=== PATIENT | male | born 1970 | race Hispanic/Latino ===

== ENCOUNTER 2019-11-02 14:05 | Emergency (ER) | payer BC ==
[~2019-11-02] VITALS: Ht 180.3 cm; Wt 100.2 kg
--- OUTSIDE RECORDS SUMMARY | ~2019-11-02 | XMS | Clinical Summary ---
Demographics + + + | Address | [address] | | | [place] [address] | + + + | Home Phone | | + + + | Preferred Language | Unknown | + + + | Marital Status | | + + + | Islam Affiliation | Unknown | + + + | Race | Unknown | + + + | Ethnic Group | or | + + + Author + + + | Author | [facility] | | | and [place] | + + + | Organization | [facility] | | | and [place] | + + + | Address | Unknown | + + + | Phone | Unavailable | + + + Support + + +---------+ + | Name | Relationship | Address | Phone | + + +---------+ + | Bernadette Duffy | ECON | Unknown | | + + +---------+ + Care Team Providers + +------+ + | Care Embedded Firmware Developer Name | Role | Phone | + +------+ + | Unknown, Doctor | PCP | | + +------+ + Allergies No Known Allergies Medications + + + +---------+------+------+-------+ | Medication | Sig | Dispensed | Refills | Star | End | Statu | | | | | | t | Date | s | | | | | | Date | | | + + + +---------+------+------+-------+ | fish oil 1,000 mg | Take by mouth. | | 0 | | | Activ | | capsule | | | | | | e | + + + +---------+------+------+-------+ | gemfibrozil | Take 600 mg by mouth | | 0 | | | Activ | | (LOPID) 600 mg | 2 times daily | | | | | e | | tablet | (before meals). | | | | | | + + + +---------+------+------+-------+ | tiZANidine | Take 4 mg by mouth | | 0 | | | Activ | | (ZANAFLEX) 4 mg | nightly. | | | | | e | | tablet | | | | | | | + + + +---------+------+------+-------+ | ondansetron | Take 1 tablet by | 20 | 0 | 12/0 | | Activ | | (ZOFRAN ODT) 4 mg | mouth 3 (three) | tablet | | 9/20 | | e | | disintegrating | times daily as | | | 19 | | | | tablet | needed for Nausea | | | | | | | | for up to 7 days. | | | | | | + + + +---------+------+------+-------+ | Nerve Stimulator | Left shoulder | 1 | 0 | 02/1 | | Activ | | (TENS THERAPY PAIN | therapy | Device | | 1/20 | | e | | RELIEF) RODGER | | | | 20 | | | + + + +---------+------+------+-------+ | ONE TOUCH ULTRA | | | 0 | 02/0 | | Activ | | TEST strip | | | | 6/20 | | e | | | | | | 20 | | | + + + +---------+------+------+-------+ | Lancets (ONETOUCH | | | 0 | 02/0 | | Activ | | DELICA PLUS | | | | 6/20 | | e | | [id number]) MISC | | | | 20 | | | + + + +---------+------+------+-------+ | meloxicam (MOBIC) | Take 1 tablet by | 90 | 0 | 03/3 | | Activ | | 15 mg tablet | mouth Daily. | tablet | | 03/30 | | e | | | | | | 20 | | | + + + +---------+------+------+-------+ | metFORMIN | Take 500 mg by mouth | | 0 | | | Activ | | (GLUCOPHAGE) 500 mg | 2 times daily (with | | | | | e | | tablet | breakfast & | | | | | | | | dinner). | | | | | | + + + +---------+------+------+-------+ Active Problems + + + | Problem | Noted Date | + + + | Tear of rotator cuff, unspecified laterality, unspecified tear | 01/27/2019 | | extent, unspecified whether traumatic | | + + + + + | Overview: Added automatically from request for surgery | | [id number] | + + + + + | Impingement syndrome of left shoulder region | 01/27/2019 | + + + + + | Overview: Added automatically from request for surgery | | [id number] | + + + + + | Degenerative tear of glenoid labrum, unspecified laterality | 01/27/2019 | + + + + + | Overview: Added automatically from request for surgery | | [id number] | + + Encounters +--------+ + + + + | Date | Type | Specialty | Care Team | Description | +--------+ + + + + | 10/28/ | Telephone | Orthopedic Surgery | Pradip Servin, | Other | | 2020 | | | MD | | +--------+ + + + + | 10/05/ | Office | Orthopedic Surgery | Pradip Servin, | S/P shoulder surgery | | 2019 | Visit | | MD | (Primary Dx) | +--------+ + + + + | 10/04/ | Telephone | Orthopedic Surgery | Pradip Servin, | Screening For | | 2019 | | | MD | Communicable Disease | +--------+ + + + + | 08/24/ | Office | Orthopedic Surgery | Pradip Servin, | S/P shoulder surgery | | 2019 | Visit | | MD | (Primary Dx) | +--------+ + + + + | 08/23/ | Telephone | Orthopedic Surgery | Pradip Servin, | Screening For | | 2019 | | | MD | Communicable Disease | +--------+ + + + + from Last 3 Months Social History + +-------+ +--------+------+ | Tobacco Use | Types | Packs/Day | Years | Date | | | | | Used | | + +-------+ +--------+------+ | Never Smoker | | | | | + +-------+ +--------+------+ + +---+---+---+ | Smokeless Tobacco: | | | | | Never Used | | | | + +---+---+---+ + + +---------+ + | Alcohol Use | Drinks/Week | oz/Week | Comments | + + +---------+ + | Yes | | | RARE / OFTEN ZERO | | | | | PER YEAR | + + +---------+ + + + + | Sex Assigned at | Date Recorded | | | | + + + | Not on file | | + + + Last Filed Vital Signs + + + + + | Vital Sign | Reading | Time Taken | Comments | + + + + + | Blood Pressure | 140/60 | 08/25/2019 11:44 AM | | | | | PDT | | + + + + + | Pulse | 70 | 10/06/2019 11:41 AM | | | | | PDT | | + + + + + | Temperature | 36.9 C (98.5 F) | 10/06/2019 11:41 AM | | | | | PDT | | + + + + + | Respiratory Rate | 18 | 02/16/2019 1:10 PM | | | | | PST | | + + + + + | Oxygen Saturation | 97% | 10/06/2019 11:41 AM | | | | | PDT | | + + + + + | Inhaled Oxygen | - | - | | | Concentration | | | | + + + + + | Weight | 97.2 kg (214 lb 3.2 | 10/06/2019 11:41 AM | | | | oz) | PDT | | + + + + + | Height | 180.3 cm (5' 11") | 10/06/2019 11:41 AM | | | | | PDT | | + + + + + | Body Mass Index | 29.87 | 10/06/2019 11:41 AM | | | | | PDT | | + + + + + Plan of Treatment +--------+---------+ + + + | Date | Type | Specialty | Care Team | Description | +--------+---------+ + + + | 11/30/ | Office | Orthopedic Surgery | Pradip Servin, | | | 2019 | Visit | | [address] | | | | | | [place] [address] | | | | | | [phone] | | | | | | | | +--------+---------+ + + + + + + + + | Health Maintenance | Due Date | Last | Comments | | | | Done | | + + + + + | Hepatitis C | | | | | Screening | 1 | | | + + + + + | Med Mgmt: BUN | | | | | | 1 | | | + + + + + | Med Mgmt: Cr | | | | | | 1 | | | + + + + + | Med Mgmt: HBA1C | | | | | | 1 | | | + + + + + | Med Mgmt: eGFR | | | | | | 1 | | | + + + + + | Medication | | | | | Management | 1 | | | + + + + + | Vaccine: Influenza | | 12/08/19 | | | (#1) | 0 | 15, | | | | | 03/31/19 | | | | | 14, | | | | | 01/10/20 | | | | | 12, | | | | | Addition | | | | | al | | | | | history | | | | | exists | | + + + + + | Vaccine: | | 10/05/19 | | | Dtap/Tdap/Td (7 - | 7 | 17, | | | Td) | | 01/10/20 | | | | | 12, | | | | | 11/08/18 | | | | | 96, | | | | | Addition | | | | | al | | | | | history | | | | | exists | | + + + + + Implants + +--------+--------+ +--------+--------+--------+ | Implanted | Type | Area | Manufacture | Device | Shelf | Model | | | | | r | | Expira | / | | | | | | Identi | tion | Serial | | | | | | fier | Date | / Lot | + +--------+--------+ +--------+--------+--------+ | Button Pec Repair 2.6x10.9 - | Generi | Left: | [employer] | | 11/08/ | AR-226 | | SnaImplanted: Qty: 1 on | c | Should | - ARTX | | 2023 | 6 /NA | | 02/16/2019 by Pradip Serivn | | er | | | | /[id number] | | MD Radha at [facility] | | | | | | 837 | + +--------+--------+ +--------+--------+--------+ Results Not on filefrom Last 3 Months Insurance + +--------+ +--------+-------+---------+--------+ | Payer | Benefi | Subscriber | Effect | Phone | Address | Type | | | t Plan | ID | [place] | | | | | | / | | Dates | | | | | | Group | | | | | | + +--------+ +--------+-------+---------+--------+ | WORKERS COMPENSATION | WORKME | [id number] | | | | Indemn | | | NS | [id number] | 019-Pr | | | ity | | | COMP | | esent | | | | | | OTHER | | | | | | | | WC | | | | | | + +--------+ +--------+-------+---------+--------+ | BCBS | BCBS | [id number] | 03/11/19 | | | PPO | | | OOS | 5 | 19-Pre | | | | | | PPO | | sent | | | | + +--------+ +--------+-------+---------+--------+ + +--------+ +--------+ + + | Guarantor Name | Accoun | Relation to | Date | Phone | Billing Address | | | t Type | Patient | of | | | | | | | | | | + +--------+ +--------+ + + | TatiShankar Abdi | Person | Self | [birth year] | [address] | | | al/Fam | | 1971 | [phone] | [place] | | | shaggy | | | 2 (Home) | [address] | + +--------+ +--------+ + + | DuffyShankargenaro Abdi | Worker | Self | [birth year] | [address] | | | s Comp | | 1970 | [phone] | [place] | | | | | | 2 (Home) | [address] | + +--------+ +--------+ + + Advance Directives + + + + + | Type | Date Recorded | Patient | Explanation | | | | Software Configuration Specialist | | + + + + + | Power of | | | | | Industrial Psychology Professor | | | | + + + + + | Advance | | | | | Directive | | | | + + + + +
--- OUTSIDE RECORDS SUMMARY | ~2019-11-02 | XMS | Encounter Summary ---
Demographics + + + | Address | [address] | | | [place] [address] | + + + | Home Phone | | + + + | Preferred Language | Unknown | + + + | Marital Status | | + + + | Jew Affiliation | CAT | + + + | Race | Unknown | + + + | Ethnic Group | or | + + + Author + + + | Author | [facility] | + + + | Organization | [facility] | + + + | Address | Unknown | + + + | Phone | Unavailable | + + + Support + + + + + | Name | Relationship | Address | Phone | + + + + + | Bernadette Chino | ECON | [address] | | | [place] | | [place] [address] | | + + + + + Care Team Providers + +------+ + | Care Swatch Cutter Name | Role | Phone | + +------+ + | Sherley Mora AUTOMATIC DRILLER AND [employer]AMER | PCP | | + +------+ + Reason for Referral Physical Therapy (Routine) +--------+--------+ + + + + | Status | Reason | Specialty | Diagnoses / | Referred By | Referred To | | | | | Procedures | Contact | Contact | +--------+--------+ + + + + | Closed | | Physical | Diagnoses | [place], | | | | | Therapy / Non | Tear of | Aakash Collazo MD | | | | | [facility] | left rotator | [address] | | | | | Department | cuff, | [address] | | | | | | unspecified | | | | | | | tear extent | [place], | | | | | | Procedures | [place] [address] | | | | | | PHYSICAL | Phone: | | | | | | THERAPY | [phone] | | | | | | REFERRAL | Fax: | | | | | | | [phone] | | +--------+--------+ + + + + Reason for Visit + + + | Reason | Comments | + + + | Follow-up visit | left shoulder pain | + + + Encounter Details +--------+---------+ + + + | Date | Type | Department | Care Team | Description | +--------+---------+ + + + | 07/01/ | Office | [facility] | Aakash Faith MD | Tear of left rotator | | 2019 | Visit | Sports Medicine & | [address] | cuff, unspecified | | | | Orthopaedic Surgery | Iilr OLIVAREZ, | tear extent (Primary | | | | [address] | [place] [address] | Dx) | | | | [place], [place] | [phone] | | | | | [address] | | | | | | [phone] | | | +--------+---------+ + + + Social History + +-------+ +--------+------+ | Tobacco [...] Comments | + + +---------+ + | No | | | | + + +---------+ + + + + | Sex Assigned at | Date Recorded | | | | + + + | Not on file | | + + + documented as of this encounter Patient Instructions Patient Instructions Erick Jose MA - 07/01/2018 3:00 PM PDTYou were given a cortisone injection for your left shoulder pain. Ice tonight and tomorrow if sore. We have put in a referral for PT. The will be calling you to schedule. Take anti-inflammatories (diclofenac) on schedule. We will see you back in 6-8 weeks to check your progress. documented in this encounter Progress Notes Aakash Faith MD - 07/01/2018 3:00 PM PDTChief Complaint: Left shoulder pain. HPI: Shankar Abdi is a 48 y.o. 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 He reports to a dagoberto radual onset of shoulder pain back in December. He reports no mechanism to his shoulder pain. He does a lot a lifting and repetitive activities at work. His pain is located primarily a t the anterior aspect of his shoulder. He does have some posterior shoulder pain at times. H e reports that his shoulder pain is worsened with increased activities. He has increased alden n at night. He reports limited shoulder abduction. Overall, his strength is good. He has so me difficulties lifting while he's at work. He was seen by his PCP where x-rays were unremar kable. He was last seen in the office on 05/20/18. His clinical history and physical exam are consi stent with left shoulder rotator cuff tendinitis and AC joint arthritis. He was referred for an MRI to evaluate this further. He was also started on volatren. He reports compliance wit h this. His MRI demonstrates left shoulder rotator cuff tendonitis. His pain in mainly with lifting. He returns to the office today in routine follow up. He works for [employer]. He denies significant previous shoulder problems. Overall, the patient feels unchanged. Current pain is 4/10 and is characterized as sharp a nd intermittent. Symptoms are unchanged. The pain does wake the patient at night. It is associated with weakness. Symptoms are aggravated by twisting, bending, lifting and overhea d activities, and improve with rest. He is using no medications for the pain. Review of Systems: Completed and reviewed with patient per patient intake form. Pertinent positives noted in HPI. See scanned document in media section for reference. No general, systemic or constitu tional issues. Denies chest pain or shortness of breath. Denies fever or chills. No skin a brasions / lesions except as noted. Physical Exam: There were no vitals taken for this visit. General/Constitutional: Well developed, well nourished male, alert and oriented, and in no acute distress. Left shoulder: Inspection: No swelling or obvious deformities. Palpation: mild AC joint tenderness. Mild anterior cuff tenderness. No subacromial crepi tus. Range of motion: FF 145. ER 90 Strength: FF 5-/5 seated and 5/5 supine. ER 5-/5 seated and supine Stability: Good stability Special Tests: Mild pain on secondary impingement test. Mild pain on primary impingement test. No pain on cross-arm testing. Negative bear huggers test Diagnostic Imaging: MRI demonstrates tendonitis with a bursal sided tear. Injection Left Shoulder: Subacromial Risks and complications were discussed with the patient today. All questions were answered . Correct patient, site, and side were confirmed. After informed consent, a sterile prep w as performed on the left shoulder. A solution of 1 cc of Dexamethasone 4 mg/mL and 1 cc of Depo-Medrol 80mg/mL with 4 cc 0.25% Marcaine was injected into subacromial space. A sterile dressing was applied. The patient tolerated the procedure well and there were no complicati ons. Assessment: Left shoulder rotator cuff tendinitis with a bursal sided tear Shoulder AC joint arthritis Plan: His MRI demonstrates a bursal sided intra substance tear and tendonitis. We will continue with non operative treatment. In an effort to decrease his pain, I have injected his should er with cortisone. He will start therapy. I will see him back in the office in 8 weeks. If he fails to improve we will need to consider surgical intervention. Follow up: Aakash Faith MD [facility] Rehabilitation Clinical Air Director Board Certified Orthopaedic Surgeon Fellowship Trained in Sports Medicine and Arthroscopic Surgery Specializing in Knee and Shoulder Surgery [facility] [address] [place] [address] Office: [phone] [email or web address] documented in this enc ounter Plan of Treatment Not on filedocumented as of this encounter Procedures + +--------+ + + + | Procedure Name | Priori | Date/Time | Associated Diagnosis | Comments | | | ty | | | | + +--------+ + + + | MN DRAIN/INJECT | Routin | 07/01/2018 | Tear of left | | | LARGE JOINT/BURSA | e | 5:24 PM | rotator cuff, | | | W/O US GUIDE | | PDT | unspecified tear | | | | | | extent | | + +--------+ + + + documented in this encounter Visit Diagnoses + + | Diagnosis | + + | Tear of left rotator cuff, unspecified tear extent - Primary | + + documented in this encounter Administered Medications + +--------+ +------+------+ + | Medication Order | MAR | Action | Dose | Rate | Site | | | Action | Date | | | | + +--------+ +------+------+ + | Dexamethasone Intraarticular | Given | | 4 mg | | Left | | | | 9 16:14 | | | Shoulder | | | | PDT | | | | + +--------+ +------+------+ + +---+---+ | | | +---+---+ + +-------+ +-------+---+ + | Methylprednisolone Acetate 80 | Given | | 80 mg | | Left | | Mg Intraarticular | | 9 16:14 | | | Shoulder | | | | PDT | | | | + +-------+ +-------+---+ + +---+---+ | | | +---+---+ documented in this encounter"
--- OUTSIDE RECORDS SUMMARY | ~2019-11-02 | XMS | Encounter Summary ---
Demographics + + + | Address | [address] | | | [place] [address] | + + + | Home Phone | | + + + | Preferred Language | Unknown | + + + | Marital Status | | + + + | Orthodoxy Affiliation | CAT | + + + | Race | Unknown | + + + | Ethnic Group | or | + + + Author + + + | Author | [facility] | + + + | Organization | [facility] | + + + | Address | Unknown | + + + | Phone | Unavailable | + + + Support + + + + + | Name | Relationship | Address | Phone | + + + + + | Bernadette Chino | ECON | [address] | | | [place] | | [place] [address] | | + + + + + Care Team Providers + +------+ + | Care Prototype Engineer Name | Role | Phone | + +------+ + | Mayda Flores INSTRUCTOR OF NURSING | PCP | | + +------+ + Reason for Referral PROC - Outpatient Surgery (Routine) +--------+--------+ + + + + | Status | Reason | Specialty | Diagnoses / | Referred By | Referred To | | | | | Procedures | Contact | Contact | +--------+--------+ + + + + | Closed | | Surgery | Diagnoses | Garrett Leong | Garrett Leong | | | | | Mass in | MD [address] | MD [address] | | | | | neck | E , | , [address] | | | | | Procedures | [address] | | | | | REQUEST TO | [place] | | | | | SURGERY | [address] | [address] | | | | | [employer] | Phone: | Phone: | | | | | [place] [facility] | [phone] | [phone] | | | | | [facility] | Fax: | Fax: | | | | | NECK/CHEST,S | [phone] | [phone] | | | | | [place] | | | | | | | EXC NECK LES | | | | | | | SC=3CM | | | +--------+--------+ + + + + Reason for Visit + + + | Reason | Comments | + + + | New Patient Visit | mass of back of neck | + + + Consultation (Routine) +--------+--------+ + + + + | Status | Reason | Specialty | Diagnoses / | Referred By | Referred To | | | | | Procedures | Contact | Contact | +--------+--------+ + + + + | Closed | | Surgery | Diagnoses | Leyva, | [facility] | | | | | Localized | Vanna, BEVERAGE SERVER | S[facility] | | | | | swelling, | Angelina | [address] | | | | | mass and | Medical | [address] | | | | | lump, neck | [address] | [place], [place] | | | | | | [place] | [address] | | | | | | St | Phone: | | | | | | [place], | [phone] | | | | | | [place] [address] | Fax: | | | | | | Phone: | [phone] | | | | | | [phone] | | | | | | | Fax: | | | | | | | [phone] | | +--------+--------+ + + + + Encounter Details +--------+---------+ + + + | Date | Type | Department | Care Team | Description | +--------+---------+ + + + | 08/07/ | Office | [facility] | Garrett Leong MD | Mass in neck | | 2017 | Visit | Surgery Clinic [address] | (Primary Dx) | | | | [address] | [address] [place], [place] | | | | | [place], [place] | [address] | | | | | [address] | [phone] | | | | | [phone] | | | +--------+---------+ + + + Social History + +-------+ +--------+------+ | Tobacco Use | Types | Packs/Day | Years | Date | | | | | Used | | + +-------+ +--------+------+ | Never Smoker | | | | | + +-------+ +--------+------+ + + + | Sex Assigned at | Date Recorded | | | | + + + | Not on file | | + + + documented as of this encounter Last Filed Vital Signs + + + + + | Vital Sign | Reading | Time Taken | Comments | + + + + + | Blood Pressure | 135/84 | 08/07/2016 8:00 AM | | | | | PDT | | + + + + + | Pulse | 47 | 08/07/2016 8:00 AM | | | | | PDT | | + + + + + | Temperature | - | - | | + + + + + | Respiratory Rate | - | - | | + + + + + | Oxygen Saturation | - | - | | + + + + + | Inhaled Oxygen | - | - | | | Concentration | | | | + + + + + | Weight | 96.2 kg (212 lb) | 08/07/2016 8:00 AM | | | | | PDT | | + + + + + | Height | 180.3 cm (5' 11") | 08/07/2016 8:00 AM | | | | | PDT | | + + + + + | Body Mass Index | 29.57 | 08/07/2016 8:00 AM | | | | | PDT | | + + + + + documented in this encounter Progress Notes Garrett Leong MD - 08/07/2016 8:00 AM PDTFormatting of this note might be different from t he original. Assessment: Large symptomatic mass of the posterior neck. It is quite sizable an symptoma tic and excision would be prudent. It likely is benign as is been present for a long-standi ng period but has been growing throughout this time period. I described the procedure of ex cision all biopsy of it. Likely will eliminate his symptoms with sometimes people's neck sym ptoms can be related to something else. I do not think imaging is necessary if he is going to have it excised which is his preference. I will get him scheduled for such I went over t he risks and benefits of the surgery. HPI: Is a 46-year-old gentleman who has had a mass of the posterior neck which has been en larging over the past 10 years or so. He has gotten so sizable at this point that he has lo calized symptoms of pain and discomfort with tenderness of this region. He does wish to get this removed at this point in time. PE: HEENT: Sclerae were nonicteric neck shows no lymphadenopathy no thyromegaly and no JVD. O n the posterior base of his neck is there is a sizable soft tissue mass of the subcutaneous tissue. It does not feel subfascial on my current examination. It is about 8-10 centimeters in size though. Lungs: Clear Heart: Regular rate rhythm with no murmurs Abdomen: Nontender with no hepatosplenomegaly and no masses Extremities: No clubbing cyanosis or edema Past Medical History No past medical history on file. Past Surgical History No past surgical history on file. Medications: Current Outpatient Prescriptions: azelastine 137 mcg (0.1 %) nasal aerosol,spray, , Disp: , Rfl: Fish Oil-[place]-3 Fatty Acids (FISH OIL) 340-1,000 mg oral capsule, Take by mouth., Disp: , Rfl: gemfibrozil 600 mg oral tablet, , Disp: , Rfl: NIACIN ORAL, Take by mouth., Disp: , Rfl: Selenium Sulfide 2.25 % topical shampoo, Apply to affected area once and leave on overnight , then wash off in the morning. Then use as body wash 2-3 times weekly for maintenance, Disp : 180 mL, Rfl: 11 VENTOLIN HFA 90 mcg/actuation inhalation HFA aerosol inhaler, , Disp: , Rfl: 0 Allergies: No Known Allergies Social History: Social History Social History Marital status: Spouse name: N/A Number of children: N/A Years of education: N/A Occupational History Not on file. Social History Main Topics Smoking status: Never Smoker Smokeless tobacco: Not on file Alcohol use Not on file Drug use: Not on file Sexual activity: Not on file Other Topics Concern Not on file Social History Narrative Vital Signs: BP 135/84 | Pulse 47 | Ht 1.803 m (5' 11") | Wt 96.2 kg (212 lb) | BMI 29.57 k g/(m^2) ROS Review of Systems Constitutional: Negative for chills, fever and malaise/fatigue. HENT: Negative for congestion. Respiratory: Negative for shortness of breath and wheezing. Cardiovascular: Negative for chest pain and palpitations. Gastrointestinal: Negative for constipation, diarrhea, nausea and vomiting. Genitourinary: Negative. Musculoskeletal: Positive for neck pain. Negative for back pain and joint pain. Neurological: Negative for dizziness, weakness and headaches. Endo/Heme/Allergies: Does not bruise/bleed easily. All other systems reviewed and are negative. Patient was offered furniture restorer for today's visit and declined. No results found for: NA, K, CL, BICARB, BUN, CR, GLU, CA, AST, ALT, AP, TBILI, TP, ALB, DI RBILI, ANIONGAP, ANIONALBCOR No results found for: WBC, HB, HCT, PLT, MCV, RDW documented in this encou nter Plan of Treatment Not on filedocumented as of this encounter Visit Diagnoses + + | Diagnosis | + + | Mass in neck - Primary Swelling, mass, or lump in head and neck | + + documented in this encounter
--- OUTSIDE RECORDS SUMMARY | ~2019-11-02 | XMS | Encounter Summary ---
Demographics + + + | Address | [facility] [address] | | | [place] [address] | + + + | Home Phone | | + + + | Preferred Language | Unknown | + + + | Marital Status | | + + + | Restoration Affiliation | Unknown | + + + | Race | Unknown | + + + | Ethnic Group | or | + + + Author + + + | Author | [facility] | | | and [place] | + + + | Organization | [facility] | | | and [...] Team Providers + +------+ + | Care Medical Care Manager Name | Role | Phone | + +------+ + | Unknown, Doctor | PCP | | + +------+ + Reason for Referral Evaluate & Treat (Routine) +--------+ + + + + + | Status | Reason | Specialty | Diagnoses / | Referred By | Referred To | | | | | Procedures | Contact | Contact | +--------+ + + + + + | Closed | Specialty | Physical | Diagnoses | Atif Cantu | | | Services | Therapy | | Bakari | [place] | | | Required | | Degenerative | JAMISON Rodney | PHYSICAL | | | | | tear of | [address] | THERAPY - | | | | | glenoid | [address] | [address] | | | | | labrum, | [place], [place] | [address] | | | | | unspecified | [address] | [address], | | | | | laterality | Phone: | [place] | | | | | | [phone] | [address] | | | | | | Fax: | Phone: | | | | | | [phone] | [phone] | | | | | | | Fax: | | | | | | | [phone] | +--------+ + + + + + Reason for Visit + + + | Reason | Comments | + + + | Post-op Exam | Left Shoulder | + + + Evaluate & Treat (Routine) + +--------+ + + + + | Status | Reason | Specialty | Diagnoses / | Referred By | Referred To | | | | | Procedures | Contact | Contact | + +--------+ + + + + | Authorized | | Orthopedic | Diagnoses | Nettles, | Sukhi Nw Osm | | | | Surgery | Unspecified | Ortiz | [address] | | | | | rotator | MD Riley | [address] | | | | | cuff tear or | [address] | [place], [place] | | | | | rupture of | [address] | [address] | | | | | left | [address] | Phone: | | | | | shoulder, | [place], | [phone] | | | | | not | [place] [address] | Fax: | | | | | specified as | Phone: | [phone] | | | | | traumatic | [phone] | | | | | | Left | Fax: | | | | | | Shoulder | [phone] | | | | | | (urgent care | | | | | | | referring) | | | + +--------+ + + + + Encounter Details +--------+---------+ + + + | Date | Type | Department | Care Team | Description | +--------+---------+ + + + | 02/25/ | Office | [facility] | Bakari Cantu | S/P shoulder surgery | | 2019 | Visit | [facility] | [address] | (Primary Dx); | | | | MEDICINE JAIME | [address] [place], | Degenerative tear of | | | | [address] | [place] [address] | glenoid labrum, | | | | [place], [place] | [phone] | unspecified | | | | [address] | | laterality | | | | [phone] | | | +--------+---------+ + + + [...] + + + | Blood Pressure | 150/60 | 02/25/2019 1:56 PM | | | | | PST | | + + + + + | Pulse | 84 | 02/25/2019 1:56 PM | | | | | PST | | + + + + + | Temperature | - | - | | + + + + + | Respiratory Rate | - | - | | + + + + + | Oxygen Saturation | 97% | 02/25/2019 1:56 PM | | | | | PST | | + + + + + | Inhaled Oxygen | - | - | | | Concentration | | | | + + + + + | Weight | 97.8 kg (215 lb 9.6 | 02/25/2019 1:56 PM | | | | oz) | PST | | + + + + + | Height | 180.3 cm (5' 11") | 02/25/2019 1:56 PM | | | | | PST | | + + + + + | Body Mass Index | 30.07 | 02/25/2019 1:56 PM | | | | | PST | | + + + + + documented in this encounter Progress Bakari Cross PA - 02/25/2019 2:00 PM PSTFormatting of this note might be differen t from the original. [facility] Service: Orthopedic Surgery Post Op Note Procedure: 1. Left shoulder arthroscopic debridement, extensive 2. Left shoulder arthroscopic subacromial decompression 3. Left open biceps tenodesis Date of Procedure: 02/16/2019 Subjective: Shankar Duffy is seen today for their post operative followup visit.. He is havin g normal postoperative pain. He has made in his sling. He denies numbness or tingling. He has no concerns at this time. Objective: Wt Readings from Last 1 Encounters: 02/16/19 97.5 kg (215 lb) Temp Readings from Last 1 Encounters: 02/16/19 36.2 C (97.1 F) (Temporal) BP Readings from Last 1 Encounters: 02/16/19 130/78 Pulse Readings from Last 1 Encounters: 02/16/19 64 Exam: Left shoulder Incisions are healing well without signs of infection. Sutures were removed and Steri-Strip dressing applied. Palpable radial pulse Sensation intact to light touch Assessment & Plan: I reviewed with the patient the details of their surgery today and we discussed beginning t herapy. We have provided them a physical therapy protocol and prescription and reviewed this with them. We discussed the importance of continuing to wear their sling at all times excep t for therapy and showering and reinforced the importance of not actively using their should er. We will plan to see them back in 3 weeks at which time we will begin to wean them out of their sling. All questions were answered. We also discussed pain management prescription wa s not given. They understood this plan. An APF will be faxed. Bakari Cantu PA-C has created this entry using [employer] Voice Recognition software and [employer] macros. The entry has been reviewed and there may still exist sound alike word e rrors. documented in this encounter Plan of Treatment +--------+---------+ + + + | Date | Type | Specialty | Care Team | Description | +--------+---------+ + + + | 11/30/ | Office | Orthopedic Surgery | Pradip Servin, | | | 2019 | Visit | | [address] [facility] [facility] | | | | | | [place] [address] | | | | | | [phone] | | | | | | | | +--------+---------+ + + + + + +--------+ + + | Name | Type | Priori | Associated Diagnoses | Order Schedule | | | | ty | | | + + +--------+ + + | Ambulatory referral | Outpatient | Routin | Degenerative tear | Ordered: 02/25/2019 | | to Physical Therapy | Referral | e | of glenoid labrum, | | | | | | unspecified | | | | | | laterality | | + + +--------+ + + documented as of this encounter Visit Diagnoses + + | Diagnosis | + + | S/P shoulder surgery - Primary Other postprocedural status | + + | Degenerative tear of glenoid labrum, unspecified laterality | + + documented in this encounter
--- OUTSIDE RECORDS SUMMARY | ~2019-11-02 | XMS | Encounter Summary ---
Demographics + + + | Address | [address] | | | [place] [address] | + + + | Home Phone | | + + + | Preferred Language | Unknown | + + + | Marital Status | | + + + | Jew Affiliation | CAT | + + + | Race | Unknown | + + + | Ethnic Group | or | + + + Author + + + | Author | [facility] | + + + | Organization | [facility] | + + + | Address | Unknown | + + + | Phone | Unavailable | + + + Support + + + + + | Name | Relationship | Address | Phone | + + + + + | Bernadette Chino | ECON | [address] | | | [place] | | [place] [address] | | + + + + + Care Team Providers + +------+ + | Care Pharmacologist Name | Role | Phone | + +------+ + | No Pcp Per Patient | PCP | Unavailable | + +------+ + Encounter Details +--------+ + + + + | Date | Type | Department | Care Team | Description | +--------+ + + + + | 07/18/ | Documentati | [facility] | Nilson Raymond RCP | | | 2016 | on | Medical Clinic - | [address] | | | | | Sleep Medicine [address] | [place] | | | | | [place] | [address] | | | | | [place] | | | | | | [address] | | | | | | [phone] | | | +--------+ + + + + Social History + +-------+ [...] + + documented as of this encounter Miscellaneous Notes Telephone Encounter - Nilson Raymond RCP - 07/19/2015 10:16 AM PDTSpoke to patient via phone.He said the pressure change was perfect, but asked to set his EPR to on, 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 He also asked me to send him replacement cushions for his mask which I will. documented in this encounter Plan of Treatment Not on filedocumented as of this encounter Visit Diagnoses Not on filedocumented in this encounter"
--- OUTSIDE RECORDS SUMMARY | ~2019-11-02 | XMS | Encounter Summary ---
Demographics + + + | Address | [address] | | | [place] [address] | + + + | Home Phone | | + + + | Preferred Language | Unknown | + + + | Marital Status | | + + + | Pentecostalism Affiliation | CAT | + + + | Race | Unknown | + + + | Ethnic Group | or | + + + Author + + + | Author | [facility] | + + + | Organization | [facility] | + + + | Address | Unknown | + + + | Phone | Unavailable | + + + Support + + + + + | Name | Relationship | Address | Phone | + + + + + | Bernadette Chino | ECON | [address] | | | [place] | | [place] [address] | | + + + + + Care Team Providers + +------+ + | Care Medical And Health Services Manager Name | Role | Phone | + +------+ + | No Pcp Per Patient | PCP | Unavailable | + +------+ + Reason for Referral Diagnostic Testing (Routine) +--------+--------+ + + + + | Status | Reason | Specialty | Diagnoses / | Referred By | Referred To | | | | | Procedures | Contact | Contact | +--------+--------+ + + + + | Closed | | Radiology | Diagnoses | Donnie | Usha | | | | | Lumbar | Sravanthi Collazo MD | General | | | | | radiculopath | [address] | Radiology | | | | | y | St THE | [address] | | | | | Procedures | [place] | St The | | | | | MRI SPINE | [address] | [place] | | | | | LUMBAR WO | Phone: | [phone] | | | | | CONTRAST | [phone] | Phone: | | | | | | Fax: | [phone] | | | | | | [phone] | Fax: | | | | | | | [phone] | +--------+--------+ + + + + Reason for Visit Diagnostic Testing (Routine) +--------+--------+ + + + + | Status | Reason | Specialty | Diagnoses / | Referred By | Referred To | | | | | Procedures | Contact | Contact | +--------+--------+ + + + + | Closed | | Radiology | Diagnoses | Donnie, | Mc[facility] | | | | | Lumbar | Sravanthi Collazo MD | General | | | | | radiculopath | [address] | Radiology | | | | | y | St THE | [address] | | | | | Procedures | [place] | St The | | | | | MRI SPINE | [address] | [place] | | | | | LUMBAR WO | Phone: | [phone] | | | | | CONTRAST | [phone] | Phone: | | | | | | Fax: | [phone] | | | | | | [phone] | Fax: | | | | | | | [phone] | +--------+--------+ + + + + Encounter Details +--------+ + + + + | Date | Type | Department | Care Team | Description | +--------+ + + + + | 04/12/ | Hospital | Diagnostic Imaging | Sravanthi Krishna MD | | | 2019 | Encounter | at [facility] | [address] | | | | | [address] | [place], [place] | | | | | [place] | [address] | | | | | [address] | [phone] | | | | | [phone] | | | +--------+ + + + [...] + + documented as of this encounter Medications at Time of Discharge + + + +---------+ + + | Medication | Sig | Dispensed | Refills | Start | End Date | | | | | | Date | | + + + +---------+ + + | ERGOCALCIFEROL | Take by mouth. | | 0 | | | | (VITAMIN D2) | | | | | | | (VITAMIN D ORAL) | | | | | | + + + +---------+ + + | Fish Oil-[place]-3 | Take by mouth two | | 0 | | | | Fatty Acids (FISH | times daily. | | | | | | OIL) 340-1,000 mg | | | | | | | oral capsule | | | | | | + + + +---------+ + + | gabapentin 100 mg | 1-3 po qhs for nerve | 60 | 2 | //20 | | | oral capsule | pain | capsule | | 19 | | + + + +---------+ + + | gemfibrozil 600 mg | Take 600 mg by mouth | | 0 | 06/24/19 | | | oral tablet | two times daily. | | | 16 | | + + + +---------+ + + documented as of this encounter Plan of Treatment Not on filedocumented as of this encounter Procedures + +--------+ + + + | Procedure Name | Priori | Date/Time | Associated Diagnosis | Comments | | | ty | | | | + +--------+ + + + | MRI SPINE LUMBAR WO | Routin | 04/12/2018 | Lumbar | Results for this | | CONT | e | 10:11 AM | radiculopathy | procedure are in the | | | | PST | | results section. | + +--------+ + + + documented in this encounter Results MRI SPINE LUMBAR WO CONTRAST (04/12/2018 10:11 AM PST) + + | Specimen | + + | | + + + + + | Narrative | Performed At | + + + | [address] | [facility] | | [place] [address] | [facility] | | [phone] Name: JUSTIN MANN Phys: | RADIOLOGY | | SRAVANTHI KRISHNA : 1970 Sex: M CSN: | | | [id number] MR# [id number] Exam Date: 04/12/2018 | | | EXAM: MRI SPINE LUMBAR WO CONTRAST [id number] CLINICAL HISTORY: Low | | | back pain. Right lumbar radiculopathy. COMPARISON: Lumbar | | | spine MRI 11/14/2007. TECHNIQUE: Axial T1 and T2 weighted images, | | | sagittal STIR, T1, and T2 weighted images, and coronal T2 weighted | | | images were obtained. FINDINGS: The conus medullaris terminates | | | at L1. The signal intensity within the visualized spinal cord and | | | nerve roots is unremarkable. The visualized portion of the | | | retroperitoneum including the kidneys is unremarkable. The | | | paraspinous musculature is unremarkable. There is no acute | | | fracture or focal bone marrow edema. Bone marrow signal intensity | | | is normal. A level by level description of findings within the | | | lumbar spine is as follows: T12-L1: No significant disc bulge, | | | spinal canal stenosis, or foraminal stenosis. L1-L2: No | | | significant disc bulge, spinal canal stenosis, or foraminal stenosis. | | | L2-L3: No significant disc bulge, spinal canal stenosis, or | | | foraminal stenosis. L3-L4: Minimal broad-based disc bulge with | | | moderate to severe bilateral facet arthrosis and mild hypertrophy of | | | the ligamentum flavum. There is no spinal canal stenosis. | | | However, there is mild bilateral lateral recess and neural | | | foraminal stenosis. L4-L5: Slight interval progression of | | | moderate intervertebral disc space narrowing with a small broad-based | | | disc bulge, mild bilateral facet arthrosis, and mild hypertrophy of | | | the ligamentum flavum. There is no spinal canal or neural foraminal | | | stenosis. L5-S1: Significant intervertebral disc space loss with | | | a small bilobed disc bulge and severe right and mild left facet | | | arthrosis. There is moderate right lateral recess and neural | | | foraminal stenosis. No significant left neural foraminal stenosis or | | | spinal canal stenosis. The degree of right lateral recess and | | | foraminal stenosis has progressed since the prior study. | | | IMPRESSION: 1. Interval progression of moderate right lateral recess | | | and neural foraminal stenosis at the L5-S1 level due to a combination | | | of a small bilobed disc bulge and severe right facet arthrosis. 2. | | | Additional multilevel degenerative changes at both the L3-L4 and | | | L4-L5 level as detailed above. There is mild bilateral lateral | | | recess and neural foraminal stenosis at the L3-L4 level. | | | REPORT SIGNED IN OTHER VENDOR SYSTEM 04/12/2018 Reported by: | | | Marcelino Ferris MD Electronically signed by: Marcelino Ferris MD | | | Transcribed Date/Time: 04/12/2018 17:05 [employer]: FLUENCY | | | | | + + + + + | Procedure Note | + + | Interface, Radiology Results - 04/12/2018 5:10 PM PST [address] | | [place] [address] | | Name: JUSTIN MANN Phys: SRAVANTHI KRISHNA : 1970 Sex: M | | CSN: [id number] MR# [id number] Exam Date: 04/12/2018 EXAM:MRI SPINE LUMBAR WO | | CONTRAST [id number] CLINICAL HISTORY:Low back pain. Right lumbar radiculopathy. | | COMPARISON:Lumbar spine MRI 11/14/2007. TECHNIQUE:Axial T1 and T2 weighted images, | | sagittal STIR, T1, and T2 weightedimages, and coronal T2 weighted images were obtained. | | FINDINGS:The conus medullaris terminates at L1. The signal intensity withinthe | | visualized spinal cord and nerve roots is unremarkable. Thevisualized portion of the | | retroperitoneum including the kidneys isunremarkable. The paraspinous musculature is | | unremarkable. There is no acute fracture or focal bone marrow edema. Bone marrowsignal | | intensity is normal. A level by level description of findings within the lumbar spine | | isas follows: T12-L1: No significant disc bulge, spinal canal stenosis, orforaminal | | stenosis. L1-L2: No significant disc bulge, spinal canal stenosis, orforaminal | | stenosis. L2-L3: No significant disc bulge, spinal canal stenosis, orforaminal | | stenosis. L3-L4: Minimal broad-based disc bulge with moderate to severebilateral facet | | arthrosis and mild hypertrophy of the ligamentumflavum. There is no spinal canal | | stenosis. However, there is mildbilateral lateral recess and neural foraminal stenosis. | | L4-L5: Slight interval progression of moderate intervertebral discspace narrowing with | | a small broad-based disc bulge, mild bilateralfacet arthrosis, and mild hypertrophy of | | the ligamentum flavum.There is no spinal canal or neural foraminal stenosis. L5-S1: | | Significant intervertebral disc space loss with a smallbilobed disc bulge and severe | | right and mild left facet arthrosis.There is moderate right lateral recess and neural | | foraminal stenosis.No significant left neural foraminal stenosis or spinal | | canalstenosis. The degree of right lateral recess and foraminal stenosishas progressed | | since the prior study. IMPRESSION:1. Interval progression of moderate right lateral | | recess and neuralforaminal stenosis at the L5-S1 level due to a combination of a | | smallbilobed disc bulge and severe right facet arthrosis.2. Additional multilevel | | degenerative changes at both the L3-L4 andL4-L5 level as detailed above. There is mild | | bilateral lateralrecess and neural foraminal stenosis at the L3-L4 level. REPORT | | SIGNED IN OTHER VENDOR SYSTEM 04/12/2018 Reported by: Marcelino Ferris MD Electronically | | signed by: Marcelino Ferris MD Transcribed Date/Time: 04/12/2018 17:05Transcriptionist: | | FLU[facility] | | | |A level by level description of findings within the lumbar spine is | |as follows: | | | |T12-L1: No significant disc bulge, spinal canal stenosis, or | |foraminal stenosis. | | | |L1-L2: No significant disc bulge, spinal canal stenosis, or | |foraminal stenosis. | | | |L2-L3: No significant disc bulge, spinal canal stenosis, or | |foraminal stenosis. | | | |L3-L4: Minimal broad-based disc bulge with moderate to severe | |bilateral facet arthrosis and mild hypertrophy of the ligamentum | |flavum. There is no spinal canal stenosis. However, there is mild | |bilateral lateral recess and neural foraminal stenosis. | | | |L4-L5: Slight interval progression of moderate intervertebral disc | |space narrowing with a small broad-based disc bulge, mild bilateral | |facet arthrosis, and mild hypertrophy of the ligamentum flavum. | |There is no spinal canal or neural foraminal stenosis. | | | |L5-S1: Significant intervertebral disc space loss with a small | |bilobed disc bulge and severe right and mild left facet arthrosis. | |There is moderate right lateral recess and neural foraminal stenosis. | |No significant left neural foraminal stenosis or spinal canal | |stenosis. The degree of right lateral recess and foraminal stenosis | |has progressed since the prior study. | | | |IMPRESSION: | |1. Interval progression of moderate right lateral recess and neural | |foraminal stenosis at the L5-S1 level due to a combination of a small | |bilobed disc bulge and severe right facet arthrosis. | |2. Additional multilevel degenerative changes at both the L3-L4 and | |L4-L5 level as detailed above. There is mild bilateral lateral | |recess and neural foraminal stenosis at the L3-L4 level. | | | | | | REPORT SIGNED IN OTHER VENDOR SYSTEM 04/12/2018 | |Reported by: Marcelino Ferris MD | | | |Electronically signed by: Marcelino Ferris MD | | | |Transcribed Date/Time: 04/12/2018 17:05 | |[employer]: FLUENCY | | | | | | | + + + +---------+ + + | Performing | Address | City/State/Zipcode | Phone Number | | Organization | | | | + +---------+ + + | [facility] | | | | [facility] | | | | + +---------+ + + documented in this encounter Visit Diagnoses + + | Diagnosis | + + | Lumbar radiculopathy Thoracic or lumbosacral neuritis or radiculitis, unspecified | + + documented in this encounter"
--- OUTSIDE RECORDS SUMMARY | ~2019-11-02 | XMS | Encounter Summary ---
Demographics + + + | Address | [address] | | | [place] [address] | + + + | Home Phone | | + + + | Preferred Language | Unknown | + + + | Marital Status | | + + + | Zoroastrian Affiliation | CAT | + + + [...] | | [place] | | [place] [address] | | + + + + + Care Team Providers + +------+ + | Care Silo Filler Name | Role | Phone | + +------+ + | No Pcp Per Patient | PCP | Unavailable | + +------+ + Reason for Visit + + + | Reason | Comments | + + + | THONY - obstructive | | | Sleep Apnea | | + + + Encounter Details +--------+---------+ + + + | Date | Type | Department | Care Team | Description | +--------+---------+ + + + | 06/29/ | Office | Sleep Medicine at | Garrett Yen, | THONY (obstructive | | 2016 | Visit | [facility] [address] | MD [address] | sleep apnea) | | | | [address] | [address] [place] | (Primary Dx) | | | | [place] | [address] | | | | | [address] | [phone] | | | | | [phone] | | | +--------+---------+ + + + [...] + + + | Blood Pressure | 126/84 | 06/30/2015 2:39 PM | | | | | PDT | | + + + + + | Pulse | 72 | 06/30/2015 2:39 PM | | | | | PDT | | + + + + + | Temperature | - | - | | + + + + + | Respiratory Rate | - | - | | + + + + + | Oxygen Saturation | 96% | 06/30/2015 2:39 PM | | | | | PDT | | + + + + + | Inhaled Oxygen | - | - | | | Concentration | | | | + + + + + | Weight | 99.8 kg (220 lb) | 06/30/2015 2:39 PM | | | | | PDT | | + + + + + | Height | 180.3 cm (5' 11") | 06/30/2015 2:39 PM | | | | | PDT | | + + + + + | Body Mass Index | 30.68 | 06/30/2015 2:39 PM | | | | | PDT | | + + + + + documented in this encounter Patient Instructions Patient Instructions Garrett Yen MD - 06/30/2015 2:43 PM PDT1. THONY (obstructive sleep apnea) Need for new PAP device and interface due to obsolescence of current equipment. PLAN: APAP 5-15 cm h2O New interface of patients choice. Follow up 30-90 days PAP SETUP Expected benefits of treatment include improved sleep quality, daytime alertness, reduction in risk of falling asleep during the day, and in some cases reduction in cardiovascular ris k. We will call you for a visit about 2 weeks after you receive the PAP, to meet with my sleep technicians to review your progress. I will see you about 2-4 weeks after that. Call us if you have any problems before your visit. We don't want you to struggle to use t he device against a problem that can be fixed. PLEASE BRING YOUR PAP DEVICE TO THE SLEEP CL INIC AT FOLLOW UP VISITS, so that we can make any necessary adjustments to it. Use of t he PAP at least 4 hrs per night on at least nights is often defined as the "minimum" a cceptable level of use. 7-8 hrs of use per night is optimal. Drowsiness and Driving For all drivers to remember: Avoid driving while sleepy. A sleep disorder, inadequate sl eep, medications side effects, and time of day are some of the factors that can result in sl eepiness that can impair ability to drive and operate dangerous equipment. This can result in errors that can cause injury and . Recognition of sleepiness, and appropriate resp onses are important in managing this issue. Respond to the early warning signs of drowsiness (eg daydreaming, not blinking, "zoning ou t", eyes unfocussing etc). helmet coverer and rest/nap/consume caffeine and only resume driving if you are certain you are alert. If you are experiencing sudden unpredictable sleepiness that you cannot respond to safely, then do not drive. Drivers who fall asleep can be held liable for harm to others. Do not hesitate to contact myself or a health care practitioner to help diagnose and treat excessive sleepiness. documented in this encounter Progress Notes Garrett Yen MD - 06/30/2015 2:23 PM PDTFormatting of this note might be different fro m the original. [facility] Patient Visit on 06/30/2015 with GARRETT YEN MD PCP is No Pcp Per PATIENT Chief Complaint: Chief Complaint Patient presents with THONY - obstructive Sleep Apnea History of present illness Shankar Duffy is a 45 y.o. male who comes in follow up of of his mild THONY diagnosed in 2007. He continues with his original machine and older nasal mask (it is 3 years old). He has been awakening at night with mask leaks and snoring and snorting. He finds he is m ore tired during the day. 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 No MVA or close calls due to sleepiness or inattention. If he doesn't use the PAP he awakens with a very bad pain in the throat. Review of Systems ROS Problem List Patient Active Problem List Diagnosis THONY (obstructive sleep apnea) Current Medications Current Outpatient Prescriptions Medication Sig azelastine 137 mcg (0.1 %) nasal aerosol,spray gemfibrozil 600 mg oral tablet VENTOLIN HFA 90 mcg/actuation inhalation HFA aerosol inhaler No current facility-administered medications for this visit. Past Medical History: History reviewed. No pertinent past medical history. History reviewed. No pertinent past surgical history. Vitals Filed Vitals: 06/30/2015 2:39 PM Height: 1.803 m (5' 11") Weight: 99.791 kg (220 lb) BP: 126/84 Pulse: 72 SpO2: 96% BMI: 30.7 kg/(m^2)Estimated body mass index is 30.7 kg/(m^2) as calculated from the follow ing: Height as of this encounter: 1.803 m (5' 11"). Weight as of this encounter: 99.791 kg (220 lb). Physical Exam Physical Exam HENT: NOSE: external: normal Turbinates: right inf turbinate very enlarged Mucosa: normal color Septum: normal OROPHARYNX: Lips: normal Tongue: normal Mucosa: normal Uvula: normal Soft palate: Normal. Tonsils non obstructive Cardiovascular: Normal rate, regular rhythm and normal heart sounds. Pulmonary/Chest: Effort normal and breath sounds normal. Psychiatric: He has a normal mood and affect. His behavior is normal. Judgment and thought content normal. Assessment and Plan 1. THONY (obstructive sleep apnea) Need for new PAP device and interface due to obsolescence of current equipment. PLAN: APAP 5-15 cm h2O New interface of patients choice. Follow up 30-90 days PAP SETUP Expected benefits of treatment include improved sleep quality, daytime alertness, reduction in risk of falling asleep during the day, and in some cases reduction in cardiovascular ris k. We will call you for a visit about 2 weeks after you receive the PAP, to meet with my sleep technicians to review your progress. I will see you about 2-4 weeks after that. Call us if you have any problems before your visit. We don't want you to struggle to use t he device against a problem that can be fixed. PLEASE BRING YOUR PAP DEVICE TO THE SLEEP CL INIC AT FOLLOW UP VISITS, so that we can make any necessary adjustments to it. Use of t he PAP at least 4 hrs per night on at least nights is often defined as the "minimum" a cceptable level of use. 7-8 hrs of use per night is optimal. Drowsiness and Driving For all drivers to remember: Avoid driving while sleepy. A sleep disorder, inadequate sl eep, medications side effects, and time of day are some of the factors that can result in sl eepiness that can impair ability to drive and operate dangerous equipment. This can result in errors that can cause injury and . Recognition of sleepiness, and appropriate resp onses are important in managing this issue. Respond to the early warning signs of drowsiness (eg daydreaming, not blinking, "zoning ou t", eyes unfocussing etc). helmet coverer and rest/nap/consume caffeine and only resume driving if you are certain you are alert. If you are experiencing sudden unpredictable sleepiness that you cannot respond to safely, then do not drive. Drivers who fall asleep can be held liable for harm to others. Do not hesitate to contact myself or a health care practitioner to help diagnose and treat excessive sleepiness. Return in about 3 months (around 09/29/2015). documented in this en counter Plan of Treatment Not on filedocumented as of this encounter Visit Diagnoses + + | Diagnosis | + + | THONY (obstructive sleep apnea) - Primary Obstructive sleep apnea (adult) (pediatric) | + + documented in this encounter
--- OUTSIDE RECORDS SUMMARY | ~2019-11-02 | XMS | Encounter Summary ---
Demographics + + + | Address | [facility] [address] | | | [place] [address] | + + + | Home Phone | | + + + | Preferred Language | Unknown | + + + | Marital Status | | + + + | Judaism Affiliation | Unknown | + + + | Race | Unknown | + + + | Ethnic Group | or | + + + Author + + + | Author | [facility] | | | and [place] | + + + | Organization | [facility] | | | [...] Team Providers + +------+ + | Care Cell Lead Name | Role | Phone | + +------+ + | Unknown, Doctor | PCP | | + +------+ + Reason for Visit + + + | Reason | Comments | + + + | Follow-up | Left Shoulder | + + + [...] | Surgery | Unspecified | Ortiz | [address] | | | | | rotator | MD Riley | [address] | | | | | cuff tear or | [address] | [place], [place] | | | | | rupture of | [address] | [address] | | | | | left | [address] | Phone: | | | | | shoulder, | [place], | [phone] | | | | | not | [place] [address] | Fax: | | | | | specified as | Phone: | [phone] | | | | | traumatic | [phone] | | | | | | Left | Fax: | | | | | | Shoulder | [phone] | | | | | | (urgent care | | | | | | | referring) | | | + +--------+ + + + + Encounter Details +--------+---------+ + + + | Date | Type | Department | Care Team | Description | +--------+---------+ + + + | 06/24/ | Office | [facility] | Pradip Servin, | S/P shoulder surgery | | 2020 | Visit | [facility] | MD [address] | (Primary Dx) | | | | MEDICINE JAIME | [place] [address] | | | | | [address] | [phone] | | | | | [place], [place] | | | | | | [address] | | | | | | [phone] | | | +--------+---------+ + + + [...] + + + | Blood Pressure | - | - | | + + + + + | Pulse | 68 | 06/25/2019 2:42 PM | | | | | PDT | | + + + + + | Temperature | - | - | | + + + + + | Respiratory Rate | - | - | | + + + + + | Oxygen Saturation | 98% | 06/25/2019 2:42 PM | | | | | PDT | | + + + + + | Inhaled Oxygen | - | - | | | Concentration | | | | + + + + + | Weight | 99.6 kg (219 lb 9.6 | 06/25/2019 2:42 PM | | | | oz) | PDT | | + + + + + | Height | 180.3 cm (5' 11") | 06/25/2019 2:42 PM | | | | | PDT | | + + + + + | Body Mass Index | 30.63 | 06/25/2019 2:42 PM | | | | | PDT | | + + + + + documented in this encounter Progress Notes Pradip Servin MD - 06/25/2019 2:30 PM PDTFormatting of this note might be different roddy wolf the original. [facility] Service: Orthopedic Surgery Clinic Note Procedure: 1. Left shoulder arthroscopic debridement, extensive 2.Left shoulder arthroscopic subacromial decompression 3.Left open biceps tenodesis Date of Procedure: 02/16/2019 History: Shankar Duffy is a 49 y.o. male presenting for follow-up for his left shoulder. He states that he is doing well. He has been doing the exercises on his shoulder. He states h e has only some anterior soreness and pain particularly with repetitive activity. He still feels some weakness with heavy lifting. He denies numbness or tingling. Review of Systems: Review of Systems All other systems reviewed and are negative. OBJECTIVE Vital Signs: Vitals: 06/25/19 1442 Pulse: 68 PainSc: 2 PainLoc: Shoulder Exam: Left shoulder: Skin is intact without erythema, ecchymosis or edema. No tenderness to palpation Range of motion, forward flexion 180 Abduction 165 Internal rotation T10 External rotation 60 Empty can test: 5/5 strength without pain External Rotation against resistance: 5/5 strength without pain Belly Press: 5/5 strength without pain Speeds Test: 5/5 strength without pain Del Real's test: 5/5 strength without pain Negative impingement Negative apprehension test Palpable Radial pulse Sensation intact to light touch. Xray: @RISRESULT@ ASSESSMENT Left shoulder status post surgery PLAN I discussed with Shankar that he is progressing very well. He is very happy with his progress and continues to work on strengthening. We will allow him to return back to work with rest rictions limiting heavy lifting. We will plan to see him back in 2 months at which time we will likely allow him to return back to full duty and close his L&I claim if he is doing wel l. All questions were answered and he understood this plan. An APF was provided today. Pradip Servin MD has created this entry using Inside Secure Voice Recognition software a [employer]. The entry has been reviewed and there may still exist sound alike word err ors. documented in this encounter Plan of Treatment +--------+---------+ + + + | Date | Type | Specialty | Care Team | Description | +--------+---------+ + + + | 11/30/ | Office | Orthopedic Surgery | Pradip Servin, | | | 2019 | Visit | | [address] | | | | | | [place] [address] | | | | | | [phone] | | | | | | | | +--------+---------+ + + + documented as of this encounter Visit Diagnoses + + | Diagnosis | + + | S/P shoulder surgery - Primary Other postprocedural status | + + documented in this encounter
--- OUTSIDE RECORDS SUMMARY | ~2019-11-02 | XMS | Encounter Summary ---
Demographics + + + | Address | [facility] [address] | | | [place] [address] | + + + | Home Phone | | + + + | Preferred Language | Unknown | + + + | Marital Status | | + + + | Mandaeism Affiliation | Unknown | + + + | Race | Unknown | + + + | Ethnic Group | or | + + + Author + + + | Author | [facility] | | | and [place] | + + + | Organization | [facility] | | | [...] Team Providers + +------+ + | Care Product Designer Name | Role | Phone | + [...] | Surgery | Unspecified | Ort[facility] | [address] | | | | | rotator | MD Riley | [address] | | | | | cuff tear or | [address] | [place], [place] | | | | | rupture of | [address] | [address] | | | | | left | [address] | Phone: | | | | | shoulder, | [place], | [phone] | | | | | not | [place] [address] | Fax: | | | | | specified as | Phone: | [phone] | | | | | traumatic | [phone] | | | | | | Left | Fax: | | | | | | Shoulder | [phone] | | | | | | (urgent care | | | | | | | referring) | | | + +--------+ + + + + Encounter Details +--------+---------+ + + + | Date | Type | Department | Care Team | Description | +--------+---------+ + + + | 08/24/ | Office | [facility] | Pradip Servin, | S/P shoulder surgery | | 2020 | Visit | [facility] | MD [address] | (Primary Dx) | | | | MEDICINE JAIME | [place] [address] | | | | | [address] | [phone] | | | | | [place], [place] | | | | | | [address] | | | | | | [phone] | | | +--------+---------+ + + + [...] + + + + | Pulse | 60 | 08/25/2019 11:44 AM | | | | | PDT | | + + + + + | Temperature | 37 C (98.6 F) | 08/25/2019 11:44 AM | | | | | PDT | | + + + + + | Respiratory Rate | - | - | | + + + + + | Oxygen Saturation | 99% | 08/25/2019 11:44 AM | | | | | PDT | | + + + + + | Inhaled Oxygen | - | - | | | Concentration | | | | + + + + + | Weight | 98.2 kg (216 lb 6.4 | 08/25/2019 11:44 AM | | | | oz) | PDT | | + + + + + | Height | 180.3 cm (5' 11") | 08/25/2019 11:44 AM | | | | | PDT | | + + + + + | Body Mass Index | 30.18 | 08/25/2019 11:44 AM | | | | | PDT | | + + + + + documented in this encounter Progress Notes Pradip Servin MD - 08/25/2019 11:15 AM PDTFormatting of this note might be different fro m the original. [facility] Service: Orthopedic Surgery Clinic Note Procedure: 1. Left shoulder arthroscopic debridement, extensive 2.Left shoulder arthroscopic subacromial decompression 3.Left open biceps tenodesis Date of Procedure:02/16/2019 History: Shankar Duffy is a 49 y.o. male presenting for follow-up for his left shoulder. He states his shoulder is feeling very well and has no complaints. He has occasional soreness with prolonged activity otherwise he states he is doing very well. He is continued to do th e exercises on his own. He denies numbness or tingling Review of Systems: Review of Systems All other systems reviewed and are negative. OBJECTIVE Vital Signs: Vitals: 08/25/19 1144 BP: 140/60 Pulse: 60 Temp: 37 C (98.6 F) PainSc: 0 - No pain PainLoc: Shoulder Exam: Left shoulder: Skin is intact without erythema, ecchymosis or edema. no tenderness to palpation Range of motion, forward flexion 180 Abduction 165 Empty can test: 5/5 strength without pain External Rotation against resistance: 5/5 strength without pain Belly Press: 5/5 strength without pain Palpable Radial pulse Sensation intact to light touch. ASSESSMENT Status post left shoulder surgery PLAN I discussed with the patient that they are continuing to progress appropriately. I would r ecommend that they continue advancing their activity per the protocol in a slow, stepwise, p rogressive fashion. They understood the details of this plan and all questions were answere d. We will see them back in 6 weeks. An APF was provided. Pradip Servin MD has created this entry using Fugoo Voice Recognition software a [employer]. The entry has been reviewed and there may still exist sound alike word err ors. documented in this encounter Plan of Treatment +--------+---------+ + + + | Date | Type | Specialty | Care Team | Description | +--------+---------+ + + + | 11/30/ | Office | Orthopedic Surgery | Pradip Servin, | | | 2019 | Visit | | [address] | | | | | | [place] [address] | | | | | | [phone] | | | | | | | | +--------+---------+ + + + documented as of this encounter Visit Diagnoses + + | Diagnosis | + + | S/P shoulder surgery - Primary Other postprocedural status | + + documented in this encounter
--- OUTSIDE RECORDS SUMMARY | ~2019-11-02 | XMS | Encounter Summary ---
Demographics + + + | Address | [address] | | | [place] [address] | + + + | Home Phone | | + + + | Preferred Language | Unknown | + + + | Marital Status | | + + + | Hindu Affiliation | CAT | + + + | Race | Unknown | + + + | Ethnic Group | or | + + + Author + + + | Author | [facility] | + + + | Organization | [facility] | + + + | Address | Unknown | + + + | Phone | Unavailable | + + + Support + + + + + | Name | Relationship | Address | Phone | + + + + + | Bernadette Chino | ECON | [address] | | | [place] | | [place] [address] | | + + + + + Care Team Providers + +------+ + | Care Plastics Tooling Engineer Name | Role | Phone | + +------+ + | Sherley MoraP | PCP | | + +------+ + Encounter Details +--------+ + + + + | Date | Type | Department | Care Team | Description | +--------+ + + + + | 07/05/ | Document-Sc | Sleep Medicine at | [place], | | | 2017 | anned | [facility] [address] | | | | | [address] [place] [address] | [place] | | | | | [place] | [address] | | | | | [address] | [phone] | | | | | [phone] | | | +--------+ + + + [...]
--- OUTSIDE RECORDS SUMMARY | ~2019-11-02 | XMS | Encounter Summary ---
Demographics + + + | Address | [address] | | | [place] [address] | + + + | Home Phone | | + + + | Preferred Language | Unknown | + + + | Marital Status | | + + + | Spiritism Affiliation | CAT | + + + | Race | Unknown | + + + | Ethnic Group | or | + + + Author + + + | Author | [facility] | + + + | Organization | [facility] | + + + | Address | Unknown | + + + | Phone | Unavailable | + + + Support + + + + + | Name | Relationship | Address | Phone | + + + + + | Bernadette Chino | ECON | [address] | | | [place] | | [place] [address] | | + + + + + Care Team Providers + +------+ + | Care Pulp Plant Supervisor Name | Role | Phone | + +------+ + | Mayda FloresP | PCP | | + +------+ + Encounter Details +--------+ + + + + | Date | Type | Department | Care Team | Description | +--------+ + + + + | 07/25/ | Document-Sc | [facility] | Garrett Leong MD | | | 2017 | anned | [facility] [address] | | | | | [address] | [address] [place] | | | | | [place] | [address] | | | | | [address] | [phone] | | | | | [phone] | | | +--------+ + + + [...]
--- OUTSIDE RECORDS SUMMARY | ~2019-11-02 | XMS | Encounter Summary ---
Demographics + + + | Address | [address] | | | [place] [address] | + + + | Home Phone | | + + + | Preferred Language | Unknown | + + + | Marital Status | | + + + | Adventism Affiliation | CAT | + + + | Race | Unknown | + + + | Ethnic Group | or | + + + Author + + + | Author | [facility] | + + + | Organization | [facility] | + + + | Address | Unknown | + + + | Phone | Unavailable | + + + Support + + + + + | Name | Relationship | Address | Phone | + + + + + | Bernadette Chino | ECON | [address] | | | [place] | | [place] [address] | | + + + + + Care Team Providers + +------+ + | Care Customer Account Administrator Name | Role | Phone | + [...] Closed | | Physical | Diagnoses | Donnie | Rasta | | | | Therapy | Lumbar | Sravanthi Collazo MD | Le PT | | | | | radiculopath | [address] | | | | | y | St THE | [address] | | | | | Procedures | [place] | St | | | | | PHYSICAL | [address] | [place] | | | | | THERAPY | Phone: | [phone] | | | | | REFERRAL | [phone] | Phone: | | | | | | Fax: | [phone] | | | | | | [phone] | Fax: | | | | | | | [phone] | +--------+--------+ + + + + Diagnostic Testing (Routine) +--------+--------+ + + + [...] | | | radiculopath | [address] | Radiology | | | | | y | St [facility] | [address] | | | | | Procedures | [place] | St [facility] | | | | | MRI SPINE | [address] | [place] | | | | | LUMBAR WO | Phone: | [phone] | | | | | CONTRAST | [phone] | Phone: | | | | | | Fax: | [phone] | | | | | | [phone] | Fax: | | | | | | | [phone] | +--------+--------+ + + + + Reason for Visit + + + | Reason | Comments | + + + | Lumbar pain | Pt referred for lumbar pain with right side sciatica | + + + Consultation (Routine) +--------+--------+ + + + + | Status | Reason | Specialty | Diagnoses / | Referred By | Referred To | | | | | Procedures | Contact | Contact | +--------+--------+ + + + + | Closed | | Neurology | Diagnoses | [facility] | [facility] | | | | | Lumbago | Epic Dept | [facility] | | | | | with | | [address] | | | | | sciatica, | | St [facility] | | | | | right side | | [place] | | | | | | | [address] | | | | | | | Phone: | | | | | | | [phone] | | | | | | | Fax: | | | | | | | [phone] | +--------+--------+ + + + + Encounter Details +--------+---------+ + + + | Date | Type | Department | Care Team | Description | +--------+---------+ + + + | 04/04/ | Office | [facility] | Sravanthi Krishna MD | Lumbar radiculopathy | | 2019 | Visit | [facility] | [address] | (Primary Dx) | | | | Professional Center | [place] | | | | | [address] | [address] | | | | | [place] | [phone] | | | | | [address] | | | | | | [phone] | | | +--------+---------+ + + + [...] + + + | Blood Pressure | 130/80 | 04/04/2018 3:50 PM | | | | | PST | | + + + + + | Pulse | 72 | 04/04/2018 3:50 PM | | | | | PST [...] + + + + | Weight | 100.2 kg (221 lb) | 04/04/2018 3:50 PM | | | | | PST | | + + + + + | Height | 180.3 cm (5' 11") | 04/04/2018 3:50 PM | | | | | PST | | + + + + + | Body Mass Index | 30.82 | 04/04/2018 3:50 PM | | | | | PST | | + + + + + documented in this encounter Progress Notes Kary Davis MA - 04/04/2018 4:15 PM PSTReview of Systems Constitution: Negative for fever, weakness, malaise/fatigue, night sweats and weight loss. HENT: Positive for ear pain. Negative for congestion, hearing loss and tinnitus. Eyes: Positive for pain and photophobia. Negative for blurred vision, double vision, vision loss in left eye and vision loss in right eye. Cardiovascular: Negative for chest pain, dyspnea on exertion and syncope. Respiratory: Positive for snoring. Negative for cough, shortness of breath and wheezing. Hematologic/Lymphatic: Does not bruise/bleed easily. Musculoskeletal: Positive for back pain, joint pain, joint swelling and myalgias. Negative for muscle cramps and muscle weakness. Gastrointestinal: Negative for bloating, abdominal pain, bowel incontinence, constipation, diarrhea, dysphagia, nausea and vomiting. Genitourinary: Negative for bladder incontinence, decreased libido, frequency, hematuria, h esitancy and incomplete emptying. Neurological: Negative for difficulty with concentration, disturbances in coordination, diz ziness, focal weakness, headaches, numbness and tremors. Psychiatric/Behavioral: Negative for depression, hallucinations, memory loss and suicidal i adrianna. The patient is not nervous/anxious. ranSravanthi vega MD - 04/04/2018 4:15 PM PST Neurologic Consultation Date: 04/04/2018 Patient: Shankar Abdi Date of : 1970 Referring Physician: No ref. provider found Chief Complaint: Chief Complaint Patient presents with Lumbar pain Pt referred for lumbar pain with right side sciatica History of Present Illness: He has over 3 years of pain in right low back, down the back of the leg to the toes. It is worse in the last year, now constant. Gets worse after work or after standing for a short ti me, keeps him awake at night. 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 Left leg is fine. No weakness. Right leg feels numb when the pain is bad. Bowel and bladder function are fine. He has not done PT . Not taking any meds. He had a lumbar MRI in 2007, was having low back pain then, it resolv ed with massage, it was not as severe and not involving the leg then. He has mild diabetes, controlled with diet. ROS: Refer to ROS documented by foreign Past Medical History: Diagnosis Date High cholesterol Sleep apnea Past Surgical History Procedure Laterality Date Sinus surgery Knee arthroscopy Right Ear drum repair Right Current Outpatient Prescriptions Medication Sig ERGOCALCIFEROL (VITAMIN D2) (VITAMIN D ORAL) Take by mouth. Fish Oil-Judsonia-3 Fatty Acids (FISH OIL) 340-1,000 mg oral capsule Take by mouth. gabapentin 100 mg oral capsule 1-3 po qhs for nerve pain gemfibrozil 600 mg oral tablet Take 600 mg by mouth two times daily. No current facility-administered medications for this visit. Allergies: Patient has no known allergies. Vital Signs: BP 130/80 | Pulse 72 | Ht 1.803 m (5' 11") | Wt 100.2 kg (221 lb) | BMI 30.82 kg/(m^2) Social History: Social History Social History Marital status: Spouse name: N/A Number of children: N/A Years of education: ged Occupational History Not on file. Social History Main Topics Smoking status: Never Smoker Smokeless tobacco: Never Used Alcohol use No Drug use: No Sexual activity: Not on file Other Topics Concern Caffeine Concern Yes Social History Narrative No narrative on file Family History: Family History Problem Relation Age of Onset Diabetes Mother Stroke Mother Cancer Father - Family history discussed with patient, non-contributory. Neurologic Exam General Appearance: alert and well-appearing, in no acute distress Cardiovascular System: heart normal rate and rhythm to auscultation. Normal pulse amplit ude radial left and right. Normal auscultation of carotids bilaterally. Eyes: Optic discs visualized and normal bilaterally. Pupils equal, round and reactive to l ight bilaterally. Extraocular Movements full bilaterally, without nystagmus. Visual Ambriz full to confrontation bilaterally. Mental status: Patient is alert and oriented to person, place, time, and situation. The pa tiebud is able to relate a clear and concise medical history without evidence of aphasia or d ysarthria. Fund of knowledge, general concentration, and remote and recent memory appear to be within normal limits. Cranial nerves II-XII: Facial sensation intact bilaterally. Facial movements are full and symmetric. Hearing intact to finger rub bilaterally. Palate raises symmetrically. Tongue is midline. SCM 5/5 bilaterally. Shoulder shrug is full bilaterally. Motor exam: There is no pronator drift. Bulk and tone normal in all extremities. Strength 5 /5 throughout upper and lower extremities bilaterally except 4 in right hip flexion due to p ain. SLR positive right at 45 degrees, negative left. Deep tendon responses: Symmetric at 2/4 in the biceps, triceps, brachioradialis bilaterally . Patellar 2+ left, 1+ right, 2+ left ankle, 1+ right ankle. Plantar responses down-going bi laterally. Kohli negative bilaterally. Sensory exam: Sensation intact to light touch and vibration in all 4 extremities. Pinprick decreased lateral right foot, otherwise intact. Coordination: Rapid alternating movements intact bilaterally. Fine finger movements intact bilaterally. Gait: Casual gait is normal. Tandem gait intact. Heel and toe walking intact. Romberg nega tive. Arm swing normal bilaterally. PCP note 01/26 = right low back pain and sciatica; left shoulder pain, to ortho; URI, abx; DM, HLD, vit D deficiency, THONY Studies: Imagin MRI Lumbar spine w/o = mod ddd L4-S1, mild left L4-5, bilat mild L5-S1 Assessment/Plan: He has right lumbar radiculopathy, with sensory loss in lateral foot, reduced patellar and ankle reflexes in that leg. It has been going on for a few years, worse in the last year, ke eping him awake and making it hard to work. No signs of plexopathy, peripheral neuropathy, c auda equina syndrome, claudication, myelopathy. Will refer for PT. Will get MRI lumbar spine , depending on those results will consider consults with surgery or referral for epidural st eroid injection. Will order low dose of gabapentin to try at night for pain. He will f/u wit h PCP and I will have him return if needed after his MRI. MD Sravanthi Kapadia MD documented in this enco unter Plan of Treatment Not on filedocumented as of this encounter Results MRI SPINE LUMBAR WO CONTRAST (04/12/2018 10:11 AM PST) + + | Specimen | + + | | + + + + + | Narrative | Performed At | + + + | [address] [place] [address] | [facility] | | [place] [address] | DEPARTMENT | | [phone] Name: SHANKAR MANN Phys: | RADIOLOGY | | SRAVANTHI KRISHNA : 1970 Sex: M CSN: | | | [id number] MR# [id number] Exam Date: 04/12/2018 | | | EXAM: MRI SPINE LUMBAR WO CONTRAST [id number] CLINICAL HISTORY: Low | | | back [...] | | | Transcribed Date/Time: 04/12/2018 17:05 Land Degradation Analyst: FLUENCY | | | | | + + + + + | Procedure Note | + + | Interface, Radiology Results - 04/12/2018 5:10 PM PST [address] | | [place] [address] | | Name: DISLA ABDISHANKAR Phys: SRAVANTHI KRISHNA : 1970 Sex: M | | CSN: [id number] MR# [id number] Exam Date: 04/12/2018 EXAM:MRI SPINE LUMBAR WO | | CONTRAST [id number] CLINICAL HISTORY:Low back pain. Right lumbar radiculopathy. [...] | | |Transcribed Date/Time: 04/12/2018 17:05 | |Land Degradation Analyst: FLUENCY | | | | | | [...] Diagnosis | + + | Lumbar radiculopathy - Primary Thoracic or lumbosacral neuritis or radiculitis, | | unspecified | + + documented in this encounter
--- OUTSIDE RECORDS SUMMARY | ~2019-11-02 | XMS | Encounter Summary ---
Demographics + + + | Address | [address] | | | [place] [address] | + + + | Home Phone | | + + + | Preferred Language | Unknown | + + + | Marital Status | | + + + | Congregational Affiliation | CAT | + + + | Race | Unknown | + + + | Ethnic Group | or | + + + Author + + + | Author | [facility] | + + + | Organization | [facility] | + + + | Address | Unknown | + + + | Phone | Unavailable | + + + Support + + + + + | Name | Relationship | Address | Phone | + + + + + | Bernadette Chino | ECON | [address] | | | [place] | | [place] [address] | | + + + + + Care Team Providers + +------+ + | Care Production Team Advisor Name | Role | Phone | + +------+ + | Sherley MoraP | PCP | | + +------+ + Encounter Details +--------+ + + + + | Date | Type | Department | Care Team | Description | +--------+ + + + + | 03/02/ | Office | [facility] [address] | Garrett Castle, | Progress Note | | 2007 | Visit-Trans | [address] | MD [facility] Roberts | | | | wallace | [place] | [place] | | | | | [address] | [address] | | | | | | [phone] | | | | | | | | +--------+ + + + + Social History + +-------+ +--------+------+ | Tobacco Use | Types | Packs/Day | Years | Date | | | | | Used | | + +-------+ +--------+------+ | Never Assessed | | | | | + +-------+ +--------+------+ + + + | Sex Assigned at | Date Recorded | | | | + + + | Not on file | | + + + documented as of this encounter Progress Notes Garrett Castle - 04/13/2008 9:22 AM [facility] REPORT [address] [place] [id number] OVERNIGHT POLYSOMNOGRAM DATE OF SERVICE: 03/02/2008 REFERRING PHYSICIAN: Cj Zuñiga REASON FOR EVALUATION: Suspected obstructive sleep apnea. Please see sleep history and physical for full details. SLEEP ARCHITECTURE: The patient slept for 349 minutes for a mildly reduced sleep efficiency of 84%. The sleep onset latency was quite rapid at 1-1/2 minutes. REM onset latency was normal. Sleep stage distribution was abnormal for an excessive of stage NI sleep compared to normal and a relative lack of stage NIII and decreased amount of REM compared to normal. RESPIRATORY SUMMARY: The patient displayed positional obstructive sleep apnea. The sleep apnea was moderate in the supine position, where the apnea-hypopnea index was 23 per hour and mild non-supine at 6.7 per hour. The overall apnea-hypopnea index was 13.4. There were some additional respiratory event-related arousals for a total respiratory disturbance index of 17 per hour. Oxygen desaturations were mild to low of 82%, but fairly rare below 90%. There was moderate attributable sleep disruption to the obstructive breathing. MOVEMENT SUMMARY: No significant periodic limb movements. No abnormal sleep behaviors. AROUSAL SUMMARY: The overall arousal index was 20 per hour, which is within normal limits overall but with a disproportionate excess due to respiratory-related arousals. PHYSIOLOGIC PARAMETERS: Baseline oxygen saturation 96%. EKG rhythm sinus. No arrhythmias noted. No EEG abnormalities noted. INTERPRETATION: 1. Mild overall obstructive sleep apnea, moderate in the supine position, mild on the side, with mild oxygen desaturations and moderate associated sleep disruption. 2. Mild sleep architecture distortion. CLINICAL CORRELATION: Sleep apnea of this severity can cause daytime sleepiness in susceptible individuals and with more sleep apnea experienced with the patient sleeping supine. Included therapies that may be helpful include CPAP, an oral appliance or positional therapy. Please see sleep clinic follow-up notes for application of these results to the patient's clinical case. JUSTIN DISLA [id number] ADMIT DATE: AXIS A DIAGNOSIS: Obstructive sleep apnea syndrome 327.23. PC/MedQ /[id number] cc: Cj Zuñiga Electronically Signed MD NIGHAT Vu LUIS L [id number] ADMIT DATE: documented in th is encounter Plan of Treatment Not on filedocumented as of this encounter Visit Diagnoses Not on filedocumented in this encounter"
--- OUTSIDE RECORDS SUMMARY | ~2019-11-02 | XMS | Encounter Summary ---
Demographics + + + | Address | [address] | | | [place] [address] | + + + | Home Phone | | + + + | Preferred Language | Unknown | + + + | Marital Status | | + + + | Advent Affiliation | CAT | + + + | Race | Unknown | + + + | Ethnic Group | or | + + + Author + + + | Author | [facility] | + + + | Organization | [facility] | + + + | Address | Unknown | + + + | Phone | Unavailable | + + + Support + + + + + | Name | Relationship | Address | Phone | + + + + + | Bernadette Chino | ECON | [address] | | | [place] | | [place] [address] | | + + + + + Care Team Providers + +------+ + | Care Piped Pocket Machine Operator Name | Role | Phone | + +------+ + | Sherley MoraP | PCP | | + +------+ + Encounter Details +--------+ + + + + | Date | Type | Department | Care Team | Description | +--------+ + + + + | 07/26/ | Office | [facility] [address] | Garrett Castle, | Progress Note | | 2005 | Visit-Trans | [address] | MD Henry Roberts | | | | [place]ace | [place] | [place] | | | | | [address] | [address] | | | | | | [phone] | | | | | | | [...] this encounter Progress Notes Garrett Castle - 07/28/2005 3:35 PM [facility] [address] [facility] [place] [address] JUSTIN DISLA DATE OF SERVICE: 07/26/2005 REFERRING PHYSICIAN: PRIMARY CARE PHYSICIAN: ENOC López REASON FOR CONSULTATION: The patient is here for evaluation of daytime sleepiness. 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 This has been getting worse over the past 5 years and has paralleled an increase in his snoring. He thinks also his symptoms may be worse when he has allergies. He did have some surgery on his sinuses, but improved his symptoms somewhat, but left him with decreased ability to breathe out of his right nostril. His tells him the snoring is getting worse and worse. He is to the point where he will awaken himself snoring frequently. He wakes his up. She will poke him to get him to roll over on to his side and then go back to sleep. He goes to bed at 9 p.m. and falls asleep quickly. He awakens a few times per night, but returns to sleep quickly. He is not sure exactly what wakes him up, but he wakes up finally by about 5 to 7 a.m. He has no sleep hallucinations. No sleep walking, sleep talking or restless legs. He does have some mild sore throat in the morning, headache and occasional gastroesophageal reflux. He did have nightmares for about 10 years, but over the past 2 years he has had very few. He has occasional sleep paralysis if he sleeps very late. He uses no sleep aids. He has no symptoms of daytime cataplexy. SOCIAL HISTORY: He is . He has 2 children. He uses alcohol rarely. No tobacco. Rare coffee. PAST MEDICAL HISTORY: No difficulty with hypertension, cardiovascular or cerebrovascular disease. PSYCHIATRIC HISTORY: Negative for anxiety or depression. MEDICATIONS: None. PHYSICAL EXAMINATION: VITAL SIGNS: Height 5 feet 11 inches tall. Weight 190. Blood pressure 100/60. Pulse 67. O2 saturation 97%. HEENT: Deviated septum to the right, moderate. Normal ala, turbinates and mucosa. Oropharynx shows normal soft palate, hard palate, uvula and tonsillar pillars. The tonsils are relatively small to moderate size. LUNGS: Clear to auscultation. HEART: Regular rate and rhythm. No murmur, rub or gallop. EXTREMITIES: No edema. 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 Of note, he specifically denies any symptomatic sleepiness while driving a car, including hitting the median, drifting out of his lincoln or hitting the rumble strips. High probability of obstructive sleep apnea, given the history of loud snoring and pauses in breathing. This is unlikely to be narcolepsy, given the absence of typical symptoms, or idiopathic hypersomnia. The patient is completely self pay and would have considerable difficulty proceeding with an overnight sleep study, much less subsequent possible CPAP titration or CPAP usage. Because of the high pretest probability of obstructive sleep apnea, I proposed that we try him on an auto-set CPAP machine for 1 week, to determine optimal pressure, and then consider giving him a reconditioned machine through the manufacture. Should his auto-set show a sufficiently high apnea-hypopnea index, we would not treat him empirically for a few weeks to see if he has improvement in his symptoms. If he improves symptomatically empirically, we will continue with the current therapy. If he did not improve symptomatically, then we would have no recourse but to proceed with an overnight polysomnogram to determine if other possible sleep disorders are present. He was very appreciative of this course of action. We will proceed as such. I will call him when my auto-set CPAP machine becomes available for a 1 to 2-week trial. [employer] /[id number] cc: Cj López 07/26/05 07/28/05 MWS Electronically Signed Garrett Castle MD DISLAJUANJUSTIN [id number] ADMIT DATE: documented in th is encounter Plan of Treatment Not on filedocumented as of this encounter Visit Diagnoses Not on filedocumented in this encounter"
--- OUTSIDE RECORDS SUMMARY | ~2019-11-02 | XMS | Encounter Summary ---
Demographics + + + | Address | [facility] [address] | | | [place] [address] | + + + | Home Phone | | + + + | Preferred Language | Unknown | + + + | Marital Status | | + + + | Scientologist Affiliation | Unknown | + + + | Race | Unknown | + + + | Ethnic Group | or | + + + Author + + + | Author | [facility] | | | and [place] | + + + | Organization | [facility] | | | [...] Team Providers + +------+ + | Care Ethylbenzene Converter Helper Name | Role | Phone | + +------+ + | Unknown, Doctor | PCP | | + +------+ + Encounter Details +--------+ + + + + | Date | Type | Department | Care Team | Description | +--------+ + + + + | 02/16/ | Anesthesia | [facility] | Rishabh Sosa, | | | 2019 | Event | [facility] | MD [address] | | | | | JAIME ROMERO | [place] [address] | | | | | OP [address] | [phone] | | | | | [place] | | | | | | [address] | | | | | | [phone] | | | +--------+ + + + + Anesthesia Record + + + + + | Procedure Name | Responsible | Anesthesia Start | Anesthesia Stop Time | | | Anesthesiologist | Time | | + + + + + | REPAIR TENDON BICEPS | Rishabh Sosa MD | 02/16/19 1041 | 02/16/19 1211 | | PROXIMAL (Left | | | | | Shoulder) | | | | + + + + + +----+---+ + + | Da | T | Event | Comment | | te | i | | | | | m | | | | | e | | | +----+---+ + + | 12 | 1 | An Checkout | Pre-use anesthesia machine/equipment checkout. | | /0 | 0 | | | | 9/ | 4 | | | | 20 | 1 | | | | 19 | | | | +----+---+ + + | | 1 | An Start | Reassessment prior to anesthesia induction/procedure. | | | 0 | | | | | 4 | | | | | 1 | | | +----+---+ + + | | 1 | An | | | | 0 | Intubation | | | | 4 | | | | | 5 | | | +----+---+ + + | | 1 | Antibiotic | | | | 1 | Given | | | | 0 | | | | | 5 | | | +----+---+ + + | | 1 | [place] | | | | 2 | 43-degrees | | | | 0 | | | | | 7 | | | +----+---+ + + | | 1 | Extubation/ | | | | 2 | Airway LDA | | | | 0 | Removal | | | | 7 | | | +----+---+ + + | | 1 | An Stop | Patient handed off to recovery nurse. | | | 1 | | | | | 1 | | | +----+---+ + + +------+ | Meds | +------+ + +---------+ | Name | Total | + +---------+ | fentaNYL | 100 mcg | + +---------+ | lidocaine 2% | 40 mg | + +---------+ | propofol | 200 mg | + +---------+ | rocuronium | 25 mg | + +---------+ | succinylcholine | 150 mg | + +---------+ | dexamethasone | 8 mg | + +---------+ | ondansetron | 4 mg | + +---------+ | ceFAZolin in dextrose (ANCEF) | 2 g | | IVPB 2 g | | + +---------+ | ropivacaine (NAROPIN) 5 mg/mL | 30 mL | | (0.5%) injection 30 mL | | + +---------+ | midazolam (VERSED) 1 mg/mL IV | 2 mg | + +---------+ | lactated ringers (LR) infusion | 0 mL | + +---------+ +---------+ | Name | +---------+ | Insp O2 | +---------+ | Exp N2O | +---------+ | Exp SEV | +---------+ + + | No blood administrations on file. | + + +--------+ + + + | Type | Details | Placement | Removal | +--------+ + + + | Wound | 02/16/19; 1115; Incision; Left; | 02/16/19 1115 by | | | | shoulder | Tejas Estrada RN | | +--------+ + + + | Periph | 02/16/19; 0940; Right; Forearm; | 02/16/19 0940 by | 02/16/19 1318 by | | marisela | 22 gauge; 1; Inserted by A. | Stella Lindsay, | Lacy Melton, | | IV | GABRIEL Lindsay; 02/16/19; 1318 | RN | RN | +--------+ + + + | Airway | Placement Date: 02/16/19; | 02/16/19 1045 by | 02/16/19 1207 by | | | Placement Time: 1045 (created via | Rishabh Sosa MD | Rishabh Sosa MD | | | procedure documentation); Airway | | | | | Grade: 3; Successful Technique: | | | | | Mac; Laryngoscope Blade Size: 3; | | | | | Attempts: 1; Airway Type: | | | | | endotracheal; Size: 8; Other | | | | | Equipment: stylette; Removal | | | | | Date: 02/16/19; Removal Time: | | | | | 1207 | | | +--------+ + + + documented in this encounter Social History + +-------+ +--------+------+ | Tobacco [...] + + documented as of this encounter OR Notes Anesthesia Postprocedure Evaluation - Rishabh Sosa MD - 02/16/2019 12:57 PM PSTFormatt ing of this note might be different from the original. ANESTHESIA POSTANESTHESIA EVALUATION Shankar Duffy 48 y.o. male 1970 [id number] Procedure(s) REPAIR TENDON BICEPS PROXIMAL (Left Shoulder) ARTHROSCOPY SHOULDER (Left Shoulder) Cooperates? Yes Mental Status Performs simple tasks. Respiratory Satisfactory - Airway patent (self maintained). Cardiovascular Satisfactory - Blood pressure and heart rate acceptable Temperature Satisfactory Pain Satisfactory N/V Control Satisfactory Hydration Satisfactory - No signs of dehydration Vitals Value Taken Time Temp 36.2 C (97.1 F) 02/16/2019 12:10 PM Pulse 61 02/16/2019 12:54 PM Resp 25 02/16/2019 12:30 PM BP 141/91 02/16/2019 12:45 PM Arterial Line BP Arterial Line BP 2 SpO2 93 % 02/16/2019 12:54 PM Vitals shown include unvalidated device data. Electronically signed by Rishabh Sosa MD 02/16/2019 12:57 PM [facility] n[facility] thesia Procedure Notes - Rishabh Sosa MD - 02/16/2019 11:59 AM PSTAssociated Order(s): Nerve BlockPerineural Procedure Note 02/16/2019 10:33 AM Nerve block: interscalene-brachial plexus Laterality: left Continuous block with catheter: No Indication: acute pain management and postoperative analgesia Patient position: supine Preparation: chlorhexidine/isopropyl alcohol Introducer used: no Technique: ultrasound Needle: stimulating Needle size: 20 g Needle length: 4 in Depth of nerve/plexus: 3 cm Total volume of local anesthetic solution administered: 30 mL Attempts: 1 Ease of procedure: easy Medications Administered Midazolam (VERSED) 1 mg/mL IV, 2 mg Date/Time: 02/16/2019 10:36 AM Please see anesthesia record or flowsheet for vital sign documentation and see anesthesia r ecord or MAR for additional medication documentation. Performing provider: Rishabh Sosa MD Authorizing provider: Rishabh Sosa MD nesthesia Preproced ure Evaluation - Rishabh Sosa MD - 02/16/2019 11:17 AM PST ANESTHESIA PREANESTHESIA EVALUATION Shankar Duffy 48 y.o. male 1970 [id number] Procedure(s): LEFT SHOULDER ARTHROSCOPIC ROTATOR CUFF REPAIR, DEBRIDEMENT, SUBACROMIAL DECO MPRESSION (Left Shoulder) REPAIR TENDON BICEPS PROXIMAL (Left Shoulder) Medical,anesthesia, drug, allergy histories reviewed, NPO status verified. Review of Systems / Med History Anesthesia History (+) PONV. Gastrointestinal/Hepatic (+) hypercholesterolemia. Physical Exam Airway MP II, TM >3 FB, Mouth opening >2 FB. CV cardiovascular normal Pulm Clear to auscultation bilaterally. Neuro grossly normal. Anesthesia Plan ASA: 2 Type: General. Induction: Intravenous. Potential problems: None anticipated. Monitors: Standard ASA monitors. Postop Pain Management: Consent statement: Anesthetic plan, alternatives, risks and benefits discussed with patient. Consenting person understands and agrees to proceed. Electronically Signed by: Rishabh Sosa MD ESig date/time: 02/16/2019 11:17 AM nesthesia Procedure Notes - Rishabh Sosa MD - 02/16/2019 11:16 AM PSTAssociated Order(s): AirwayAnesthesia Airway Placement 02/16/2019 10:45 AM Preprocedure check: patient identified Successful technique: Mac Laryngoscope blade size: 3 Airway grade: 3 (Only epiglottis seen, no glottis seen) Other equipment: stylette Attempts: 1 Airway type: endotracheal Size: 8 Performing provider: Rishabh Sosa MD Authorizing provider: Rishabh Sosa MD Please see intraoperative grid for any additional medication documentation. documented in this e ncounter Miscellaneous Notes Anesthesia Post-op Handoff - Rishabh Sosa MD - 02/16/2019 12:11 PM PSTFormatting of th is note might be different from the original. ANESTHESIA HANDOFF NOTE Shankar Duffy 48 y.o. male 1970 [id number] REPAIR TENDON BICEPS PROXIMAL (Left Shoulder) ARTHROSCOPY SHOULDER (Left Shoulder) HANDOFF NOTE Handoff Protocol Used: post-procedure handoff checklist completed The following were completed during the transfer of care: 1. Identification of patient 2. Identification of responsible practitioner (primary service) 3. Discussion of pertinent medical history 4. Discussion of the surgical/procedure course (procedure, reason for surgery, procedure pe rformed) 5. Intraoperative anesthetic management and issues/concerns 6. Expectations/plans for the early post-procedure period 7. Opportunity for questions and acknowledgement of understanding of report from receiving team Patient Location: Phase I Condition: awake The significant anesthesia concerns and VS in Epic were reviewed with the receiving team. Rishabh Sosa MD 02/16/2019 12:11 PM [facility] Kady mented in this encounter Plan of Treatment +--------+---------+ + + + | Date | Type | Specialty | Care Team | Description | +--------+---------+ + + + | 11/30/ | Office | Orthopedic Surgery | Pradip Servin, | | | 2019 | Visit | | [address] | | | | | | [place] [address] | | | | | | [phone] | | | | | | | | +--------+---------+ + + + documented as of this encounter Procedures + +--------+ + + + | Procedure Name | Priori | Date/Time | Associated Diagnosis | Comments | | | ty | | | | + +--------+ + + + | ANE NERVE BLOCK | Routin | 02/16/2019 | | Results for this | | CATHETER NOTE | e | 11:59 AM | | procedure are in the | | | | PST | | results section. | + +--------+ + + + | ANE AIRWAY NOTE | Routin | 02/16/2019 | | Results for this | | | e | 11:16 AM | | procedure are in the | | | | PST | | results section. | + +--------+ + + + documented in this encounter Results Nerve Block (02/16/2019 11:59 AM PST) + + + | Narrative | Performed At | + + + | Rishabh Sosa MD 02/16/2019 11:59 AM Perineural Procedure | | | Note 02/16/2019 10:33 AM Nerve block: interscalene-brachial plexus | | | Laterality: left Continuous block with catheter: No Indication: | | | acute pain management and postoperative analgesia Patient position: | | | supine Preparation: chlorhexidine/isopropyl alcohol Introducer | | | used: no Technique: ultrasound Needle: stimulating Needle size: 20 | | | g Needle length: 4 in Depth of nerve/plexus: 3 cm Total volume of | | | local anesthetic solution administered: 30 mL Attempts: 1 Ease of | | | procedure: easy Medications Administered Midazolam (VERSED) | | | 1 mg/mL IV, 2 mg Date/Time: 02/16/2019 10:36 AM Please see | | | anesthesia record or flowsheet for vital sign documentation and see | | | anesthesia record or MAR for additional medication documentation. | | | Performing provider: Rishabh Sosa MD Authorizing provider: | | | Rishabh Sosa MD | | + + + Airway (02/16/2019 11:16 AM PST) + + + | Narrative | Performed At | + + + | Rishabh Sosa MD 02/16/2019 11:16 AM Anesthesia Airway | | | Placement 02/16/2019 10:45 AM Preprocedure check: patient | | | identified Successful technique: Mac Laryngoscope blade size: 3 | | | Airway grade: 3 (Only epiglottis seen, no glottis seen) Other | | | equipment: stylette Attempts: 1 Airway type: endotracheal Size: 8 | | | Performing provider: Rishabh Sosa MD Authorizing provider: Rishabh | | | MD Sheila Please see intraoperative grid for any | | | additional medication documentation. | | + + + documented in this encounter Visit Diagnoses Not on filedocumented in this encounter Administered Medications + +--------+ +------+------+------+ | Medication Order | MAR | Action | Dose | Rate | Site | | | Action | Date | | | | + +--------+ +------+------+------+ | ceFAZolin in dextrose (ANCEF) | Given | 02/17/20 | 2 g | | | | IVPB 2 g 2 g, Intravenous, | | 19 10:41 | | | | | Administer over 30 Minutes, Prior | | AM PST | | | | | to Incision, Starting Mon | | | | | | | 02/16/19 at 0914, For 1 dose, | | | | | | | Pre-op, Indications: Surgical | | | | | | | Prophylaxis | | | | | | + +--------+ +------+------+------+ +---+---+ | | | +---+---+ + +-------+ +------+---+---+ | dexamethasone (DECADRON) 4 | Given | 02/17/20 | 8 mg | | | | mg/mL injection Intravenous, | | 19 11:00 | | | | | PRN, Starting Sat02/16/19 at | | AM PST | | | | | 1100, Anesthesia Intra-op | | | | | | + +-------+ +------+---+---+ +---+---+ | | | +---+---+ + +-------+ +---------+---+---+ | fentaNYL (PF) injection | Given | 02/17/20 | 100 mcg | | | | Intravenous, PRN, Starting Mon | | 19 10:45 | | | | | 02/16/19 at 1045, Anesthesia | | AM PST | | | | | Intra-op | | | | | | + +-------+ +---------+---+---+ +---+---+ | | | +---+---+ + + + +---+---+---+ | lactated ringers (LR) infusion | Continue | 02/17/20 | | | | | at 30 mL/hr, Intravenous, | d by | 19 10:41 | | | | | CONTINUOUS, Starting 02/16/19 | Anesthes | AM PST | | | | | at 0945, Pre-op | ia | | | | | + + + +---+---+---+ +---------+ +---+ +---+ | New Bag | 02/17/20 | | 30 mL/hr | | | | 19 9:40 | | | | | | AM PST | | | | +---------+ +---+ +---+ +---+---+ | | | +---+---+ + +-------+ +-------+---+---+ | lidocaine (PF) 2% injection | Given | 02/17/20 | 40 mg | | | | Intravenous, PRN, Starting Mon | | 19 10:45 | | | | | 02/16/19 at 1045, Anesthesia | | AM PST | | | | | Intra-op | | | | | | + +-------+ +-------+---+---+ +---+---+ | | | +---+---+ + +-------+ +------+---+---+ | midazolam (VERSED) 1 mg/mL | Given | 02/17/20 | 2 mg | | | | injection Intravenous, Starting | | 19 10:36 | | | | | 02/16/19 at 1036, Anesthesia | | AM PST | | | | | Intra-op | | | | | | + +-------+ +------+---+---+ +---+---+ | | | +---+---+ + +-------+ +------+---+---+ | ondansetron (ZOFRAN) injection | Given | 02/17/20 | 4 mg | | | | Intravenous, PRN, Starting Mon | | 19 11:00 | | | | | 02/16/19 at 1100, Anesthesia | | AM PST | | | | | Intra-op | | | | | | + +-------+ +------+---+---+ +---+---+ | | | +---+---+ + +-------+ +--------+---+---+ | propofol (DIPRIVAN) injection | Given | 02/17/20 | 200 mg | | | | Intravenous, PRN, Starting Mon | | 10:45 | | | | | 02/16/19 at 1045, Anesthesia | | AM PST | | | | | Intra-op | | | | | | + +-------+ +--------+---+---+ +---+---+ | | | +---+---+ + +-------+ +-------+---+---+ | rocuronium (ZEMURON) injection | Given | 02/17/20 | 20 mg | | | | Intravenous, PRN, Starting Mon | | 19 10:56 | | | | | 02/16/19 at 1045, Anesthesia | | AM PST | | | | | Intra-op | | | | | | + +-------+ +-------+---+---+ +-------+ +------+---+---+ | Given | 02/17/20 | 5 mg | | | | | 19 10:45 | | | | | | AM PST | | | | +-------+ +------+---+---+ +---+---+ | | | +---+---+ + +-------+ +--------+---+---+ | ropivacaine (NAROPIN) 5 mg/mL | Given | 02/17/20 | 30 mLs | | | | (0.5%) injection 30 mL 30 mL, | | 19 10:36 | | | | | PERINEURAL, ONCE, 02/16/19 at | | AM PST | | | | | 0930, For 1 dose, Pre-op | | | | | | + +-------+ +--------+---+---+ +---+---+ | | | +---+---+ + +-------+ +--------+---+---+ | succinylcholine (ANECTINE) | Given | 02/17/20 | 150 mg | | | | injection Intravenous, PRN, | | 19 10:45 | | | | | Starting 02/16/19 at 1045, | | AM PST | | | | | Anesthesia Intra-op | | | | | | + +-------+ +--------+---+---+ +---+---+ | | | +---+---+ documented in this encounter"
--- OUTSIDE RECORDS SUMMARY | ~2019-11-02 | XMS | Encounter Summary ---
Demographics + + + | Address | [facility] [address] | | | [place] [address] | + + + | Home Phone | | + + + | Preferred Language | Unknown | + + + | Marital Status | | + + + | Faith Affiliation | Unknown | + + + | Race | Unknown | + + + | Ethnic Group | or | + + + Author + + + | Author | [facility] | | | and [place] | + + + | Organization | [facility] | | | and [...] Team Providers + +------+ + | Care Manager Community Name | Role | Phone | + +------+ + | Unknown, Doctor | PCP | | + +------+ + Reason for Visit Evaluate & Treat (Routine) + +--------+ + + + + | Status | Reason | Specialty | Diagnoses / | Referred By | Referred To | | | | | Procedures | Contact | Contact | + +--------+ + + + + | Authorized | | Orthopedic | Diagnoses | Tho | Sukhi Espinoza Osm | | | | Surgery | Unspecified | Ortiz | [address] | | | | | rotator | MD Riley | [address] | | | | | cuff tear or | [address] | [place], [place] | | | | | rupture of | [address] | [address] | | | | | left | [address] | Phone: | | | | | shoulder, | [place], | [phone] | | | | | not | [place] [address] | Fax: | | | | | specified as | Phone: | [phone] | | | | | traumatic | [phone] | | | | | | Left | Fax: | | | | | | Shoulder | [phone] | | | | | | (urgent care | | | | | | | referring) | | | + +--------+ + + + + Encounter Details +--------+---------+ + + + | Date | Type | Department | Care Team | Description | +--------+---------+ + + + | 10/05/ | Office | [facility] | Pradip Servin, | S/P shoulder surgery | | 2020 | Visit | [facility] | [address] | (Primary Dx) | | | | MEDICINE JAIME | [place] [address] | | | | | [address] | [phone] | | | | | [place], [place] | | | | | | [address] | | | | | | [phone] | | | +--------+---------+ + + + [...] encounter Progress Notes Pradip Servin MD - 10/06/2019 11:25 AM PDTFormatting of this note might be different fro m the original. [facility] Service: Orthopedic Surgery Clinic Note Procedure: 1. Left shoulder arthroscopic debridement, extensive 2.Left shoulder arthroscopic subacromial decompression 3.Left open biceps tenodesis Date of Procedure:02/16/2019 History: Shankar Duffy is a 49 y.o. male presenting for follow-up for his left shoulder . He states he is doing well. He still has some soreness after prolonged activity. He als o complains of some soreness in his elbow. Otherwise he is doing very well. He has returne d back to full duty at work. He denies numbness or tingling. Review of Systems: Review of Systems All other systems reviewed and are negative. OBJECTIVE Vital Signs: Vitals: 10/06/19 1141 Pulse: 70 Temp: 36.9 C (98.5 F) PainSc: 3 Exam: Left shoulder: Skin is intact without [...] ASSESSMENT Left shoulder status post surgery PLAN The patient does appear to be progressing very well. He is very happy with the outcome of his surgery. He has returned back to full duty at work. He does occasionally have some mil d soreness but otherwise I do believe he is at maximal medical improvement. I would recomme nd that he proceed with an independent medical examination for evaluation for possible impai rment. We will plan to see him back following his independent medical examination. All que stions were answered and he understood this plan. An APF was provided. Pradip Servin MD has created this entry using [employer] Voice Recognition software a [employer] macros. The entry has been reviewed and [...] [address] | | | | | | [place] [address] | | | | | | [phone] | | | | | | | | +--------+---------+ + + + documented as of this encounter Visit Diagnoses + + | Diagnosis | + + | S/P shoulder surgery - Primary Other postprocedural status | + + documented in this encounter
--- OUTSIDE RECORDS SUMMARY | ~2019-11-02 | XMS | Encounter Summary ---
Demographics + + + | Address | [facility] [address] | | | [place] [address] | + + + | Home Phone | | + + + | Preferred Language | Unknown | + + + | Marital Status | | + + + | Anglican Affiliation | Unknown | + + + | Race | Unknown | + + + | Ethnic Group | or | + + + Author + + + | Author | [facility] | | | and [place] | + + + | Organization | [facility] | | | [...] Team Providers + +------+ + | Care Plc Engineer Name | Role | Phone | + +------+ + | Unknown, Doctor | PCP | | + +------+ + Reason for Visit + + + | Reason | Comments | + + + | Post-op Exam | Tear of rotator cuff, unspecified laterality, unspecified tear | | | extent, unspecified whether traumatic | + + + Evaluate & Treat [...] | Surgery | Unspecified | Ortiz | [place] [address] | | | | | rotator | MD Riley | [address] | | | | | cuff tear or | [address] | [place], [place] | | | | | rupture of | [address] | [address] | | | | | left | [address] | Phone: | | | | | shoulder, | [place], | [phone] | | | | | not | [place] [address] | Fax: | | | | | specified as | Phone: | [phone] | | | | | traumatic | [phone] | | | | | | Left | Fax: | | | | | | Shoulder | [phone] | | | | | | (urgent care | | | | | | | referring) | | | + +--------+ + + + + Encounter Details +--------+---------+ + + + | Date | Type | Department | Care Team | Description | +--------+---------+ + + + | 03/19/ | Office | [facility] | Pradip Servin, | S/P shoulder surgery | | 2020 | Visit | [facility] | [address] | (Primary Dx) | | | | MEDICINE JAIME | [place] [address] | | | | | [address] | [phone] | | | | | [place], [place] | | | | | | [address] | | | | | | [phone] | | | +--------+---------+ + + + [...] + + + | Blood Pressure | 134/82 | 03/19/2019 1:11 PM | | | | | PST | | + + + + + | Pulse | 66 | 03/19/2019 1:11 PM | | | | | PST | | + + + + + | Temperature | - | - | | + + + + + | Respiratory Rate | - | - | | + + + + + | Oxygen Saturation | 99% | 03/19/2019 1:11 PM | | | | | PST | | + + + + + | Inhaled Oxygen | - | - | | | Concentration | | | | + + + + + | Weight | 97.5 kg (215 lb) | 03/19/2019 1:11 PM | | | | | PST | | + + + + + | Height | 180.3 cm (5' 11") | 03/19/2019 1:11 PM | | | | | PST | | + + + + + | Body Mass Index | 29.99 | 03/19/2019 1:11 PM | | | | | PST | | + + + + + documented in this encounter Progress Notes Bakari Cantu PA - 03/19/2019 1:10 PM PSTFormatting of this note might be differen t from the original. [facility] Service: Orthopedic Surgery Post Op Note Procedure: 1. Left shoulder arthroscopic debridement, extensive 2.Left shoulder arthroscopic subacromial decompression 3.Left open biceps tenodesis Date of Procedure: 02/16/2019 Subjective: Shankar Duffy is seen today for their post operative followup visit.. He states natalie balderas is having some continued postoperative pain but says he is improving. He has been going t o physical therapy regularly. He has already weaned from his sling. He denies numbness or tingling. He has no concerns at this time. Objective: Wt Readings from Last 1 Encounters: 02/25/19 97.8 kg (215 lb 9.6 oz) Temp Readings from Last 1 Encounters: 02/16/19 36.2 C (97.1 F) (Temporal) BP Readings from Last 1 Encounters: 02/25/19 150/60 Pulse Readings from Last 1 Encounters: 02/25/19 84 Exam: Left shoulder Incisions are healing well without signs of infection. Forward flexion: 170, passive Abduction: 110, passive Palpable radial pulse Sensation intact to light touch Assessment & Plan: I discussed with Shankar that he is progressing appropriately. We discussed that he can now we an out of his sling. We discussed that he will continue with physical therapy and following the protocol. We discussed increasing the activity using his shoulder in a slow, step-william f ashion as tolerated. We will plan to see him back in 6 weeks. All questions were answered. Tyra balderas also discussed pain management and a prescription of Tramadol was given. He understood thi s plan. AN APF was given with restrictions. Pradip Servin MD has created this entry using [employer] Voice Recognition software a [employer] macros. The entry has been reviewed and [...] [address] | | | | | | [place] [address] | | | | | | [phone] | | | | | | | | +--------+---------+ + + + documented as of this encounter Visit Diagnoses + + | Diagnosis | + + | S/P shoulder surgery - Primary Other postprocedural status | + + documented in this encounter
--- OUTSIDE RECORDS SUMMARY | ~2019-11-02 | XMS | Encounter Summary ---
Demographics + + + | Address | [address] | | | [place] [address] | + + + | Home Phone | | + + + | Preferred Language | Unknown | + + + | Marital Status | | + + + | Nondenominational Affiliation | CAT | + + + | Race | Unknown | + + + | Ethnic Group | or | + + + Author + + + | Author | [facility] | + + + | Organization | [facility] | + + + | Address | Unknown | + + + | Phone | Unavailable | + + + Support + + + + + | Name | Relationship | Address | Phone | + + + + + | Bernadette Chino | ECON | [address] | | | [place]ba | | [place] [address] | | + + + + + Care Team Providers + +------+ + | Care Senior Teller Name | Role | Phone | + +------+ + | Mayda Flores FITTING ROOM ATTENDANT | PCP | | + +------+ + Reason for Visit PROC - Outpatient Surgery (Routine) +--------+--------+ + [...] | | | | REQUEST [place] | [place] | | | | | [place]GERY | [address] | [phone] | | | | | EDUCATION ASSOCIATE | Phone: | Phone: | | | | | [place] [facility] | [phone] | [phone] | | | | | LES[facility] | Fax: | Fax: | | | | | NECK/CHEST,S | [phone] | [phone] | | | | | [place] | | | | | | | EXC NECK LES | | | | | | | SC=3CM | | | +--------+--------+ + + + + Encounter Details +--------+---------+ + + + | Date | Type | Department | Care Team | Description | +--------+---------+ + + + | 08/22/ | Surgery | [facility] | Garrett Leong MD | EXCISION OF NECK | | 2017 | | [facility] [address] | [address], [place] | [place] | | | | [address] | [address] [place] [address] | | | | | [place] | [address] | | | | | [address] | [phone] | | | | | | | [...] + + + | Blood Pressure | 122/72 | 08/22/2016 3:02 PM | | | | | PDT | | + + + + + | Pulse | 57 | 08/22/2016 3:02 PM | | | | | PDT | | + + + + + | Temperature | 36.3 C (97.3 F) | 08/22/2016 3:02 PM | | | | | PDT | | + + + + + | Respiratory Rate | 16 | 08/22/2016 3:02 PM | | | | | PDT | | + + + + + | Oxygen Saturation | 97% | 08/22/2016 3:02 PM | | | | | PDT | | + + + + + | Inhaled Oxygen | - | - | | | Concentration | | | | + + + + + | Weight | 95.5 kg (210 lb 8.6 | 08/22/2016 10:22 AM | | | | oz) | PDT | | + + + + + | Height | 180.3 cm (5' 11") | 08/22/2016 10:22 AM | | | | | PDT | | + + + + + | Body Mass Index | 29.36 | 08/22/2016 10:22 AM | | | | | PDT | | + + + + + documented in this encounter Discharge Instructions Instructions Xin Aguilar RN - 08/22/2016POST SEDATION DISCHARGE INSTRUCTIONS The medications you have received today for your procedure will remain in your body for arron e time. You may experience dizziness, drowsiness, or lightheadedness. You sense of balance a nd fine muscle control may be affected. You reaction time will be slowed, making activities like driving dangerous. You may not recognize any of these changes. Therefore to assure a sa fe and complete recovery, we ask you to follow these strict instructions. 1. DO NOT DRIVE for 24 hours. 2. DO NOT USE potentially DANGEROUS appliances or equipment (stove, lawnmower, garbage disp osal, iron, etc.) 3. Be aware of DIZZINESS. Move slowly, taking you time. Sudden position changes can cause n ausea. 4. DO NOT MAKE Any IMPORTANT DECISIONS. You may change your mind tomorrow. 5. NO NOT DRINK ALCOHOLIC beverages for 24 hours. The combination of drugs and alcohol coul d be dangerous. 6. DISCUSS with your doctor and questions or concerns you may have. Lipoma: Care Instructions Your Care Instructions A lipoma is a growth of fat just below the skin. It may feel soft and rubbery. Lipomas can occur anywhere on the body. But they are most common on the torso, neck, upper thighs, upper arms, and armpits. A lipoma does not turn into cancer. Lipomas usually are not treated, because most of them don't hurt or cause problems. But you r doctor may remove a lipoma if it is painful, gets infected, or bothers you. Follow-up care is a sampson part of your treatment and safety. Be sure to make and go to all ap pointments, and call your doctor if you are having problems. It's also a good idea to know y our test results and keep a list of the medicines you take. How can you care for yourself at home? Lipomas usually need no care at home. If your doctor removes a lipoma, follow directions for taking care of the cut (incision) . When should you call for help? Call your doctor now or seek immediate medical care if: You have signs of infection, such as: Increased pain, swelling, warmth, or redness. Red streaks leading from the lipoma. Pus draining from the lipoma. A fever. Watch closely for changes in your health, and be sure to contact your doctor if: You want to discuss having a lipoma removed. Where can you learn more? To learn more about "Lipoma: Care Instructions", log into your [employer] account at [email or web address]. You can enter [id number] in the "Giphy Library" search box. Not on [employer]? Review the RouterSharehart section of your After Visit Summary for directions on obdulio doran to sign up. Current as of: December 22, 2015 Content Version: 11.2 [id number] [employer]. Care instructions adapted under license by [facility] [employer] [place]. If you have questions about a medical condition or this instr uction, always ask your healthcare professional. [employer] disclaims any iram anty or liability for your use of this information. documented in this encounter Medications at Time of Discharge [...] + + +---------+ + + | Fish Oil-[place]-3 | Take by mouth two | | 0 | | | | Fatty Acids (FISH | times daily. | | | | | | OIL) 340-1,000 mg | | | | | | | oral capsule | | | | | | + + + +---------+ + + | gemfibrozil 600 mg | Take 600 mg by mouth | | 0 | [id number] | | | oral tablet | two times daily. | | | 16 | | + + + +---------+ + + documented as of this encounter H&P Notes Garrett Leong MD - 08/22/2016 11:50 AM PDTI have reviewed the pre-procedural history and ph ysical and there are no changes. documented in this encou nter Procedure Notes Garrett Leong MD - 08/22/2016 12:57 PM PDTAssociated Order(s): SOFT TISSUE MASS EXCISIONPro cedure(s): SOFT TISSUE MASS EXCISIONPre-Procedure Diagnose(s): Neck massPost-Procedure Diagn ose(s): Neck mass Procedure: Excision of soft tissue mass of the neck Surgeon: Dang Anesthesia: General Dr. Dejesus Findings: Large subcutaneous mass of the posterior neck approximately 7 x 8 centimeters. Grossly looks of likely like a lipoma. Procedure note: Patient was prepped and draped in usual sterile manner after adequate anes thesia been achieved by general tracheal. He was placed on his left lateral decubitus posit ion for the surgery. Local was injected in the skin and subcutaneous tissue in the area of t he lower neck upper back. Transverse incision was made over the prior marked mass carried d own through subcutaneous tissue. The mass was identified it looked grossly like a lipoma. I t was freed circumferentially and was stuck down in several positions all freed with electro cautery. In this manner was removed completely. I feel no residual mass. The wound was the n closed with interrupted 3 0 Vicryl in 2 layers of the subcutaneous tissue and a 4 Monocryl subcuticular suture with dermal skin glue. Patient tolerated procedure well was sent to re covery room in stable condition documented in this encounter Miscellaneous Notes Plan of Care - Anabel Turk RN - 08/22/2016 3:43 PM PDTProblem: General Plan of Care ( Adult) Goal: Plan of Care Review Outcome: Goal met Date Met: 08/22/16 Uneventful recovery, pain is well controlled. Patient states understanding to discharge ins tructions, all questions answered. lan of Anabel Ocasio RN - 08/22/2016 3:33 PM PDTProblem: Perioperative Period (Adult, Obstetrics) Goal: Signs and symptoms of listed potential problems will be absent or manageable (referen ce (Perioperative Period (Adult, Obstetrics)) CPG) Outcome: Goal met Date Met: 08/22/16 lan of Anabel Ocasio RN - 08/22/2016 3:33 PM PDTProblem: General Plan of Care (Adult) Goal: Individualization/Patient-Specific Goal Outcome: Goal met Date Met: 08/22/16 documented in this en counter Plan of Treatment Not on filedocumented as of this encounter Procedures + +--------+ + + + | Procedure Name | Priori | Date/Time | Associated Diagnosis | Comments | | | ty | | | | + +--------+ + + + | SOFT TISSUE MASS | Routin | 08/22/2016 | | Results for this | | EXCISION | e | 12:59 PM | | procedure are in the | | | | PDT | | results section. | + +--------+ + + + | EXCISION OF SEE | Electi | 08/22/2016 | R22.1 (ICD-10-CM) | | | COMMENTS GENERAL | ve | 12:21 PM | - 784.2 (ICD-9-CM) - | | | | Surgic | PDT | Mass in neck | | | | al | | | | + +--------+ + + + | CAP GLU,POC | Routin | 08/22/2016 | | Results for this | | | e | 10:47 AM | | procedure are in the | | | | PDT | | results section. | + +--------+ + + + | 12 LEAD ECG | Urgent | 08/22/2016 | | Results for this | | | | 12:00 AM | | procedure are in the | | | | PDT | | results section. | + +--------+ + + + documented in this encounter Results SOFT TISSUE MASS EXCISION (08/22/2016 12:59 PM PDT) + + + | Narrative | Performed At | + + + | Garrett Leong MD 08/22/2016 12:59 PM Procedure: Excision | | | of soft tissue mass of the neck Surgeon: Dang Anesthesia: | | | General Dr. Dejesus Findings: Large subcutaneous mass of the | | | posterior neck approximately 7 x 8 centimeters. Grossly looks of | | | likely like a lipoma. Procedure note: Patient was prepped and | | | draped in usual sterile manner after adequate anesthesia been | | | achieved by general tracheal. He was placed on his left lateral | | | decubitus position for the surgery. Local was injected in the skin | | | and subcutaneous tissue in the area of the lower neck upper back. | | | Transverse incision was made over the prior marked mass carried | | | down through subcutaneous tissue. The mass was identified it looked | | | grossly like a lipoma. It was freed circumferentially and was | | | stuck down in several positions all freed with electrocautery. In | | | this manner was removed completely. I feel no residual mass. The | | | wound was then closed with interrupted 3 0 Vicryl in 2 layers of | | | the subcutaneous tissue and a 4 Monocryl subcuticular suture with | | | dermal skin glue. Patient tolerated procedure well was sent to | | | recovery room in stable condition | | + + + CAP GLU,POC (08/22/2016 10:47 AM PDT) + + + + + + | Component | Value | Ref Range | Performed | Pathologist | | | | | At | Signature | + + + + + + | BLOOD | 92Comment: Patient | mg/dL | [facility] | | | GLUCOSE, | discharged | | OF CARE | | | POC | | | TESTING | | + + + + + + + + | Specimen | + + | | + + + +---------+ + + | Performing | Address | City/State/Zipcode | Phone Number | | Organization | | | | + +---------+ + + | [facility] | | | | | TESTING | | | | + +---------+ + + 12 LEAD ECG (08/22/2016 12:00 AM PDT) + + + | Impressions | Performed At | + + + | Agree with the preliminary interpretation. Comparison EKG: None | | | This has been electronically signed by Fariha Skelton MD, | | | 08/24/2016 at 3:48 AM. | | + + + + + + | Narrative | Performed At | + + + | | | + + + documented in this encounter Visit Diagnoses Not on filedocumented in this encounter Administered Medications + +--------+ +------+------+------+ | Medication Order | MAR | Action | Dose | Rate | Site | | | Action | Date | | | | + +--------+ +------+------+------+ | bupivacaine-EPINEPHrine | Given | 08/23/19 | 5 mL | | Neck | | (MARCAINE-EPINEPHRINE) 0.25 | | 17 12:36 | | | | | %-1:200,000 injection | | PM PDT | | | | | INTRAPROCEDURE PRN, Starting Wed | | | | | | | 08/22/16 at 1236, Until Wed | | | | | | | 08/22/16 at 1300 | | | | | | + +--------+ +------+------+------+ +---+---+ | | | +---+---+ + +-------+ +---------+---+---+ | HYDROcodone-acetaminophen | Given | 08/23/19 | 2 | | | | (NORCO) 5-325 mg tablet 1-2 | | 17 2:20 | tablets | | | | tablet 1-2 tablet, oral, EVERY 4 | | PM PDT | | | | | HOURS NEEDED, Starting Wed | | | | | | | 08/22/16 at 1208, Until Wed | | | | | | | 08/22/16 at 1608, moderate pain | | | | | | + +-------+ +---------+---+---+ + +---+ | | | + +---+ | HYDROcodone-acetaminophen | | | (NORCO) 5-325 mg tablet 1 dose, | | | Starting Sat08/22/16 at 1416, | | | Until Sat08/22/16 at 1420 | | + +---+ | | | + +---+ + +-------+ +--------+---+---+ | HYDROmorphone (DILAUDID) | Given | 08/23/19 | 0.5 mg | | | | injection 0.2-0.5 mg 0.2-0.5 mg, | | 17 1:20 | | | | | intravenous, POSTPROCEDURE PRN, | | PM PDT | | | | | Starting Sat08/22/16 at 1215, | | | | | | | Until Sat08/22/16 at 1357, | | | | | | | moderate pain while in PACU | | | | | | + +-------+ +--------+---+---+ + +---+ | | | + +---+ | HYDROmorphone (DILAUDID) | | | injection 1 dose, Starting Wed | | | 08/22/16 at 1317, Until Wed | | | 08/22/16 at 1320 | | + +---+ | | | + +---+ | lactated Ringers IV 500 mL, | | | intravenous, POSTPROCEDURE PRN, 1 | | | dose, Starting Sat08/22/16 at | | | 1215, Until Sat08/22/16 at 1608, | | | nausea/vomiting due to | | | dehydration | | + +---+ | | | + +---+ | lidocaine PF (XYLOCAINE MPF) | | | injection intradermal, | | | PREPROCEDURE ONCE, 1 dose, | | | Starting Sat08/22/16 at 1040, | | | Until Sat08/22/16 at 1608 | | + +---+ | | | + +---+ | lidocaine PF (XYLOCAINE MPF) | | | injection intradermal, | | | PREPROCEDURE ONCE, 1 dose, | | | Starting Sat08/22/16 at 1040, | | | Until Sat08/22/16 at 1608 | | + +---+ | | | + +---+ | NaCl 0.9 % flush 5 mL 5 mL, | | | intravenous, NEEDED, 1 dose, | | | Starting 08/22/16 at 1040, | | | Until 08/22/16 at 1608, line | | | patency | | + +---+ | | | + +---+ | NaCl 0.9 % flush 5 mL 5 mL, | | | intravenous, NEEDED, 1 dose, | | | Starting 08/22/16 at 1040, | | | Until 08/22/16 at 1608, line | | | patency | | + +---+ | | | + +---+ | ondansetron (ZOFRAN) injection | | | 4 mg 4 mg, intravenous, EVERY 12 | | | HOURS NEEDED, Starting Wed | | | 08/22/16 at 1208, Until Wed | | | 08/22/16 at 1608, nausea/vomiting, | | | first line | | + +---+ | | | + +---+ documented in this encounter
--- OUTSIDE RECORDS SUMMARY | ~2019-11-02 | XMS | Encounter Summary ---
Demographics + + + | Address | [address] | | | [place] [address] | + + + | Home Phone | | + + + | Preferred Language | Unknown | + + + | Marital Status | | + + + | Jehovah'S Witness Affiliation | CAT | + + + | Race | Unknown | + + + | Ethnic Group | or | + + + Author + + + | Author | [facility] | + + + | Organization | [facility] | + + + | Address | Unknown | + + + | Phone | Unavailable | + + + Support + + + + + | Name | Relationship | Address | Phone | + + + + + | Bernadette Chino | ECON | [address] | | | [place] | | [place] [address] | | + + + + + Care Team Providers + +------+ + | Care National Stormwater Leader Name | Role | Phone | + +------+ + | Mayda Flores LAND LEASING EXAMINER | PCP | | + +------+ + Reason for Visit +--------+ + | Reason | Comments | +--------+ + | Rash | Pt here today for rash on his chest that is itchy and sometimes | | | churchill or stings. He states it has been present 5-7 years and | | | seems to coincide with his shingles outbreak. | +--------+ + Consultation (Routine) +--------+ + + + + + | Status | Reason | Specialty | Diagnoses / | Referred By | Referred To | | | | | Procedures | Contact | Contact | +--------+ + + + + + | Closed | Specialty | Dermatology | Diagnoses | Autumn, | Cherie, | | | Services | | chronic | Vanna, COLLAR CUTTER | Vandana Harris MD | | | Required | | intermittent | [place] | [address] | | | | | upper chest | Medical | [address] | | | | | rash | [address] | [place], [place] | | | | | | [place] | [address] | | | | | | St | | | | | | | [place], | | | | | | | [place] [address] | | | | | | | Phone: | | | | | | | [phone] | | | | | | | Fax: | | | | | | | [phone] | | +--------+ + + + + + Encounter Details +--------+---------+ + + + | Date | Type | Department | Care Team | Description | +--------+---------+ + + + | 06/20/ | Office | Dermatology at | Vandana Crespo | Tinea versicolor | | 2017 | Visit | [facility] | MD Kimberly | (Primary Dx) | | | | Clinic [address] | | | | [address] [place], [place] | | | | | | [address] | | | | | | [phone] | | | +--------+---------+ + + + [...] + + + + | Pulse | - | - | | + [...] + + + + | Weight | 100.7 kg (222 lb) | 06/20/2016 8:51 AM | | | | | PDT | | + + + + + | Height | 180.3 cm (5' 11") | 06/20/2016 8:51 AM | | | | | PDT | | + + + + + | Body Mass Index | 30.96 | 06/20/2016 8:51 AM | | | | | PDT | | + + + + + documented in this encounter Patient Instructions Patient Instructions Rosanna Elkins MA - 06/20/2016 9:00 AM PDTSUNSCREEN APPLICATION AN D UV PROTECTION ? Exposure to ultraviolet radiation is the leading cause of premature aging, and skin cance rs including melanoma. ? The [place] [employer] (AAD) recommends you wear a wide-brimmed hat, sun gla sses and sun protective clothing. If you must be in the sun, it is recommended to use a Bro ad spectrum sunscreen (blocking both UVA and UVB) with a sun protection factor (SPF) of 30+ (even on cloudy days) and reapply every two hours, or after swimming or heavy perspiration. ? Sunscreens should be applied generously and evenly. One fluid ounce (or the equivalent o f a full shot glass) is the approximate amount of sunscreen required for each person each ti me sunscreen is applied. ? Sunscreens have an expiration date and once that date is reached, they may lose effective ness and should be discarded. ? Sunscreen is also important for blocking reflected UVR (Ultraviolet Radiation). Sand, con crete, snow, water, and other surfaces reflect UVR which has the same effect to your skin as direct sunlight. THE "ABCDE" RULE AND MELANOMA DETECTION Asymmetry - compare one half of the growth to the other half to determine if the halves are equal in size and appearance. Border - If the mole's border is irregular, notched, scalloped, or indistinct, it should be checked by a doctor. Color - Variation of color (e.g., more than one color or shade) within a mole is a suspicio us finding. Diameter - Any mole that has a diameter larger than a pencil's eraser should be checked by a doctor. Evolving - If a mole is changing in size, shape, color, elevation, surface texture or becom es itchy or painful, it should be checked by a doctor. Additional sunscreen and melanoma information is available at the following websites: [email or web address] - [facility] Derm atology http://www.aad.org/public/sun/smart.html - AAD Website documented in this encounter Progress Notes Rosanna Elkins MA - 06/20/2016 9:00 AM PDTFormatting of this note might be different fr om the original. DERMATOLOGY NEW PATIENT VISIT CHIEF COMPLAINT: Rash PCP: ENOC Osborne HISTORY OF PRESENT ILLNESS: Shankar Abdi is a 46 y.o. male who presents for evaluation of Rash. It has been prese nt for several years. He states that seem to occur initially after an episode of shingles o n his chest. He states that he does still have some residual burning and stinging on his ch est and back where shingles outbreak occurred. He states that this rash is sometimes more b right red than others. It is mildly itchy at times. He has never tried any treatments. He is concerned because it does seem to be spreading over a larger area. He has no other new, changing or symptomatic skin lesions. He has no other skin complaints today. He has no pe rsonal or family history of skin cancer. He grew up in [place]. They have no history of tanning bed use, no history of serious sunbur ns. Occupation: Works for the [email or web address]. Crowell skin type III. He does not use sunscreens and protective clothing, and does ex amine his skin regularly. The patient's dermatology intake form was reviewed, signed, and dated. His relevant PMH, F H, and SH includes: PAST MEDICAL HISTORY: No past medical history on file. PAST SURGICAL HISTORY: No past surgical history on file. FAMILY HISTORY: Family History: No history of skin cancer SOCIAL HISTORY: Patient reports that he has never smoked. He does not have any smokeless tobacco history o n file. MEDICATIONS: Current Medication List Name Sig AZELASTINE 137 MCG (0.1 %) NASAL SPRAY AEROSOL OMEGA-3 FATTY ACIDS-FISH OIL 340 MG-1,000 MG CAPSULE Take by mouth. GEMFIBROZIL 600 MG TABLET VENTOLIN HFA 90 MCG/ACTUATION AEROSOL INHALER ALLERGIES: No Known Allergies REVIEW OF SYSTEMS: Please see HPI and PMH. In addition, he denies fever, chills, sweats, weight loss or loss of appetite, and has no further skin complaints. PHYSICAL EXAMINATION: Ht 1.803 m (5' 11") | Wt 100.7 kg (222 lb) | BMI 30.96 kg/(m^2) Well-developed, well-nourished male in no acute distress. Awake, alert and oriented. Plea lazara and cooperative mood. A skin examination was performed including the face, eyelids, ears, lips, neck, chest, back , abdomen, bilateral arms, bilateral hands, and nails. Findings were within normal limits e xcept for the following: --left chest with faintly erythematous scaly thin well-demarcated small plaques coalescing into a single larger plaque on the left inframammary chest - BRENDA positive ASSESSMENT AND PLAN: Tinea versicolor (primary encounter diagnosis) Comment:Chest Plan: Reassured this is a benign, common skin condition caused by Malassezia furfur. It ca n be found as normal mani on the skin of many adults, thus it is not contagious. Although tinea versicolor can temporarily discolor the skin, it does not result in permanent skin dis coloration or internal problems. The change in pigmentation is often more noticeable during the summer months. Most treatment will resolve the overgrowth rather quickly, but no matter what treatment is used, it often takes months for the discoloration to resolve. People who are susceptible to tinea versicolor often reaquire the infection. Regular use of a Selsun Blue or Nizoral shampoo several times weekly can reduce the overgrowth and prevent recurrenc e. Use Selenium sulfide shampoo once overnight, then as a bodywash 2-3 X weekly as maintenan ce. RETURN VISIT: Return if symptoms worsen or fail to improve. Vandana Crespo MD Hoop Flaring Machine Operator Department of Dermatology [facility] Electronically signed by Vandana Crespo MD at 2016 9:29 AM PDTdocumented in this encounter Plan of Treatment Not on filedocumented as of this encounter Procedures + +--------+ + + + | Procedure Name | Priori | Date/Time | Associated Diagnosis | Comments | | | ty | | | | + +--------+ + + + | VA TISSUE EXAM BY | Routin | 06/20/2016 | Tinea versicolor | | | BRENDA | e | 9:29 AM | | | | | | PDT | | | + +--------+ + + + documented in this encounter Visit Diagnoses + + | Diagnosis | + + | Tinea versicolor - Primary Pityriasis versicolor | + + documented in this encounter
--- OUTSIDE RECORDS SUMMARY | ~2019-11-02 | XMS | Encounter Summary ---
Demographics + + + | Address | [address] | | | [place] [address] | + + + | Home Phone | | + + + | Preferred Language | Unknown | + + + | Marital Status | | + + + | Latter Day Affiliation | CAT | + + + | Race | Unknown | + + + | Ethnic Group | or | + + + Author + + + | Author | [facility] | + + + | Organization | [facility] | + + + | Address | Unknown | + + + | Phone | Unavailable | + + + Support + + + + + | Name | Relationship | Address | Phone | + + + + + | Bernadette Chino | ECON | [address] | | | [place] | | [place] [address] | | + + + + + Care Team Providers + +------+ + | Care Proration Clerk Name | Role | Phone | + +------+ + | Sherley Mora FOREST LANDSCAPE ECOLOGY PROFESSOR | PCP | | + +------+ + Reason for Referral Diagnostic Testing (Routine) +--------+--------+ + + + + | Status | Reason | Specialty | Diagnoses / | Referred By | Referred To | | | | | Procedures | Contact | Contact | +--------+--------+ + + + + | Closed | | Radiology | Diagnoses | [place] | Usha Mri | | | | | Arthritis | Evangelist Collazo MD | [address] | | | | | of left | [address] | [address] | | | | | acromioclavi | [address] | [place] | | | | | cular joint | | [phone] | | | | | Tear of | [place], | Phone: | | | | | left rotator | [place] [address] | [phone] | | | | | cuff, | Phone: | | | | | | unspecified | [phone] | | | | | | tear extent | Fax: | | | | | | Procedures | [phone] | | | | | | X-RAY | | | | | | | ARTHROGRAM | | | | | | | SHOULDER LT | | | | | | | W/INJECTION | | | | | | | SC INJ PROC | | | | | | | SHOULDER | | | | | | | ARTHROGRAPHY | | | | | | | /CT/MRI | | | +--------+--------+ + + + + Diagnostic Testing (Routine) +--------+--------+ + + + + | Status | Reason | Specialty | Diagnoses / | Referred By | Referred To | | | | | Procedures | Contact | Contact | +--------+--------+ + + + + | Closed | | Radiology | Diagnoses | [place], | [facility] | | | | | Arthritis | Evangelist Collazo MD | [address] | | | | | of left | [address] | [address] | | | | | acromioclavi | [address] | [place] | | | | | cular joint | | [address] | | | | | Tear of | [place], | Phone: | | | | | left rotator | [place] [address] | [phone] | | | | | cuff, | Phone: | | | | | | unspecified | [phone] | | | | | | tear extent | Fax: | | | | | | Procedures | [phone] | | | | | | MRI | | | | | | | ARTHROGRAM | | | | | | | SHOULDER LT | | | | | | | SC MRI, | | | | | | | JOINT UPPER | | | | | | | EXTREM | | | | | | | W/CONTRAST | | | +--------+--------+ + + + + Reason for Visit + + + | Reason | Comments | + + + | New patient | left shoulder pain | | consultation | | + + + Encounter Details +--------+---------+ + + + | Date | Type | Department | Care Team | Description | +--------+---------+ + + + | 05/20/ | Office | [facility] | Evangelist Curtis MD | Arthritis of left | | 2019 | Visit | Sports Medicine & | [address] [facility] | acromioclavicular | | | | Orthopaedic Surgery | Drive [place], | joint (Primary Dx); | | | | [address] | [place] [address] | Tear of left rotator | | | | [place], [place] | [phone] | cuff, unspecified | | | | [address] | | tear extent | | | | [phone] | | | +--------+---------+ + + + [...] of this encounter Patient Instructions Patient Instructions Adi Davenport - 05/20/2018 3:15 PM PDTReferred for an MRI Start taking Voltaren Follow up after MRI Limited activities that cause pain 19 3:48 PM PDT documented in this encounter Progress Notes Evangelist Curtis MD - 05/20/2018 3:15 PM PDT Chief Complaint: Left shoulder pain. HPI: Shankar Abdi is a 48 y.o. 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 He reports to a g radual onset of shoulder pain back in December. He reports no mechanism to his shoulder pain. He does a lot a lifting and repetitive activities at work. His pain is located primarily a t the anterior aspect of his shoulder. He does have some posterior shoulder pain at times. Deanne balderas reports that his shoulder pain is worsened with increased activities. He has increased alden n at night. He reports limited shoulder abduction. Overall, his strength is good. He has so me difficulties lifting while he's at work. He was seen by his PCP where x-rays were unremar kable. He was referred to the office today for orthopedic evaluation by Sherley Mora. He works [employer]. He denies significant previous shoulder problems. Current pain is 3/10 and is characterized as sharp, dull, aching and intermittent. Symptom s are worsening. The pain does wake the patient at night. It is associated with weakness. Symptoms are aggravated by twisting, lifting and overhead activities, and improve with res t. He is using no medications for the pain. Past Medical and Surgical History: Reviewed per patient intake form. Past Medical History: Diagnosis Date High cholesterol Sleep apnea Past Surgical History Procedure Laterality Date Sinus surgery Knee arthroscopy Right Ear drum repair Right CurrentMedications Current Outpatient Prescriptions Medication ERGOCALCIFEROL (VITAMIN D2) (VITAMIN D ORAL) Fish Oil-Lak[place]-3 Fatty Acids (FISH OIL) 340-1,000 mg oral capsule gabapentin 100 mg oral capsule gemfibrozil 600 mg oral tablet No current facility-administered medications for this visit. 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 He has never used smokeless tobacco. He reports that he does not drink alcohol. He reports that he does not use drugs. Review of Systems: Completed and reviewed with [...] and supine Stability: Good stability Special Tests: Moderate pain on secondary impingement test. Mild pain on primary impingem ent test. No pain on cross-arm testing. Negative bear huggers test Contralateral shoulder: Inspection: No swelling or obvious deformities. Palpation: Nontender. Range of motion: Full range of motion. Strength: Normal strength. Diagnostic Imaging: XR examination reveals mild AC joint Assessment: Left shoulder rotator cuff tendinitis. Possible left shoulder rotator cuff tear Shoulder AC joint arthritis Plan: The patient's clinical history and physical exam are consistent with left shoulder rotator cuff tendinitis and AC joint arthritis. I cannot rule out a small rotator cuff tear. I rev iewed the natural history of this disorder with the patient and have outlined treatment opti ons. since he has had symptoms over 6 months that limits his ability to perform his work a nd had significant weakness on exam of recommend an MRI of her shoulder to evaluate for a ro tator cuff tear. I will see him back in the office following his MRI. In the interim he wi ll start on Voltaren. Follow up: After MRI Evangelist Curtis MD [facility] Orthopaedics and Rehabilitation Clinical Rn Military Board Certified Orthopaedic Surgeon Fellowship Trained in Sports Medicine and Arthroscopic Surgery Specializing in Knee and Shoulder Surgery [facility] [address] [place] [id number] Office: [phone] [email or web address] documented in this enc ounter Plan of Treatment Not on filedocumented as of this encounter Results MRI ARTHROGRAM SHOULDER LT (06/23/2018 3:58 PM PDT) + + | Specimen | + + | | + + + + + | Narrative | Performed At | + + + | [address] [place] [address] | [facility] | | [place] [address] | [facility] | | [phone] Name: SHANKAR MANN Phys: | RADIOLOGY | | EVANGELIST CURTIS : 1970 Sex: M CSN: | | | MR# [id number] Exam Date: 06/23/2018 EXAM: MRI | | | OF THE left SHOULDER WITHOUT CLINICAL HISTORY: Chronic left | | | shoulder pain with limited range of motion. COMPARISON: Left | | | shoulder radiograph dated February 07, 2018 TECHNIQUE: | | | Multiplanar, multisequence MRI images of the left shoulder were | | | obtained. FINDINGS: ROTATOR CUFF Supraspinatus:There is some | | | subtle tendinosis involving the anterior terminal supraspinatus | | | tendon, with subtle fraying of the deep fibers. This is evident as | | | subtle contour abnormality, without discrete linear tear.This is | | | appreciated on coronal images 12 and 13 of series 8. additionally, a | | | focus of moderate tendinosis noted along the more bursal surface side | | | terminus of the posterior supraspinatus tendon at the junction with | | | the infraspinatus tendon, as seen on image 9 of series 8. | | | Infraspinatus:Tendinosis without discrete tear, at the junction with | | | the supraspinatus fibers. Teres minor:Within normal limits. | | | Subscapularis:Within normal limits. BURSA: No bursal effusion. | | | MUSCULATURE: No tear or contusion. AC JOINT: Moderate | | | tendinosis with mild hypertrophy. OSSEOUS STRUCTURES: No marrow | | | edema. LONG BICIPITAL TENDON: Normally seated in the bicipital | | | groove.The biceps labral anchor is normal. GLENOHUMERAL JOINT | | | Joint fluid: Intra-articular contrast present. Cartilage and | | | bone: Normal. Labrum: Small defect at the anterior superior | | | glenoid labrum follows the contour of the glenoid hyaline cartilage, | | | appearing most consistent with sublabral sulcus, identified on image | | | 13 of series 6. It is noted that there can be imaging overlap in the | | | appearance of sublabral sulcus and SLAP tear. Correlate for | | | symptoms of shoulder instability. Otherwise, no labral tear or | | | paralabral cyst identified. Small subcortical cyst noted at the | | | superior glenoid. IMPRESSION: Tendinosis of the supraspinatus and | | | infraspinatus tendons, with minimal deep fiber fraying of the | | | supraspinatus tendon, but without discrete macroscopic tear | | | identified. No muscle atrophy. Superior labral defect favored to | | | represent sublabral sulcus, an anatomic variant, over that of SLAP | | | tear. REPORT SIGNED IN OTHER VENDOR SYSTEM 06/24/2018 | | | Reported by: Gerardo Goldman MD Electronically signed by: Gerardo | | | MD Susi Transcribed Date/Time: 06/24/2018 16:00 | | | Telephone Operators Supervisor: FLUENCY | | + + + + + | Procedure Note | + + | Interface, Radiology Results - 06/24/2018 4:05 PM PDT [address] | [address] [place] [address] | | Name: SHANKAR MANN Phys: EVANGELIST CURTIS : 1970 Sex: M | | CSN: MR# [id number] Exam Date: 06/23/2018 EXAM:MRI OF THE left SHOULDER | | WITHOUT CLINICAL HISTORY:Chronic left shoulder pain with limited range of motion. | | COMPARISON:Left shoulder radiograph dated February 07, 2018 TECHNIQUE:Multiplanar, | | multisequence MRI images of the left shoulder wereobtained. FINDINGS:ROTATOR | | CUFFSupraspinatus:There is some subtle tendinosis involving the anteriorterminal | | supraspinatus tendon, with subtle fraying of the deepfibers. This is evident as subtle | | contour abnormality, withoutdiscrete linear tear.This is appreciated on coronal images | | 12 and 13of series 8. additionally, a focus of moderate tendinosis noted alongthe more | | bursal surface side terminus of the posterior supraspinatustendon at the junction with | | the infraspinatus tendon, as seen onimage 9 of series 8.Infraspinatus:Tendinosis without | | discrete tear, at the junction withthe supraspinatus fibers.Teres minor:Within normal | | limits.Subscapularis:Within normal limits. BURSA: No bursal effusion. MUSCULATURE: No | | tear or contusion. AC JOINT: Moderate tendinosis with mild hypertrophy. OSSEOUS | | STRUCTURES: No marrow edema. LONG BICIPITAL TENDON: Normally seated in the bicipital | | groove.Thebiceps labral anchor is normal. GLENOHUMERAL JOINTJoint fluid: | | Intra-articular contrast present. Cartilage and bone: Normal. Labrum: Small defect at | | the anterior superior glenoid labrum followsthe contour of the glenoid hyaline | | cartilage, appearing mostconsistent with sublabral sulcus, identified on image 13 of | | series 6.It is noted that there can be imaging overlap in the appearance ofsublabral | | sulcus and SLAP tear. Correlate for symptoms of shoulderinstability. Otherwise, no | | labral tear or paralabral cystidentified. Small subcortical cyst noted at the superior | | glenoid. IMPRESSION:Tendinosis of the supraspinatus and infraspinatus tendons, | | withminimal deep fiber fraying of the supraspinatus tendon, but withoutdiscrete | | macroscopic tear identified. No muscle atrophy. Superiorlabral defect favored to | | represent sublabral sulcus, an anatomicvariant, over that of SLAP tear. REPORT | | SIGNED IN OTHER VENDOR SYSTEM 06/24/2018 Reported by: Gerardo Goldman MD | | Electronically signed by: Gerardo Goldman MD Transcribed Date/Time: 06/24/2018 | | 16:00Transcriptionist: FLUENCY | |discrete linear tear.This is appreciated on coronal images 12 and 13 | |of series 8. additionally, a focus of moderate tendinosis noted along | |the more bursal surface side terminus of the posterior supraspinatus | |tendon at the junction with the infraspinatus tendon, as seen on | |image 9 of series 8. | |Infraspinatus:Tendinosis without discrete tear, at the junction with | |the supraspinatus fibers. | |Teres minor:Within normal limits. | |Subscapularis:Within normal limits. | | | |BURSA: No bursal effusion. | | | |MUSCULATURE: No tear or contusion. | | | |AC JOINT: Moderate tendinosis with mild hypertrophy. | | | |OSSEOUS STRUCTURES: No marrow edema. | | | |LONG BICIPITAL TENDON: Normally seated in the bicipital groove.The | |biceps labral anchor is normal. | | | |GLENOHUMERAL JOINT | |Joint fluid: Intra-articular contrast present. | | | |Cartilage and bone: Normal. | | | |Labrum: Small defect at the anterior superior glenoid labrum follows | |the contour of the glenoid hyaline cartilage, appearing most | |consistent with sublabral sulcus, identified on image 13 of series 6. | |It is noted that there can be imaging overlap in the appearance of | |sublabral sulcus and SLAP tear. Correlate for symptoms of shoulder | |instability. Otherwise, no labral tear or paralabral cyst | |identified. Small subcortical cyst noted at the superior glenoid. | | | |IMPRESSION: | |Tendinosis of the supraspinatus and infraspinatus tendons, with | |minimal deep fiber fraying of the supraspinatus tendon, but without | |discrete macroscopic tear identified. No muscle atrophy. Superior | |labral defect favored to represent sublabral sulcus, an anatomic | |variant, over that of SLAP tear. | | | | | | REPORT SIGNED IN OTHER VENDOR SYSTEM 06/24/2018 | |Reported by: Gerardo Goldman MD | | | |Electronically signed by: Gerardo Goldman MD | | | |Transcribed Date/Time: 06/24/2018 16:00 | |Telephone Operators Supervisor: FLUENCY | | | | | | | + + + +---------+ + + | Performing | Address | City/State/Zipcode | Phone Number | | Organization | | | | + +---------+ + + | [facility] | | | | | RADIOLOGY | | | | + +---------+ + + X-RAY ARTHROGRAM SHOULDER LT W/INJECTION (06/23/2018 2:18 PM PDT) + + | Specimen | + + | | + + + + + | Narrative | Performed At | + + + | [address] [place] [address] | [facility] | | [place] [address] DEPARTMENT OF | | [phone] Name: SHANKAR MANN Phys: | RADIOLOGY | | MARCELLEVANGELIST : 1970 Sex: M CSN: | | | MR# [id number] Exam Date: 06/23/2018 EXAM: | | | FLUOROSCOPIC GUIDED INJECTION OF THE RIGHT SHOULDER CLINICAL | | | HISTORY: Right shoulder pain COMPARISON: None TECHNIQUE: | | | The right shoulder was prepped and draped in the usual sterile | | | fashion. With the right arm in external rotation, a 23 gauge needle | | | was advanced into the right glenohumeral joint in the region of the | | | rotator interval. A small amount of sterile Omnipaque-300 was | | | injected to document in the intra-articular location of the needle. | | | Under intermittent fluoroscopic observation, approximately 12 cc of a | | | dilute mixture of sterile gadolinium was injected into the | | | glenohumeral joint. The patient tolerated the procedure without | | | immediate post procedure complication. FINDINGS: Fluoroscopic | | | guided injection of the right shoulder. Fluoroscopic time: 0.4 | | | min. IMPRESSION: Fluoroscopic guided injection of the right | | | shoulder joint. The patient tolerated the procedure without | | | immediate postprocedure complication. REPORT SIGNED IN | | | OTHER VENDOR SYSTEM 06/23/2018 Reported by: Ilan Pitts MD | | | Electronically signed by: Ilan Pitts MD Transcribed Date/Time: | | | 06/23/2018 16:26 Telephone Operators Supervisor: FLUENCY | | + + + + + | Procedure Note | + + | Interface, Radiology Results - 06/23/2018 4:30 PM PDT [address] | [address], [place] [address] | | Name: SHANKAR MANN Phys: EVANGELIST CURTIS : 1970 Sex: M | | CSN: MR# [id number] Exam Date: 06/23/2018 EXAM:FLUOROSCOPIC GUIDED INJECTION | | OF THE RIGHT SHOULDER CLINICAL HISTORY:Right shoulder pain COMPARISON:None | | TECHNIQUE:The right shoulder was prepped and draped in the usual sterilefashion. With | | the right arm in external rotation, a 23 gauge needlewas advanced into the right | | glenohumeral joint in the region of therotator interval. A small amount of sterile | | Omnipaque-300 wasinjected to document in the intra-articular location of the | | needle.Under intermittent fluoroscopic observation, approximately 12 cc of adilute | | mixture of sterile gadolinium was injected into theglenohumeral joint. The patient | | tolerated the procedure withoutimmediate post procedure complication. | | FINDINGS:Fluoroscopic guided injection of the right shoulder. Fluoroscopic time: 0.4 | | min. IMPRESSION:Fluoroscopic guided injection of the right shoulder joint. Thepatient | | tolerated the procedure without immediate postprocedurecomplication. REPORT SIGNED | | IN OTHER VENDOR SYSTEM 06/23/2018 Reported by: Ilan Pitts MD Electronically signed | | by: Ilan Pitts MD Transcribed Date/Time: 06/23/2018 16:26Transcriptionist: FLUENCY | | | |COMPARISON: | |None | | | |TECHNIQUE: | |The right shoulder was prepped and draped in the usual sterile | |fashion. With the right arm in external rotation, a 23 gauge needle | |was advanced into the right glenohumeral joint in the region of the | |rotator interval. A small amount of sterile Omnipaque-300 was | |injected to document in the intra-articular location of the needle. | |Under intermittent fluoroscopic observation, approximately 12 cc of a | |dilute mixture of sterile gadolinium was injected into the | |glenohumeral joint. The patient tolerated the procedure without | |immediate post procedure complication. | | | |FINDINGS: | |Fluoroscopic guided injection of the right shoulder. | | | |Fluoroscopic time: 0.4 min. | | | |IMPRESSION: | |Fluoroscopic guided injection of the right shoulder joint. The | |patient tolerated the procedure without immediate postprocedure | |complication. | | | | | | REPORT SIGNED IN OTHER VENDOR SYSTEM 06/23/2018 | |Reported by: Ilan Pitts MD | | | |Electronically signed by: Ilan Pitts MD | | | |Transcribed Date/Time: 06/23/2018 16:26 | |Telephone Operators Supervisor: FLUENCY | | | | | | [...] + | Diagnosis | + + | Arthritis of left acromioclavicular joint - Primary | + + | Tear of left rotator cuff, unspecified tear extent | + + documented in this encounter"
--- OUTSIDE RECORDS SUMMARY | ~2019-11-02 | XMS | Encounter Summary ---
Demographics + + + | Address | [address] | | | [place] [address] | + + + | Home Phone | | + + + | Preferred Language | Unknown | + + + | Marital Status | | + + + | Christianity Affiliation | CAT | + + + | Race | Unknown | + + + | Ethnic Group | or | + + + Author + + + | Author | [facility] | + + + | Organization | [facility] | + + + | Address | Unknown | + + + | Phone | Unavailable | + + + Support + + + + + | Name | Relationship | Address | Phone | + + + + + | Bernadette Chino | ECON | [address] | | | [place] | | [place] [address] | | + + + + + Care Team Providers + +------+ + | Care Ship'S Cook Name | Role | Phone | + +------+ + | Sherley Mora | PCP | | + +------+ + Encounter Details +--------+ + + + + | Date | Type | Department | Care Team | Description | +--------+ + + + + | 08/22/ | Procedure | [facility] | | | | 2016 | Pass | [facility] [address] | | | | | | [place] | | | | | | [address] | | | +--------+ + + + [...]
--- OUTSIDE RECORDS SUMMARY | ~2019-11-02 | XMS | Encounter Summary ---
Demographics + + + | Address | [address] | | | [place] [address] | + + + | Home Phone | | + + + | Preferred Language | Unknown | + + + | Marital Status | | + + + | Adventist Affiliation | CAT | + + + | Race | Unknown | + + + | Ethnic Group | or | + + + Author + + + | Organization | Unknown | + + + | Address | Unknown | + + + | Phone | Unavailable | + + + Support + + + + + | Name | Relationship | Address | Phone | + + + + + | Bernadette Chino | ECON | [address] | | | [place] | | [place] [address] | | + + + + + Care Team Providers + +------+ + | Care Button Facing Machine Operator Name | Role | Phone | + +------+ + | JuniduaneSherley SHOE PULLER | PCP | | + +------+ + Encounter Details +--------+--------+ + + + | Date | Type | Department | Care Team | Description | +--------+--------+ + + + | 1010/ | Travel | | | | | 2019 | | | | | +--------+--------+ + + + Social History + +-------+ [...] +---------+ + | Yes | | | Very rare. | + + +---------+ + + + + | Sex Assigned at | Date Recorded | | | | + + + | Not on file | | + + + documented as of this encounter Plan of Treatment Not on filedocumented as of this encounter Visit Diagnoses Not on filedocumented in this encounter"
--- OUTSIDE RECORDS SUMMARY | ~2019-11-02 | XMS | Encounter Summary ---
Demographics + + + | Address | [facility] [address] | | | [place] [address] | + + + | Home Phone | | + + + | Preferred Language | Unknown | + + + | Marital Status | | + + + | Confucianism Affiliation | Unknown | + + + | Race | Unknown | + + + | Ethnic Group | or | + + + Author + + + | Author | [facility] | | | and [place] | + + + | Organization | [facility] | | [...] Team Providers + +------+ + | Care Glassware Verifier Name | Role | Phone | + +------+ + | Unknown, Doctor | PCP | | + +------+ + Encounter Details +--------+ + + + + | Date | Type | Department | Care Team | Description | +--------+ + + + + | 01/16/ | Documentati | [facility] | Pradip Servin, | | | 2019 | on | [facility] | [address] | | | | | MEDICINE JAIME | [place] [address] | | | | | [address] | [phone] | | | | | [place], [place] | | | | | | [address] | | | | | | [phone] | | | +--------+ + + + [...] | | | + +---+---+---+ + + + | Sex Assigned at | Date Recorded | | | | + + + | Not on file | | + + + documented as of this encounter Progress Nataliia Cao - 01/16/2019 11:59 PM PSTAuthorized shoulder sx cpt codes 28391, 2982 6, 76877. Claim# [id number] signed by Nataliia Mace at 02/09/2019 3:16 PM PSTdocumented in this encounter Plan of Treatment +--------+---------+ + + + | Date | Type | Specialty | Care Team | Description | +--------+---------+ + + + | 11/30/ | Office | Orthopedic Surgery | Pradip Servin, | | | 2019 | Visit | | [address] | | | | | | [place] [address] | | | | | | [phone] | | | | | | | | +--------+---------+ + + + documented as of this encounter Visit Diagnoses Not on filedocumented in this encounter"
--- OUTSIDE RECORDS SUMMARY | ~2019-11-02 | XMS | Encounter Summary ---
Demographics + + + | Address | [facility] [address] | | | [place] [address] | + + + | Home Phone | | + + + | Preferred Language | Unknown | + + + | Marital Status | | + + + | Jainism Affiliation | Unknown | + + + | Race | Unknown | + + + | Ethnic Group | or | + + + Author + + + | Author | [facility] | | | and [place] | + + + | Organization | [facility] | | [...] Team Providers + +------+ + | Care Tape Keller Operator Name | Role | Phone | + +------+ + | Unknown, Doctor | PCP | | + +------+ + Reason for Visit + +--------+ + | Reason | Onset | Comments | | | Date | | + +--------+ + | Medication Refill | 06/02/ | | | | 2020 | | + +--------+ + Encounter Details +--------+--------+ + + + | Date | Type | Department | Care Team | Description | +--------+--------+ + + + | 06/02/ | Refill | [facility] | Pradip Servin, | Medication Refill | | 2019 | | [facility] | [address] | | | | | MEDICINE JAIME | [place] [address] | | | | | [address] | [phone] | | | | | [place], [place] | | | | | | [address] | | | | | | [phone] | | | +--------+--------+ + + + [...] this encounter Miscellaneous Notes Telephone Encounter - Dana Gotti Cardroom Attendant - 06/03/2019 9:[address] Servin approvalElectronically signed by Dana Gotti Cardroom Attendant at 2019 9:17 AM PDTdocumented in this encounter Plan of Treatment +--------+---------+ + + + | Date | Type | Specialty | Care Team | Description | +--------+---------+ + + + | 11/30/ | Office | Orthopedic Surgery | Pradip Servin, | | | 2019 | Visit | | [address] | | | | | | [place] [address] | | | | | | [phone] | | | | | | | | +--------+---------+ + + + documented as of this encounter Visit Diagnoses Not on filedocumented in this encounter"
--- OUTSIDE RECORDS SUMMARY | ~2019-11-02 | XMS | Encounter Summary ---
Demographics + + + | Address | [address] | | | [place] [address] | + + + | Home Phone | | + + + | Preferred Language | Unknown | + + + | Marital Status | | + + + | Restorationism Affiliation | CAT | + + + | Race | Unknown | + + + | Ethnic Group | or | + + + Author + + + | Author | [facility] | + + + | Organization | [facility] | + + + | Address | Unknown | + + + | Phone | Unavailable | + + + Support + + + + + | Name | Relationship | Address | Phone | + + + + + | Bernadette Chino | ECON | [address] | | | [place] | | [place] [address] | | + + + + + Care Team Providers + +------+ + | Care Dull Coat Mill Operator Name | Role | Phone | + +------+ + | No Pcp Per Patient | PCP | Unavailable | + +------+ + Encounter Details +--------+ + + + + | Date | Type | Department | Care Team | Description | +--------+ + + + + | 07/12/ | Documentati | [facility] | Nilson Rayomnd RCP | | | 2016 | on | Medical Clinic - | [address] | | | | | Sleep Medicine [address] | [place] | | | | | [place] | [address] | | | | | [place] | | | | | | [address] | | | | | | [phone] | | | +--------+ + + + [...] Telephone Encounter - Nilson Raymond RCP - 07/13/2015 9:00 AM PDTSpoke to patient via phone an d he said he felt like the pressure was inadequate. His machine is set at 5 - 15 and his 95% pressure is 12.8. He said his previous machine was set at 10. So, I adjusted his min. press ure to 9 and I will check back in 1 week.Electronically signed by Nilson Raymond RCP at 9:00 AM PDTdocumented in this encounter Plan of Treatment Not on filedocumented as of this encounter Visit Diagnoses Not on filedocumented in this encounter"
--- OUTSIDE RECORDS SUMMARY | ~2019-11-02 | XMS | Encounter Summary ---
Demographics + + + | Address | [address] | | | [place] [address] | + + + | Home Phone | | + + + | Preferred Language | Unknown | + + + | Marital Status | | + + + | Sabianist Affiliation | CAT | + + + | Race | Unknown | + + + | Ethnic Group | or | + + + Author + + + | Author | [facility] | + + + | Organization | [facility] | + + + | Address | Unknown | + + + | Phone | Unavailable | + + + Support + + + + + | Name | Relationship | Address | Phone | + + + + + | Bernadette Chino | ECON | [address] | | | [place] | | [place] [address] | | + + + + + Care Team Providers + +------+ + | Care Ladle Filler Name | Role | Phone | + +------+ + | Gilbertmartylalo Mayda Quinn ALMANZARP | PCP | | + +------+ + Reason for Visit + + + | Reason | Comments | + + + | Pre-Admission | | + + + Encounter Details +--------+ + + + + | Date | Type | Department | Care Team | Description | +--------+ + + + + | 08/21/ | PreAdmit | [facility] | Garrett Leong MD | Pre-Admission | | 2017 | Orders | [facility] [address] | [address] | | | | | [address] | [address], [place] | | | | | [place] | [address] | | | | | [address] | [phone] | | | | | [phone] | | | +--------+ + + + [...]
--- OUTSIDE RECORDS SUMMARY | ~2019-11-02 | XMS | Encounter Summary ---
Demographics + + + | Address | [facility] [address] | | | [place] [address] | + + + | Home Phone | | + + + | Preferred Language | Unknown | + + + | Marital Status | | + + + | Orthodoxy Affiliation | Unknown | + + + | Race | Unknown | + + + | Ethnic Group | or | + + + Author + + + | Author | [facility] | | | and [place] | + + + | Organization | [facility] | | | and [...] Team Providers + +------+ + | Care Analytical Scientist Name | Role | Phone | + +------+ + | Unknown, Doctor | PCP | | + +------+ + Reason for Visit Auth/Cert +--------+--------+ + + + + | Status | Reason | Specialty | Diagnoses / | Referred By | Referred To | | | | | Procedures | Contact | Contact | +--------+--------+ + + + + | | | | Diagnoses | | Gareth, | | | | | Tear of | | Pradip Garcia MD | | | | | rotator | | [address] | | | | | cuff, | | [address] [place], | | | | | unspecified | | [place] [address] | | | | | laterality, | | Phone: | | | | | unspecified | | [phone] | | | | | tear extent, | | Fax: | | | | | unspecified | | [phone] | | | | | whether | | | | | | | traumatic | | | | | | | Impingement | | | | | | | syndrome of | | | | | | | left | | | | | | | shoulder | | | | | | | region | | | | | | | Degenerative | | | | | | | tear of | | | | | | | glenoid | | | | | | | labrum, | | | | | | | unspecified | | | | | | | laterality | | | | | | | Procedures | | | | | | | MT SHLDR | | | | | | | ARTHROSCOP,E | | | | | | | XTEN DEBRIDE | | | | | | | MT | | | | | | | SHOULDER | | | | | | | SCOPE BONE | | | | | | | SHAVING MT | | | | | | | SHLDR | | | | | | | ARTHROSCOP,S | | | | | | | URG,W/ROTAT | | | | | | | CUFF REPR | | | | | | | LEFT | | | | | | | SHOULDER | | | | | | | ARTHROSCOPIC | | | | | | | ROTATOR | | | | | | | CUFF REPAIR, | | | | | | | | | | | | | | DEBRIDEMENT, | | | | | | | SUBACROMIAL | | | | | | | | | | | | | | DECOMPRESSIO | | | | | | | N | | | +--------+--------+ + + + + Encounter Details +--------+ + + + + | Date | Type | Department | Care Team | Description | +--------+ + + + + | 02/16/ | Hospital | [facility] | | Tear of rotator | | 2019 | [facility] | | cuff, unspecified | | | | [facility] | | laterality, | | | | OP [address] | | unspecified tear | | | | [place] | | extent, unspecified | | | | [address] | | whether traumatic; | | | | [phone] | | Impingement syndrome | | | | | | of left shoulder | | | | | | region; Degenerative | | | | | | tear of glenoid | | | | | | labrum, unspecified | | | | | | laterality | +--------+ + + + + Social [...] + + + | Blood Pressure | 130/78 | 02/16/2019 1:10 PM | | | | | PST | | + + + + + | Pulse | 64 | 02/16/2019 1:10 PM | | | | | PST | | + + + + + | Temperature | 36.2 C (97.1 F) | 02/16/2019 12:10 PM | | | | | PST | | + + + + + | Respiratory Rate | 18 | 02/16/2019 1:10 PM | | | | | PST | | + + + + + | Oxygen Saturation | 93% | 02/16/2019 1:10 PM | | | | | PST | | + + + + + | Inhaled Oxygen | - | - | | | Concentration | | | | + + + + + | Weight | 97.5 kg (215 lb) | 02/16/2019 9:20 AM | | | | | PST | | + + + + + | Height | 180.3 cm (5' 11") | 02/16/2019 9:20 AM | | | | | PST | | + + + + + | Body Mass Index | 29.99 | 02/16/2019 9:20 AM | | | | | PST | | + + + + + documented in this encounter Discharge Summaries Bakari Cantu PA - 02/16/2019 9:08 AM PSTFormatting of this note might be differen t from the original. Service: Orthopedic Surgery Brief Post-op Discharge Note DISCHARGE DIAGNOSES: @HPROBLR@ Procedures: Procedure(s) with comments: REPAIR TENDON BICEPS PROXIMAL ARTHROSCOPY SHOULDER - SAD,DEBRIDEMENT This patient was transferred to the recovery area post-operatively and has experienced no d ifficulties at the time of my assessment. The patient is anticipated to continue to meet di scharmarti criteria per protocol as assessed by nursing and may be discharged at that time with designated caregiver. Disposition: home Condition: Stable Code Status: No Order No discharge procedures on file. Follow up: Pradip Servin MD [address] [place] [address] [phone] Schedule an appointment as soon as possible for a visit in 1 week For suture removal, For wound re-check Discharge Medications New Medications Details ondansetron 4 mg disintegrating tablet Take 1 tablet by mouth 3 (three) times daily as needed for Nausea for up to 7 days. aka: ZOFRAN ODT oxyCODONE-acetaminophen 5-325 mg per tablet Take 1-2 tablets by mouth every 4 hours as needed for up to 4 days. aka: PERCOCET Unchanged Medications Details fish oil 1,000 mg capsule Take by mouth. gemfibrozil 600 mg tablet Take 600 mg by mouth 2 times daily (before meals). aka: LOPID tiZANidine 4 mg tablet Take 4 mg by mouth nightly. aka: JAMISON Celeste 02/16/2019 documented in th is encounter Discharge Instructions Instructions Ashley Glover RN - 02/16/2019Dr. Dino Servin MD Postoperative Instructions Shoulder Surgery Activity ? Your arm was placed in a sling immediately after surgery and should remain in the sling u nless instructed otherwise by Dr. Servin. o For rotator cuff/labral repairs you will likely be in the sling for 4-6 weeks. o Other surgeries may allow earlier sling removal (1-3 weeks). ? You should perform gentle pendulum range of motion exercises on the involved shoulder. o First remove the sling, lean forward and move the shoulder in gentle circular motions wit h your arm and hand relaxed. Try to perform 30 rotations clockwise as well as counterclockwi se 3 times per session. Repeat this regimen three times per day. ? Do not actively (on your own) lift your operative arm away from the side of your body or rotate it away from your body except to do your pendulum exercise until instructed by Dr. Evelyn buchanan. ? We recommend going through full range of motion exercises with your elbow, wrist and fing ers multiple times each day to increase circulation and prevent stiffness. ? You may do activities such as keyboards and writing at waist level. ? More detailed instructions/restrictions are provided on the physical therapy protocol. ? You should not drive or operate any machinery while taking any narcotic pain medication. o Once off pain medication you may return to drive if you feel safe. o We recommend practicing in a parking lot prior to returning to driving Exercise/Physical Therapy ? Follow the exercises outlined on the Postoperative Shoulder Exercises once you are able to tolerate. ? A specific physical therapy protocol will be provided at your followup appointment and ty pically should begin with 7 10 days following surgery. o We would recommend keeping a copy for yourself in addition to providing one to your thera pist. Pain Management/Medications ? We would recommend taking the pain medication provided as prescribed for the first 48 yaneth rs (2 pills every 4 hours). o Following the first couple days, use pain medication only as needed. o Most people remain on pain medication between 5 days to 4 weeks. o Avoid Tylenol (acetaminophen) when taking the pain medication as it is contained within t he pain medication o You may use NSAIDs (i.e. ibuprofen, aleve, advil, motrin, etc) for additional pain contro l. ? Nausea may be a side effect of the pain medication o A prescription for an anti-nausea medication will be provided within your surgical packet . o If you experience nausea, you may also call our office and we can provide a prescription for a different pain medication. ? Constipation is also a common side effect of the pain medication and may be treated with either Milk of Magnesia or Dulcolax pills or suppository, both of which can be obtained with out a prescription at a local pharmacy or most supermarkets. ? Placing a pillow behind your elbow when resting either reclined or flat generally helps w ith shoulder pain. Nerve Block ? Nerve Blocks are often used for pain management o When effective this will numb and decrease pain experienced in the knee. o These are performed by the anesthesiologist o If you received an anesthetic nerve block, anticipate a significant increase in pain 6 18 hours following surgery as the block wears off. o Continue taking the pain medication even if you received a nerve block. Antibiotics ? Antibiotics will be given during surgery ? Typically no antibiotics are necessary following your surgery Diet ? There are no restrictions however we recommend starting with clear liquids and gradually advancing to solid foods. Remember to drink plenty of fluids. ? No alcohol for at least 24 hours after surgery Dressing/Wound Care ? It is not uncommon to have a small amount of bloody drainage on the dressing within the f irst 48 hours after surgery. This typically does not require treatment and should not cause concern unless it is expanding. ? Keep your dressings clean and dry. ? You may remove your dressings and shower on the THIRD DAY after surgery. ? Do not submerge underwater (i.e. both, pool, hot tub) for 2 weeks after surgery. ? We would recommend icing your shoulder regularly following surgery for 20 minutes at a ti me ? Some bruising and swelling in the shoulder and even down into the arm and elbow is normal (due to gravity), the amount of which is highly variable. Follow-up ? You should plan to return for your first postoperative visit within 4 7 days after cho rgery. You should have been given an appointment prior to surgery however if not, please natalie ally Servin s office at [phone] to schedule an appointment. Emergency Care ? Contact Dr. Servin s office if you develop: o Severe pain o A large amount of bleeding o Cloudy or persistent drainage o Significant calk or thigh pain o A fever over 101.5o F o Numbness and/or tingling in your foot or leg that does not subside with dressing removal If you are unable to contact our office and have significant concerns, please go to a hospi jeff. Provision for after-hours and emergency care: If you have an emergency such as chest pain or shortness of breath please call . If you need the doctor after hours or on the weekends, please refer to the phone number bel ow. For [facility] offices located on [address] [place] [address] [address] [place] [address] please call . This will take you to an answering service, who will then get you in contact with a medical professional. BLOCK SHOULD LAST APPROX 18-20HRS DEPENDING ON THE PATIENT, START EXERCISES ONCE BLOCK WEAR S OFF. Provision for after-hours and emergency care: If you have an emergency such as chest pain or shortness of breath please call . If you need the doctor after hours or on the weekends, please refer to the phone number bel ow. For [facility] offices located on [address] [place] [address] [address] [place] [address] please call . This will take you to an answering service, who will then get you in contact with a medical professional. documented in this encounter Medications at Time of Discharge + + + +---------+ + + | Medication | Sig | Dispensed | Refills | Start | End Date | | | | | | Date | | + + + +---------+ + + | fish oil 1,000 mg | Take by mouth. | | 0 | | | | capsule | | | | | | + + + +---------+ + + | gemfibrozil | Take 600 mg by mouth | | 0 | | | | (LOPID) 600 mg | 2 times daily | | | | | | tablet | (before meals). | | | | | + + + +---------+ + + | ondansetron | Take 1 tablet by | 20 | 0 | 02/17/20 | | | (ZOFRAN ODT) 4 mg | mouth 3 (three) | tablet | | 19 | | | disintegrating | times daily as | | | | | | tablet | needed for Nausea | | | | | | | for up to 7 days. | | | | | + + + +---------+ + + | tiZANidine | Take 4 mg by mouth | | 0 | | | | (ZANAFLEX) 4 mg | nightly. | | | | | | tablet | | | | | | + + + +---------+ + + | | Take 1-2 tablets by | 30 | 0 | 02/17/20 | | | oxyCODONE-acetaminop | mouth every 4 hours | tablet | | 19 | 9 | | hen (PERCOCET) 5-325 | as needed for up to | | | | | | mg per tablet | 4 days. | | | | | + + + +---------+ + + documented as of this encounter H&P Notes Pradip Servin MD - 02/16/2019 9:08 AM PSTFormatting of this note might be different fro m the original. [facility] Service: Orthopedic Surgery History and Physical Exam Chief complaint: Left shoulder pain Subjective: Shankar Duffy is a pleasant 48 y.o. year old male who presents complaining of lef t shoulder pain which began on November 25, 2018. He states he was pulling a tarp over arron e sand and the rope broke causing him to fall approximately 8 feet onto his left shoulder. Since that time he is continued to have a pain deep within the left shoulder which is consta nt and rated as a 4-5 out of 10. It is worse with particular motion particularly overhead a ctivity. He reports some loss of motion as well as instability and some numbness in his tri cep. He has previously done physical therapy and taken anti-inflammatories. He did have so me pain previously that in his shoulder in the past and had an injection in May 2018 which relieved his pain. Past Medical History: Past Medical History: Diagnosis Date Anesthesia 01/28/2019 PT. STATES ANXIETY ABOUT UPCOMING SHOULDER PROCEDURE. Hyperlipidemia PONV (postoperative nausea and vomiting) PATIENT HAS NOT TRIED SCOPOLAMINE PATCH Sleep apnea USES CPAP / SETTIN- Past Surgical History: Past Surgical History: Procedure Laterality Date INNER EAR SURGERY 2008 KNEE SURGERY Right 2013 SINUS SURGERY 2002 Medications: Current Outpatient Medications: fish oil 1,000 mg capsule, Take by mouth., Disp: , Rfl: gemfibrozil (LOPID) 600 mg tablet, Take 600 mg by mouth 2 times daily (before meals)., Disp: , Rfl: tiZANidine (ZANAFLEX) 4 mg tablet, Take 4 mg by mouth nightly., Disp: , Rfl: Current Facility-Administered Medications: ceFAZolin in dextrose (ANCEF) IVPB 2 g, 2 g, Intravenous, Prior to Incision, JAMISON Gustafson lactated ringers (LR) infusion, , Intravenous, Continuous, Rishabh Sosa MD, Last R ate: 30 mL/hr at 02/16/19 0940 midazolam (VERSED) 1 mg/mL injection 1-2 mg, 1-2 mg, Intravenous, Q1H PRN, Rishabh corral MD ropivacaine (NAROPIN) 5 mg/mL (0.5%) injection 30 mL, 30 mL, PERINEURAL, Once, Rishabh reilly MD Allergies: No Known Allergies Review of Systems: Review of Systems Constitutional: Positive for activity change. Musculoskeletal: Positive for neck pain and neck stiffness. Neurological: Positive for numbness. Psychiatric/Behavioral: Positive for sleep disturbance. All other systems reviewed and are negative. Objective: Vital Signs: BP (!) 185/94 | Pulse 72 | Temp 36.2 C (97.2 F) (Temporal) | Resp 16 | Ht 1.803 m ( 5' 11") | Wt 97.5 kg (215 lb) | SpO2 99% | BMI 29.99 kg/m @LASTENCHT@ @LASTENCWT@ Body mass index is 29.99 kg/m. Exam: Gen: No acute distress, pleasant and cooperative with examination. Alert and oriented. Head: Normocephalic, conjugate gaze Neck: Supple Resp: Clear unlabored breathing Cardiac: Palpable peripheral pulses Gait: Normal Left shoulder: Skin is intact without erythema, ecchymosis or edema. Anterior tenderness to palpation Range of motion, forward flexion 160 with pain Abduction 135 with pain Internal Rotation: L1 with pain Empty can test: 5/5 strength with pain Speeds Test: 5/5 strength with pain Del Real's test: 5/5 strength with pain External Rotation against resistance: 5/5 strength with pain Belly Press: 5/5 strength without pain Positive impingement Positive apprehension test Palpable Radial pulse Sensation intact to light touch. Imaging: MRI of the left shoulder done at [facility] on 12/26/2018 reports degenerative change of the AC joint with downward extending osteophytes. Full-thickness tear of the supr aspinatus tendon without retraction. Possible adjacent calcific tendinopathy. Presumed deg enerative change of the superior labrum. Assessment: Left shoulder full-thickness rotator cuff tear Plan: I previously reviewed the imaging with the patient and discussed his diagnosis. He does have a full-thickness rotator cuff tear of the supraspinatus. We discussed treatment options for him including both conservative and operative management. Given that he does christianson ve a traumatic full-thickness tear I would recommend operative management and we discussed a rthroscopic rotator cuff repair with subacromial decompression and debridement. We have prev iously discussed the details of surgery, and the perioperative and postoperative course incl uding the details of postoperative rehabilitation and recovery. Risks and benefits were als o discussed, including but not limited to, infection, bleeding, damage to surrounding tissue including neurovascular injury,fracture, or damage to cartilage or bone, leading to decreas ed sensation or function, continued or increased pain, hardware failure, instability,stiffne ss, weakness, failure of the repair to heal or reinjury, need for future procedure, DVT, PE, cardiac arrest, stroke, loss of life or limb. He expressed understanding, all questions we re satisfactorily addressed, and he wished to proceed. Pradip Servin MD has created this entry using [employer] Voice Recognition software a [email or web address] macros. The entry has been reviewed and there may still exist sound alike word err ors. documented in this en counter Nursing Notes Lacy Melton RN - 02/16/2019 9:08 AM PSTPrescription Rx and discharge information g iven to daughter at bedside, all questions answered. documented in this encounter Miscellaneous Notes Op Note - Pradip Servin MD - 02/16/2019 9:08 AM [facility] Service: Orthopedic Surgery Operative Note SURGEON: Mook Servin MD TANK FILLER: Shaun Cantu PA-C PREOPERATIVE DIAGNOSIS: Left Shoulder rotator cuff tear with impingement POSTOPERATIVE DIAGNOSIS: Left Shoulder partial-thickness rotator cuff tear with impingement Left shoulder partial rupture of the long biceps tendon PROCEDURES: 1. Left shoulder arthroscopic debridement, extensive 2. Left shoulder arthroscopic subacromial decompression 3. Left open biceps tenodesis ANESTHESIA: General. ESTIMATED BLOOD LOSS: Less than 10 mL. COMPLICATIONS: None. FINDINGS: Low-grade bursal sided tear of the supraspinatus tendon Rupture of the biceps tendon just distal to the superior labrum approximately 50% of the te ndon with INDICATIONS FOR PROCEDURE: Please see preoperative history and physical exam. PROCEDURE IN DETAIL: The left upper extremity was marked preoperatively and consent was reviewed with the patien t by me. The patient was then taken to operating room where they were transferred to the ope rating table where all bony prominences well-padded. They were securely fastened to table an d placed under anesthesia by anesthesia. They were then raised into a beachchair position wi th the head and neck securely fastened in a neutral position. The left upper extremity was t hen prepped and draped in normal, sterile fashion. A timeout was performed correct site, chau geon, and procedure identified. A standard posterior arthroscopic portal was then made with incision followed by insertion of a camera into glenohumeral joint. A standard anteromedial arthroscopic portal was then ma de under direct visualization with an 18-gauge needle followed by incision and insertion of a blunt trocar followed by a cannula. A probe was inserted and a diagnostic exam was perform ed of that shoulder. The biceps tendon was viewed and found to be torn just distal to the bi ceps tendon anchor and superior labrum. The tear accounted for approximately 50% of the ten don width. The superior labrum was was viewed as well and had some fraying but was intact. This was debrided with a shaver and electrocautery. The subscapularis tendon was intact. Th e anterior labrum was evaluated and found to be intact with mild fraying which was debrided with the shaver and electrocautery. The posterior labrum was found to be intact. There was no significant chondral injury or chondrosis to the glenoid or humeral head. The rotator cuf f was viewed and was intact without tearing or fraying on the articular side. We then proce eded with resection of the remainder of the biceps tendon with a biter. Following resection the biceps anchor stump was debrided with the shaver and electrocautery. The camera was then removed from the glenohumeral joint and reinserted in the subacromial s pace. A standard anterolateral arthroscopic portal was made under direct visualization with an 18-gauge needle followed by incision and insertion of a cannula. A shaver and electrocaut lucrecia were then used to resect the subacromial bursa. The rotator cuff was viewed and was fou nd to have some bursal sided tearing of the anterior supraspinatus. This was debrided with a shaver. The area was probed and the rotator cuff was found to be intact. The fraying and tearing was a low-grade tear therefore no repair was required. The acromion was then viewed and there was found to be some anterior hooking as well as inferior osteophytes on both the acromion and distal clavicle. These were both resected back with a bur. The AC joint was viewed and this was appropriately spaced. Documentation was then removed from the subacromi al space. Following removal of all instrumentation from the shoulder joint a 3 cm incision was made a long the anterior shoulder in line with the deltopectoral interval This was bluntly dissecte d down to the humerus and the bicipital groove was identified. Small incision was made in th e fascia covering the biceps tendon. The biceps tendon was then identified and a fiber loop was passed through the tendon at the appropriate position in a Krakw fashion. Following th is the suture ends were passed through an endo-button. A drill was then used to create a uni cortical hole to base of the bicipital groove. The Endobutton was then inserted and engaged on the cortex and tightened. A free needle was then used to pass one limb of the sutures mandi k through the tendon and this was then tied.The tenodesis was viewed and found to be well se cured and in appropriate position. Excess tendon and suture was then removed. The wound was then copiously irrigated and closed with 2-0 Vicryl. Following this all instrumentation was removed from glenohumeral joint. Incisions were then closed with nylon injected local anesthetic and dressed with Xeroform, 4 x 4's, ABDs, and Melinda razo tape. Patient was then placed in a shoulder immobilizer with a pillow. They were r eversed on anesthesia and transferred back to their hospital bed. They returned to the [facility] hospital very room in stable condition. All counts were correct. Pradip Servin MD 02/16/2019 11:58 AM Pradip Servin MD has created this entry using [employer] Voice Recognition software a [employer]. The entry has been reviewed and there may still exist sound alike word err ors. documented in this en counter Plan of Treatment +--------+---------+ + + + | Date | Type | Specialty | Care Team | Description | +--------+---------+ + + + | 11/30/ | Office | Orthopedic Surgery | Pradip Servin, | | | 2019 | Visit | | [address] [facility] | | | | | | [place] [address] | | | | | | [phone] | | | | | | | | +--------+---------+ + + + + +---------+--------+ + + | Name | Type | Priori | Associated Diagnoses | Order Schedule | | | | ty | | | + +---------+--------+ + + | STORED IMAGE | Imaging | Routin | | One time imaging One | | ANESTHESIA | | e | | time imaging for 1 | | | | | | Occurrences starting | | | | | | 02/16/2019 until | | | | | | 02/16/2019, 1 | | | | | | completed | + +---------+--------+ + + | STORED IMAGE | Imaging | Routin | | One time imaging One | | ORTHOPEDIC | | e | | time imaging for 1 | | | | | | Occurrences starting | | | | | | 02/16/2019 until | | | | | | 02/16/2019, 1 | | | | | | completed | + +---------+--------+ + + | STORED IMAGE | Imaging | Routin | | One time imaging One | | ORTHOPEDIC | | e | | time imaging for 1 | | | | | | Occurrences starting | | | | | | 02/16/2019 until | | | | | | 02/16/2019, 1 | | | | | | completed | + +---------+--------+ + + documented as of this encounter Procedures + +--------+ + + + | Procedure Name | Priori | Date/Time | Associated Diagnosis | Comments | | | ty | | | | + +--------+ + + + | ARTHROSCOPY SHOULDER | | 02/16/2019 | Tear of rotator | | | | | 10:35 AM | cuff, unspecified | | | | | PST | laterality, | | | | | | unspecified tear | | | | | | extent, unspecified | | | | | | whether traumatic | | | | | | Impingement syndrome | | | | | | of left shoulder | | | | | | region Degenerative | | | | | | tear of glenoid | | | | | | labrum, unspecified | | | | | | laterality | | + +--------+ + + + +---+--------+ | | Case | | | Notes | | | LEFT | | | | | | SHOULD | | | ER | | | ARTHRO | | | SCOPIC | | | | | | ROTATO | | | R CUFF | | | | | | REPAIR | | | , | | | DEBRID | | | EMENT, | | | | | | SUBACR | | | OMIAL | | | DECOMP | | | RESSIO | | | NARTHR | | | EX | | | NOTIFI | | | ED | +---+--------+ | | | | | Specia | | | l | | | Needs | | | | | | LNIART | | | HREX | | | NOTIFI | | | ED | +---+--------+ + +---+ + +---+ | REPAIR TENDON BICEPS | | 02/16/2019 | Tear of rotator | | | PROXIMAL | | 10:35 AM | cuff, unspecified | | | | | PST | laterality, | | | | | | unspecified tear | | | | | | extent, unspecified | | | | | | whether traumatic | | | | | | Impingement syndrome | | | | | | of left shoulder | | | | | | region Degenerative | | | | | | tear of glenoid | | | | | | labrum, unspecified | | | | | | laterality | | + +---+ + +---+ +---+--------+ | | Case | | | Notes | | | LEFT | | | | | | SHOULD | | | ER | | | ARTHRO | | | SCOPIC | | | | | | ROTATO | | | R CUFF | | | | | | REPAIR | | | , | | | DEBRID | | | EMENT, | | | | | | SUBACR | | | OMIAL | | | DECOMP | | | RESSIO | | | NARTHR | | | EX | | | NOTIFI | | | ED | +---+--------+ | | | | | Specia | | | l | | | Needs | | | | | | LNIART | | | HREX | | | NOTIFI | | | ED | +---+--------+ + +--------+ +---+ + | STORED IMAGE | Routin | 02/16/2019 | | Results for this | | ORTHOPEDIC | e | 10:24 AM | | procedure are in the | | | | PST | | results section. | + +--------+ +---+ + | STORED IMAGE | Routin | 02/16/2019 | | Results for this | | ORTHOPEDIC | e | 10:05 AM | | procedure are in the | | | | PST | | results section. | + +--------+ +---+ + | STORED IMAGE | Routin | 02/16/2019 | | Results for this | | ANESTHESIA | e | 9:15 AM | | procedure are in the | | | | PST | | results section. | + +--------+ +---+ + documented in this encounter Results STORED IMAGE ORTHOPEDIC (02/16/2019 10:24 AM PST) + + | Specimen | + + | | + + + + + | Narrative | Performed At | + + + | Stored images were created by an independent practitioner and were | [facility] | | not interpreted by a radiologist. Please refer to the procedural | | | note for any report or interpretation of these images done by the | | | ordering physician. | | + + + + +---------+ + + | Performing | Address | City/State/Zipcode | Phone Number | | Organization | | | | + +---------+ + + | [facility] | | | | + +---------+ + + STORED IMAGE ORTHOPEDIC (02/16/2019 10:05 AM PST) + + | Specimen | + + | | + + + + + | Narrative | Performed At | + + + | Stored images were created by an independent practitioner and were | [facility] | | not interpreted by a radiologist. Please refer to the procedural | | | note for any report or interpretation of these images done by the | | | ordering physician. | | + + + + +---------+ + + | Performing | Address | City/State/Zipcode | Phone Number | | Organization | | | | + +---------+ + + | [facility] | | | | + +---------+ + + STORED IMAGE ANESTHESIA (02/16/2019 9:15 AM PST) + + | Specimen | + + | | + + + + + | Narrative | Performed At | + + + | Stored images were created by an independent practitioner and were | [facility] | | not interpreted by a radiologist. Please refer to the procedural | | | note for any report or interpretation of these images done by the | | | ordering physician. | | + + + + +---------+ + + | Performing | Address | City/State/Zipcode | Phone Number | | Organization | | | | + +---------+ + + | [facility] | | | | + +---------+ + + documented in this encounter Visit Diagnoses + + | Diagnosis | + + | Tear of rotator cuff, unspecified laterality, unspecified tear extent, unspecified | | whether traumatic | + + | Impingement syndrome of left shoulder region | + + | Degenerative tear of glenoid labrum, unspecified laterality | + + documented in this encounter Admitting Diagnoses + + | Diagnosis | + + | Tear of rotator cuff, unspecified laterality, unspecified tear extent, unspecified | | whether traumatic | + + | Impingement syndrome of left shoulder region | + + | Degenerative tear of glenoid labrum, unspecified laterality | + + documented in this encounter Administered Medications + + + +------+------+------+ | Medication Order | MAR | Action | Dose | Rate | Site | | | Action | Date | | | | + + + +------+------+------+ | lactated ringers (LR) infusion | Continue | 02/17/20 | | | | | at 30 mL/hr, Intravenous, | d by | 19 10:41 | | | | | CONTINUOUS, Starting 02/16/19 | Anesthes | AM PST | | | | | at 0945, Pre-op | ia | | | | | + + + +------+------+------+ +---------+ +---+ +---+ | New Bag | 02/17/20 | | 30 mL/hr | | | | 19 9:40 | | | | | | AM PST | | | | +---------+ +---+ +---+ +---+---+ | | | +---+---+ + +-------+ +------+---+---+ | midazolam (VERSED) 1 mg/mL | Given | 02/17/20 | 2 mg | | | | injection 1-2 mg 1-2 mg, | | 19 10:30 | | | | | Intravenous, EVERY 1 HOUR PRN, | | AM PST | | | | | Anxiety, Starting 02/16/19 at | | | | | | | 0915, Pre-op | | | | | | + +-------+ +------+---+---+ + +---+ | | | + +---+ | midazolam (VERSED) 1 mg/mL | | | injection Starting 02/16/19 | | | at 0947, For 1 dose, Neftali, | | | Stella: cabinet override, | | + +---+ | | | + +---+ + +-------+ + +---+---+ | oxyCODONE-acetaminophen | Given | 02/17/20 | 1 tablet | | | | (PERCOCET) 5-325 mg per tablet | | 19 1:02 | | | | | 1-2 tablet 1-2 tablet, Oral, | | PM PST | | | | | ONCE, 02/16/19 at 1315, For 1 | | | | | | | dose, PACU Phase of Case, | | | | | | | Post-op/Phase II | | | | | | + +-------+ + +---+---+ +---+---+ | | | +---+---+ documented in this encounter
--- OUTSIDE RECORDS SUMMARY | ~2019-11-02 | XMS | Encounter Summary ---
Demographics + + + | Address | [facility] [address] | | | [place] [address] | + + + | Home Phone | | + + + | Preferred Language | Unknown | + + + | Marital Status | | + + + | Buddhism Affiliation | Unknown | + + + | Race | Unknown | + + + | Ethnic Group | or | + + + Author + + + | Author | [facility] | | | and [place] | + + + | Organization | [facility] | | | [...] Team Providers + +------+ + | Care Employee Services Manager Name | Role | Phone | + +------+ + | Unknown, Doctor | PCP | | + +------+ + Encounter Details +--------+ + + + + | Date | Type | Department | Care Team | Description | +--------+ + + + + | 03/09/ | Documentati | [facility] | Pradip Servin, | | | 2018 | on | [facility] | [address] | | | | | MEDICINE JAIME | [place] [address] | | | | | [address] | [phone] | | | | | [place], [place] | | | | | | [address] | | | | | | [phone] | | | +--------+ + + + [...] documented as of this encounter Progress Notes Pradip Servin MD - 03/09/2019 7:24 AM PSTAPF completed for 02/25/19 visit documented in this encounter Plan of Treatment +--------+---------+ + + + | Date | Type | Specialty | Care Team | Description | +--------+---------+ + + + | 11/30/ | Office | Orthopedic Surgery | Pradip Servin, | | | 2020 | Visit | | [address] | | | | | | [place] [address] | | | | | | [phone] | | | | | | | | +--------+---------+ + + + documented as of this encounter Visit Diagnoses Not on filedocumented in this encounter"
--- OUTSIDE RECORDS SUMMARY | ~2019-11-02 | XMS | Encounter Summary ---
Demographics + + + | Address | [address] | | | [place] [address] | + + + | Home Phone | | + + + | Preferred Language | Unknown | + + + | Marital Status | | + + + | Gnosticism Affiliation | CAT | + + + | Race | Unknown | + + + | Ethnic Group | or | + + + Author + + + | Author | [facility] | + + + | Organization | [facility] | + + + | Address | Unknown | + + + | Phone | Unavailable | + + + Support + + + + + | Name | Relationship | Address | Phone | + + + + + | Bernadette Chino | ECON | [address] | | | [place] | | [place] [address] | | + + + + + Care Team Providers + +------+ + | Care Tire Shop Manager Name | Role | Phone | + +------+ + | Mayda Flores Quinn ALMANZARP | PCP | | + +------+ + Encounter Details +--------+ + + + + | Date | Type | Department | Care Team | Description | +--------+ + + + + | 08/22/ | Hospital | Pathology at | | | | 2016 | Encounter | Medical Office | | | | | | Building [address] | | | | | | [place], | | | | | | [place] [address] | | | | | | [phone] | | | +--------+ + + + [...] + + +---------+ + + | Fish Oil-[place]-3 | Take by mouth two | | [...] | + +--------+ + + + | SURGICAL PATHOLOGY | Routin | 08/22/2016 | | Results for this | | | e | | | procedure are in the | | | | | | results section. | + +--------+ + + + documented in this encounter Results SURGICAL PATHOLOGY (08/22/2016) + + + + + + | Component | Value | Ref Range | Performed | Pathologist | | | | | At | Signature | + + + + + + | SURGICAL | SOURCE OF SPECIMEN:A | | [facility] | | | PATHOLOGY | Neck mass Final | | A MEDICAL | | | | Pathologic | | CENTER | | | | Diagnosis:Neck mass, | | | | | | excision: - LIPOMA | | | | | | Clinical | | | | | | History:Mass in neck | | | | | | (R22.1). Gross | | | | | | Description:Received in | | | | | | formalin and labeled | | | | | | with the patient's | | | | | | identifyinginformation, | | | | | | "neck mass," is a large | | | | | | fragment of | | | | | | yellowish-orange | | | | | | adiposetissue measuring | | | | | | 5.5 x 4.7 x 3.1 cm. | | | | | | The fragment is | | | | | | bisected | | | | | | revealingunremarkable | | | | | | yellow fatty tissue | | | | | | grossly consistent with | | | | | | lipoma.Cloud Operations Engineer | | | | | | sections submitted in | | | | | | one cassette. HH/rle | | | | | | Microscopic | | | | | | Description:Microscopic | | | | | | examination performed by | | | | | | Ovidio Steiner MD. | | | | | | CPT Code(s): 18298 | | | | | | My electronic | | | | | | signature indicates that | | | | | | I have personally | | | | | | reviewed alldiagnostic | | | | | | slides, the gross and/or | | | | | | microscopic portion of | | | | | | thisreport and | | | | | | formulated the final | | | | | | diagnosis. | | | | | | Rendering Diagnostician: | | | | | | Ovidio Steiner | | | | | | JenniferPathologistLuisi | | | | | | alexa Signed 08/24/2016 | | | | | | 5:15PM | | | | + + + + + + + + | Specimen | + + | | + + + + + + + | Performing | Address | City/State/Zipcode | Phone Number | | Organization | | | | + + + + + | [place] | | [place] | [phone] | | [facility] | [facility] | [address] | | + + + + + documented in this encounter Visit Diagnoses Not on filedocumented in this encounter
--- OUTSIDE RECORDS SUMMARY | ~2019-11-02 | XMS | Encounter Summary ---
Demographics + + + | Address | [address] | | | [place] [address] | + + + | Home Phone [...] | | [place] | | [place] [address] | | + + + + + Care Team Providers + +------+ + | Care Creative Services Designer Name | Role | Phone | + +------+ + PCP | Unavailable | + +------+ + Encounter Details +--------+ + + + + | Date | Type | Department | Care Team | Description | +--------+ + + + + | 12/08/ | Procedure - | [facility] | Fabrizio Moncada | Operative Report | | 2012 | | [address] | MD Melinda [place] | | | | Transcribed | [place] | Orthopedics The | | | | | [address] | [address] | | | | | | St [place], [place] | | | | | | [address] | | | | | | | [...] + + documented as of this encounter Procedure Notes Fabrizio Moncaad MD - 12/08/2012 10:50 AM PDTAssociated Order(s): [facility] RE[facility] OF OPERATION [address] [place] [address] JUSTIN DISLA DATE OF OPERATION: 12/08/2012 SURGEON: Fabrizio Moncada M.D. ANESTHESIOLOGIST: Guanako Dejesus M.D. PREOPERATIVE DIAGNOSIS: Right knee medial meniscal tear. POSTOPERATIVE DIAGNOSIS: Right knee medial meniscal tear. PROCEDURE: Right knee arthroscopic partial medial meniscectomy. ANESTHESIA: General. BLOOD LOSS: Minimal. COMPLICATIONS: None. PREOPERATIVE ANTIBIOTICS: Given. TOURNIQUET TIME: Ten (10) minutes. DESCRIPTION OF PROCEDURE: The patient was properly identified, the operative site initialed, then taken to the operative suite and given general anesthetic and preoperative antibiotics. A tourniquet was placed high on the right thigh and the right knee was prepped and draped sterilely. After exsanguination with an Esmarch tourniquet, the tourniquet was elevated to 300 mmHg and has been held. A standard lateral arthroscopy portal was established and we inserted the camera into the medial compartment where, under direct visualization, a medial portal was established. On inspection of the knee joint, we noted a parrot-beak tear to the medial compartment with a retained attachment at the posterior horn. It was torn from the 12-to-3-o'clock position. The remainder of the knee was inspected and was pristine. We turned our attention back to the medial compartment, where a partial medial meniscectomy was performed utilizing a combination of biters and oscillating shaver to recontour and balance the remaining meniscus back to a stable rim, really 50% thickness between the 12 and the 3 o'clock positions, and then tapered back to full thickness from 3 to 6. We then purged the fluid and debris, injected with local anesthetic, closed our portals with Mastisol and Steri-Strips. A sterile dressing was applied, the tourniquet let down, the patient awakened and taken to recovery in stable condition. JUSTIN DISLA [id number] : 70 [id number] ADMIT DATE: /Imani /[id number] Electronically Signed 12/08/12 1337 MD NIGHAT Tee LUIS L [id number] : 70 [id number] ADMIT DATE: do cumented in this encounter Plan of Treatment Not on filedocumented as of this encounter Procedures + +--------+ + + + | Procedure Name | Priori | Date/Time | Associated Diagnosis | Comments | | | ty | | | | + +--------+ + + + | OPERATION RECORD | | 12/08/2012 | | Results for this | | | | 7:20 AM | | procedure are in the | | | | PDT | | results section. | + +--------+ + + + documented in this encounter Results OPERATION RECORD (12/08/2012 7:20 AM PDT) + + | Transcriptions | + + | 12/08/2012 10:50 AM PDT [facility] | | REPORT OF [id number] [place] [address] | | JUSTIN DISLA OF OPERATION: 12/08/2012SURGEON: Fabrizio Moncada | | JenniferANESTHESIOLOGIST: Guanako Dejesus M.D.PREOPERATIVE DIAGNOSIS: Right knee medial | | meniscal tear.POSTOPERATIVE DIAGNOSIS: Right knee medial meniscal tear.PROCEDURE: | | Right knee arthroscopic partial medial meniscectomy.ANESTHESIA: General.BLOOD LOSS: | | Minimal.COMPLICATIONS: None.PREOPERATIVE ANTIBIOTICS: Given.TOURNIQUET TIME: Ten (10) | | minutes.DESCRIPTION OF PROCEDURE: The patient was properly identified, the operative | | siteinitialed, then taken to the operative suite and given general anesthetic | | andpreoperative antibiotics. A tourniquet was placed high on the right thigh and | | theright knee was prepped and draped sterilely. After exsanguination with an | | Esmarchtourniquet, the tourniquet was elevated to 300 mmHg and has been held. A | | standardlateral arthroscopy portal was established and we inserted the camera into | | themedial compartment where, under direct visualization, a medial portal wasestablished. | | On inspection of the knee joint, we noted a parrot-beak tear to themedial compartment | | with a retained attachment at the posterior horn. It was tornfrom the 12-to-3-o'clock | | position. The remainder of the knee was inspected and waspristine. We turned our | | attention back to the medial compartment, where a partialmedial meniscectomy was | | performed utilizing a combination of biters and oscillatingshaver to recontour and | | balance the remaining meniscus back to a stable rim, [id number]% thickness between the 12 | | and the 3 o'clock positions, and then tapered back tofull thickness from 3 to 6. We | | then purged the fluid and debris, injected withlocal anesthetic, closed our portals with | | Mastisol and Steri-Strips. A steriledressing was applied, the tourniquet let down, the | | patient awakened and taken torecovery in stable condition.JUSTIN DISLA [id number] : | | 04/30/[id number] DATE:/MedQDD: 12/08/2012 09:52:37DT: 12/08/2012 10:44:27Job | | #: [id number] Signed 12/08/12 | | 1337 | | | | | | | | | | | | | | Fabrizio | | INES MoncadaJUSTIN [id number] : [id number] DATE: | |lateral arthroscopy portal was established and we inserted the camera into the | |medial compartment where, under direct visualization, a medial portal was | |established. On inspection of the knee joint, we noted a parrot-beak tear to the | |medial compartment with a retained attachment at the posterior horn. It was torn | |from the 12-to-3-o'clock position. The remainder of the knee was inspected and was | |pristine. We turned our attention back to the medial compartment, where a partial | |medial meniscectomy was performed utilizing a combination of biters and oscillating | |shaver to recontour and balance the remaining meniscus back to a stable rim, really | |50% thickness between the 12 and the 3 o'clock positions, and then tapered back to | |full thickness from 3 to 6. We then purged the fluid and debris, injected with | |local anesthetic, closed our portals with Mastisol and Steri-Strips. A sterile | |dressing was applied, the tourniquet let down, the patient awakened and taken to | |recovery in stable condition. | | | | | | | | | | | | | | | | | |JUSTIN DISLA | |[id number] : 70 | |[id number] | |ADMIT DATE: | | | | | |GS/MedQ | | | | | | /[id number] | |Electronically Signed 12/08/12 1337 | | | | | | Fabrizio Moncada MD | | | | | | | [...] | | | | | | | |DISLAJUSTIN APPLE Emelyn | |[id number] : 70 | |[id number] | |ADMIT DATE: | + + documented in this encounter Visit Diagnoses Not on filedocumented in this encounter"
--- OUTSIDE RECORDS SUMMARY | ~2019-11-02 | XMS | Encounter Summary ---
Demographics + + + | Address | [address] | | | [place] [address] | + + + | Home Phone | | + + + | Preferred Language | Unknown | + + + | Marital Status | | + + + | Adventism Affiliation | CAT | + + + | Race | Unknown | + + + | Ethnic Group | or | + + + Author + + + | Author | [facility] | + + + | Organization | [facility] | + + + | Address | Unknown | + + + | Phone | Unavailable | + + + Support + + + + + | Name | Relationship | Address | Phone | + + + + + | Bernadette Chino | ECON | [address] | | | [place] | | [place] [address] | | + + + + + Care Team Providers + +------+ + | Care Geography Faculty Member Name | Role | Phone | + +------+ + | Mayda Flores BMX RIDER | PCP | | + +------+ + [...] | | | | | SURGERY | [address] | [address] | | | | | SALES OPERATIONS | Phone: | Phone: | | | | | [facility] | [phone] | [phone] | | | | | LESN | Fax: | Fax: | | | | | NECK/CHEST,S | [phone] | [phone] | | | | | [facility] | | | | | | | EXC NECK LES | | | | | | | SC=3CM | | | +--------+--------+ + + + + Encounter Details +--------+ + + + + | Date | Type | Department | Care Team | Description | +--------+ + + + + | 08/22/ | Hospital | Same Day Surgery | Garrett Leong MD | | | 2016 | Encounter | at [facility] | [address], [place] | | | | | [address] | [address] [place] | | | | | [place] | [address] | | | | | [address] | [phone] | | | | | [phone] | | | +--------+ + + + [...] about "Lipoma: Care Instructions", log into your D[employer] account at [email or web address]. You can enter [id number] in the "[employer] Library" search box. Not on [employer]? Review the Easel Learnhart section of your After Visit Summary for directions on obdulio doran to sign up. Current as of: December 22, 2015 Content Version: 11.2 2603-7150 [employer]. Care instructions adapted under license by [facility] [employer] [place]. If you have questions about a medical condition or this instr uction, always ask your healthcare professional. [employer] disclaims any iram anty or liability for [...] + + +---------+ + + | Fish Oil-[place]-3 | Take by mouth two | | 0 | | | | Fatty Acids (FISH | times daily. | | | | | | OIL) 340-1,000 mg | | | | | | | oral capsule | | | | | | + + + +---------+ + + | gemfibrozil 600 mg | Take 600 mg by mouth | | 0 | 04/15/20 | | | oral tablet | two [...] Surgeon: Dang Anesthesia: | | | General DrKrysta Dejesus Findings: Large subcutaneous mass of the [...] in this encounter Administered Medications + +--------+ +---------+------+------+ | Medication Order | MAR | Action | Dose | Rate | Site | | | Action | Date | | | | + +--------+ +---------+------+------+ | HYDROcodone-acetaminophen | Given | 08/23/19 | [...] | | | | | + +--------+ +---------+------+------+ + +---+ | | | + +---+ [...] | | | injection 1 dose, Starting Sat | | | 08/22/16 at 1317, Until Sat | | | 08/22/16 at 1320 | [...] ONCE, 1 dose, | | | Starting 08/22/16 at 1040, | | | Until 08/22/16 at 1608 | | + +---+ | | | + +---+ | lidocaine PF (XYLOCAINE MPF) | | | injection intradermal, | | | PREPROCEDURE ONCE, 1 dose, | | | Starting 08/22/16 at 1040, | | | Until 08/22/16 at 1608 | | + +---+ | [...]
--- OUTSIDE RECORDS SUMMARY | ~2019-11-02 | XMS | Encounter Summary ---
Demographics + + + | Address | [address] | | | [place] [address] | + + + | Home Phone [...] | | [place] | | [place] [address] | | + + + + + Care Team Providers + +------+ + | Care Tours Hostess Name | Role | Phone | + +------+ + | Sherley MoraP | PCP | | + +------+ + Encounter Details +--------+ + + + + | Date | Type | Department | Care Team | Description | +--------+ + + + + | 04/04/ | Procedure | Diagnostic Imaging | | | | 2018 | Pass | [facility] | | | | | | [address] | | | | | | [place] | | | | | | [address] | | | | | | [phone] | | | +--------+ + + + [...]
--- OUTSIDE RECORDS SUMMARY | ~2019-11-02 | XMS | Encounter Summary ---
Demographics + + + | Address | [facility] [address] | | | [place] [address] | + + + | Home Phone | | + + + | Preferred Language | Unknown | + + + | Marital Status | | + + + | Roman Catholic Affiliation | Unknown | + + + | Race | Unknown | + + + | Ethnic Group | or | + + + Author + + + | Author | [facility] | | | and [place] | + + + | Organization | [facility] | | | [...] Team Providers + +------+ + | Care Water Plant Pump Operator Supervisor Name | Role | Phone | + +------+ + | Unknown, Doctor | PCP | | + +------+ + Reason for Visit +--------+--------+ + | Reason | Onset | Comments | | | Date | | +--------+--------+ + | Other | 10/28/ | | | | 2020 | | +--------+--------+ + Encounter Details +--------+ + + + + | Date | Type | Department | Care Team | Description | +--------+ + + + + | 10/28/ | Telephone | [facility] | Pradip Servin, | Other | | 2019 | | ORTHO SPORTS | MD [address] | | | | | MEDICINE JAIME | [place] [address] | | | | | [address] | [phone] | | | | | [place], [place] | | | | | | [address] | | | | | | [phone] | | | +--------+ + + + [...] this encounter Miscellaneous Notes Telephone Encounter - Bebe Bustamante - 10/29/2019 8:54 AM Servin's patient ca lled and stated that [facility] and the Anasthesiologist needs to have his L&I informati on they are trying to bill him for services. I advised patient to called both services to gi ve them his L&I information, so they can resubmit zuly to L&I he understood.Electronical ly signed by Bebe Bustamante at 10/29/2019 8:56 AM PDTdocumented in this encounter Plan of Treatment +--------+---------+ + + + | Date | Type | Specialty | Care Team | Description | +--------+---------+ + + + | 11/30/ | Office | Orthopedic Surgery | Pradip Servin, | | | 2019 | Visit | | [address] | | | | | | [place] [address] | | | | | | [phone] | | | | | | | | +--------+---------+ + + + documented as of this encounter Visit Diagnoses Not on filedocumented in this encounter"
--- OUTSIDE RECORDS SUMMARY | ~2019-11-02 | XMS | Encounter Summary ---
Demographics + + + | Address | [facility] [address] | | | [place] [address] | + + + | Home Phone | | + + + | Preferred Language | Unknown | + + + | Marital Status | | + + + | Mormonism Affiliation | Unknown | + + + | Race | Unknown | + + + | Ethnic Group | or | + + + Author + + + | Author | [facility] | | | and [place] | + + + | Organization | [facility] | | [...] Team Providers + +------+ + | Care Otr Owner Operator Truck Driver Name | Role | Phone | + +------+ + | Unknown, Doctor | PCP | | + +------+ + Encounter Details +--------+ + + + + | Date | Type | Department | Care Team | Description | +--------+ + + + + | 02/16/ | Hospital | [facility] | Pradip Servin, | | | 2019 | Encounter | [facility]ENTER | MD [address] | | | | | [place] | [place] [address] | | | | | [place] [address] | [phone] | | | | | [place] | | | | | | [address] | | | | | | [phone] | | | +--------+ + + + [...] as of this encounter Plan of Treatment +--------+---------+ + + + | Date | Type | Specialty | Care Team | Description | +--------+---------+ + + + | 11/30/ | Office | Orthopedic Surgery | Pradip Servin, | | | 2019 | Visit | | [address] | | | | | | [place] [address] | | | | | | [phone] | | | | | | | | +--------+---------+ + + + documented as of this encounter Procedures + +--------+ + + + | Procedure Name | Priori | Date/Time | Associated Diagnosis | Comments | | | ty | | | | + +--------+ + + + | STORED IMAGE | Routin | 02/16/2019 | | Results for this | | ORTHOPEDIC | e | 10:24 AM | | procedure are in the | | | | PST | | results section. | + +--------+ + + + documented in this encounter Results STORED [...]
--- OUTSIDE RECORDS SUMMARY | ~2019-11-02 | XMS | Clinical Summary ---
Demographics + + + | Address | [address] | | | [place] [address] | + + + | Home Phone | | + + + | Preferred Language | Unknown | + + + | Marital Status | | + + + | Mormon Affiliation | CAT | + + + | Race | Unknown | + + + | Ethnic Group | or | + + + Author + + + | Author | [facility] | + + + | Organization | [facility] | + + + | Address | Unknown | + + + | Phone | Unavailable | + + + Support + + + + + | Name | Relationship | Address | Phone | + + + + + | Bernadette Chino | ECON | [address] | | | [place] | | [place] [address] | | + + + + + Care Team Providers + +------+ + | Care Er Rn Name | Role | Phone | + +------+ + | Sherley MoraP | PCP | | + +------+ + Source Comments TAVIA is fully live on both [facility] Ambulatory and [facility] InPatient.[facility] Allergies No Known Allergies Medications + + + +---------+------+------+-------+ | Medication | Sig | Dispensed | Refills | Star | End | Statu | | | | | | t | Date | s | | | | | | Date | | | + + + +---------+------+------+-------+ | gemfibrozil 600 mg | Take 600 mg by mouth | | 0 | 04/1 | | Activ | | oral tablet | two times daily. | | | 5/20 | | e | | | | | | 16 | | | + + + +---------+------+------+-------+ | Fish Oil-Goldston-3 | Take by mouth two | | 0 | | | Activ | | Fatty Acids (FISH | times daily. | | | | | e | | OIL) 340-1,000 mg | | | | | | | | oral capsule | | | | | | | + + + +---------+------+------+-------+ | ERGOCALCIFEROL | Take by mouth. | | 0 | | | Activ | | (VITAMIN D2) | | | | | | e | | (VITAMIN D ORAL) | | | | | | | + + + +---------+------+------+-------+ | gabapentin 100 mg | 1-3 po qhs for nerve | 60 | 2 | 01/2 | | Activ | | oral capsule | pain | capsule | | 5/20 | | e | | | | | | 19 | | | + + + +---------+------+------+-------+ | diclofenac sodium | Take 1 tablet by | 60 | 5 | 03/1 | | Activ | | EC 75 mg oral | mouth two times | tablet | | 2/20 | | e | | tablet,delayed | daily. | | | 19 | | | | release | | | | | | | | (DR/EC)Indications: | | | | | | | | Arthritis of left | | | | | | | | acromioclavicular | | | | | | | | joint, Tear of left | | | | | | | | rotator cuff, | | | | | | | | unspecified tear | | | | | | | | extent | | | | | | | + + + +---------+------+------+-------+ Active Problems + + + | Problem | Noted Date | + + + | THONY (obstructive sleep apnea) | 06/30/2015 | + + + + + | Overview: PSG 03 02 2008 thatdemonstrated positional | | obstructive sleep apnea, moderate in supine, where | | theapnea-hypopnea index was 23, and mild non-supine, where the | | apnea-hypopnea neckswas 6.7. Overall apnea-hypopnea index was | | 13.4 per hour | + + Family History + + +------+ + | Medical History | Relation | Name | Comments | + + +------+ + | Cancer | Father | | | + + +------+ + | Diabetes | Mother | | | + + +------+ + | Stroke | Mother | | | + + +------+ + + +------+--------+ + | Relation | Name | Status | Comments | + +------+--------+ + | Father | | | | + +------+--------+ + | Mother | | | | + +------+--------+ + Social History + +-------+ +--------+------+ | [...] + + + | Blood Pressure | 144/88 | 12/18/2018 2:44 PM | | | | | PDT | | + + + + + | Pulse | 69 | 12/18/2018 2:44 PM | | | | | PDT [...] + | Oxygen Saturation | 97% | 12/18/2018 2:44 PM | | | | | PDT | | + + + + + | Inhaled Oxygen | - | - | | | Concentration | | | | + + + + + | Weight | 99.1 kg (218 lb 6.4 | 12/18/2018 2:44 PM | Dressed with shoes. | | | oz) | PDT | | + + + + + | Height | 180.3 cm (5' 11") | 04/04/2018 3:50 PM | | | | | PST | | + + + + + | Body Mass Index | 30.46 | 04/04/2018 3:50 PM | | | | | PST | | + + + + + Plan of Treatment + + + + + | Health Maintenance | Due Date | Last | Comments | | | | Done | | + + + + + | Influenza (Flu) | | 12/08/19 | | | vaccination (#1) | 0 | 15, | | | | | 03/31/19 | | | | | 14, | | | | | 01/10/20 | | | | | 12, | | | | | Addition | | | | | al | | | | | history | | | | | exists | | + + + + + | Pneumococcal | Aged Out | | No longer eligible based on patient's age | | vaccination | | | to complete this topic | + + + + + Results Not on filefrom Last 3 Months Insurance + +--------+ +--------+ + +------+ | Payer | Benefi | Subscriber | Effect | Phone | Address | Type | | | t Plan | ID | aparna | | | | | | / | | Dates | | | | | | Group | | | | | | + +--------+ +--------+ + +------+ | BLUE CROSS BLUE | REGENC | [id number] | 06/13/19 | [phone] | [address] | PPO | | SHIELD | E [employer] | 5 | 18-Pre | 8 | 1106 | | | | | | sent | | [place], | | | | | | | | [place] | | | | | | | | [id number] | | + +--------+ +--------+ + +------+ + +--------+ +--------+ + + | Guarantor Name | Accoun | Relation to | Date | Phone | Billing Address | | | t Type | Patient | of | | | | | | | | | | + +--------+ +--------+ + + | Shankar El | Person | Self | [birth year] | [address] | | | al/Fam | | 1971 | [phone] | [place] [address] | | | shaggy | | | 2 (Home) | | + +--------+ +--------+ + +
--- OUTSIDE RECORDS SUMMARY | ~2019-11-02 | XMS | Encounter Summary ---
Demographics + + + | Address | [facility] [address] | | | [place] [address] | + + + | Home Phone | | + + + | Preferred Language | Unknown | + + + | Marital Status | | + + + | Judaism Affiliation | Unknown | + + + | Race | Unknown | + + + | Ethnic Group | or | + + + Author + + + | Author | [facility] | | | and [place] | + + + | Organization | [facility] | | | [...] Team Providers + +------+ + | Care Press Operator Carbon Products Name | Role | Phone | + +------+ + | Unknown, Doctor | PCP | | + +------+ + Reason for Visit + +--------+ + | Reason | Onset | Comments | | | Date | | + +--------+ + | Screening For | 10/04/ | | | Communicable Disease | 2020 | | + +--------+ + Encounter Details +--------+ + + + + | Date | Type | Department | Care Team | Description | +--------+ + + + + | 10/04/ | Telephone | [facility] | Pradip Servin, | Screening For | | 2019 | | ORTHO SPORTS | [address] | Communicable Disease | | | | MEDICINE [place] | [place] [address] | | | | | [address] | [phone] | | | | | [place], [place] | | | | | | [address] | | | | | | [phone] | | | +--------+ + + + [...] documented as of this encounter Progress Notes Alisa Tsai, Credit Control Clerk - 10/05/2019 9:57 AM PDTProactive screening for upcoming office visit to help ensure the clinic environment remains a safe place to receive care. Patient (or visitor as allowed per policy) reports the following symptoms and/or exposure o n the epidemic risk screen: Fever greater than 100.4 F?: no New onset (within the last 14 days) cough?: no New onset (within the last 14 days) shortness of breath?: no New onset (within the last 14 days) loss of taste or smell?: no New onset (within the last 14 days) sore throat?: no New onset (within the last 14 days) chills: no New onset (within the last 14 days) muscle aches: no Close contact with someone who has been diagnosed with COVID-19?: no The patient reported no symptoms or exposure and proceeded with proactive screening process . 2. Have you (or visitor as allowed per policy) with been tested for COVID-19?: No. Okay t o see patient in clinic per scheduling guidelines, proceeded to question #3 If YES, answer the following questions: Were you tested for COVID-19 for pre-procedure and have no symptoms? (If YES, proceed to q uestion 3) Has it been ten days since your symptoms first started?: Have you been fever free for three days without taking fever reducing medications?: Have you experienced at least three days of improvement in your respiratory symptoms (e.g. cough, shortness of breath)?: Can patient be seen in clinic?: . 3. Does the patient have MyChart Access?: Yes. Encouraged use of the E-Check In feature. Please be aware that you will be asked these same questions when you arrive at the clinic. If you have any changes in your symptoms between now and your visit, please call us so we c an get you scheduled for an alternative visit before you arrive at the clinic. Following [facility] guidelines, masking is required when you receive care at a [facility] site. If you are unable to wear a mask for medical reasons, alternative visit opti ons are available. Hand washing is sampson to keeping our clinic a safe place to receive care. While you are in r clinics you will be asked to perform hand washing at different intervals throughout your v isit. While you are in the clinic 6ft distancing is required, please ensure you look for the 6ft floor markers and adhere to distancing. Visitor restrictions remain in place following CDC guidance. Only minimal exceptions will be allowed. If you arrive with a visitor they may be asked to wait in the car during your v isit. We reserve the right to deny entrance to patients or visitors who refuse to comply with the above safety precautions. Electronically signed by Alisa Tsai Credit Control Clerk at 09/09 9:58 AM PDTdocumented in this encounter Miscellaneous Notes Telephone Encounter - Alisa Tsai Credit Control Clerk - 10/05/2019 9:55 AM PDTScreening D one docume nted in this encounter Plan of Treatment +--------+---------+ + + + | Date | Type | Specialty | Care Team | Description | +--------+---------+ + + + | 11/30/ | Office | Orthopedic Surgery | Pradip Servin, | | 2019 | Visit | | [address] | | | | | | [place] [address] | | | | | | [phone] | | | | | | | | +--------+---------+ + + + documented as of this encounter Visit Diagnoses Not on filedocumented in this encounter"
--- OUTSIDE RECORDS SUMMARY | ~2019-11-02 | XMS | Encounter Summary ---
Demographics + + + | Address | [address] | | | [place] [address] | + + + | Home Phone | | + + + | Preferred Language | Unknown | + + + | Marital Status | | + + + | Quaker Affiliation | CAT | + + + | Race | Unknown | + + + | Ethnic Group | or | + + + Author + + + | Author | [facility] | + + + | Organization | [facility] | + + + | Address | Unknown | + + + | Phone | Unavailable | + + + Support + + + + + | Name | Relationship | Address | Phone | + + + + + | Bernadette Chino | ECON | [address] | | | [place] | | [place] [address] | | + + + + + Care Team Providers + +------+ + | Care Condemnation Engineer Name | Role | Phone | + +------+ + | Mayda Flores DIRECTOR DENTAL SERVICES | PCP | | + +------+ + Reason for Visit + + + | Reason | Comments | + + + | THONY - obstructive | | | Sleep Apnea | | + + + Encounter Details +--------+---------+ + + + | Date | Type | Department | Care Team | Description | +--------+---------+ + + + | 11/28/ | Office | Sleep Medicine at | Garrett Yen, | THONY (obstructive | | 2016 | Visit | [facility] [address] | sleep apnea) | | | | [address] | Blvd [place], [place] | (Primary Dx) | | | | [place], [place] | [address] | | | | | [address] | [phone] | | | | | [phone] | | | +--------+---------+ + + + [...] + + + | Blood Pressure | 122/80 | 11/29/2015 8:49 AM | | | | | PDT | | + + + + + | Pulse | 54 | 11/29/2015 8:49 AM | | | | | PDT | | + + + + + | Temperature | - | - | | + + + + + | Respiratory Rate | - | - | | + + + + + | Oxygen Saturation | 95% | 11/29/2015 8:49 AM | | | | | PDT | | + + + + + | Inhaled Oxygen | - | - | | | Concentration | | | | + + + + + | Weight | 101.6 kg (224 lb) | 11/29/2015 8:49 AM | | | | | PDT | | + + + + + | Height | - | - | | + + + + + | Body Mass Index | 31.24 | 06/30/2015 2:39 PM | | | | | PDT | | + + + + + documented in this encounter Patient Instructions Patient Instructions Garrett Yen MD - 11/29/2015 8:50 AM PDT1. THONY (obstructive sleep apnea) Mild, positional by sleep study. The sleep apnea is well controlled with adequate use of the CPAP machine, appropriate reduc tion in the apnea hypopnea index and good symptom control. --No setting changes needed on PAP device. --Need new interface and humidifier check today. Contact my office if there is a recurrence of symptoms, especially if there is symptomati c sleepiness impairing safety with driving (or operating other machinery), or an inability t o use PAP device regularly. Drowsiness and Driving For all drivers to [...] blinking, "zoning ou t", eyes unfocussing etc). overhead distribution engineer and rest/nap/consume caffeine and only resume driving [...] encounter Progress Notes Garrett Yen MD - 11/29/2015 8:44 AM PDTFormatting of this note might be different fro m the original. [facility] Patient Visit on 11/29/2015 with GARRETT YEN MD PCP is RITIKA Osborne Chief Complaint: Chief Complaint Patient presents with THONY - obstructive Sleep Apnea History of present illness Shankar Abdi is a 45 y.o. male who comes in follow up of his mild THONY. He has a new PAP machine that is working well for him. Mask is fitting "so-so" he will go to [facility] after this to try a new one. It dislodges when he turns. His humidifier is leaking he reports. Pressure feels adequate. He is sleeping very well he reports, without insomnia. During the daytime he remains improved. No trouble with excessive sleepiness. No MVA or c lose calls due to sleepiness or inattention. He has had no right ear pain, like with his old machine. He attributes this to the improv ed functionality of the new device. Expand All Collapse All Compliance Report Usage 08/17/2015 - 09/15/2015 Usage days 30/30 days (100%) >= 4 hours 30 days (100%) < 4 hours 0 days (0%) Usage hours 215 hours 32 minutes Average usage (total days) 7 hours 11 minutes Average usage (days used) 7 hours 11 minutes Median usage (days used) 7 hours 16 minutes AirSense 10 AutoSet Serial number [id number] Mode AutoSet Min Pressure 9 cmH2O Max Pressure 15 cmH2O EPR Fulltime EPR level 2 Therapy Pressure - cmH2O Median: 11.0 95th percentile: 13.6 Maximum: 14.5 Leaks - L/min Median: 0.3 95th percentile: 9.6 Maximum: 15.5 Events per hour AI: 0.4 HI: 0.1 AHI: 0.5 Apnea Index Central: 0.0 Obstructive: 0.4 Unknown: 0.0 RERA Index 0.0 Carlos A-Koroma respiration (average duration per night) 0 minutes (0%) Usage - hours Printed Review of Systems ROS Problem List Patient Active Problem List Diagnosis THONY (obstructive sleep apnea) Current Medications Current Outpatient Prescriptions Medication Sig azelastine 137 mcg (0.1 %) nasal aerosol,spray gemfibrozil 600 mg oral tablet VENTOLIN HFA 90 mcg/actuation inhalation HFA aerosol inhaler No current facility-administered medications for this visit. Past Medical History: No past medical history on file. History reviewed. No pertinent past surgical history. Vitals Filed Vitals: 11/29/2015 8:49 AM Weight: 101.606 kg (224 lb) BP: 122/80 Pulse: 54 SpO2: 95% BMI: 31.26 kg/(m^2)Estimated body mass index is 31.26 kg/(m^2) as calculated from the foll owing: Height as of 06/30/15: 1.803 m (5' 11"). Weight as of this encounter: 101.606 kg (224 lb). Physical Exam Physical Exam HENT: Ext nose normal. Cardiovascular: Normal rate, regular rhythm and normal heart sounds. Assessment and Plan 1. THONY (obstructive sleep apnea) Mild, positional by sleep study. The sleep apnea is well controlled with adequate use of the CPAP machine, appropriate reduc tion in the apnea hypopnea index and good symptom control. --No setting changes needed on PAP device. --Need new interface and humidifier check today. Contact my office if there is a recurrence of symptoms, especially if there is symptomati c sleepiness impairing safety with driving (or operating other machinery), or an inability t o use PAP device regularly. Drowsiness and Driving For all drivers to [...] blinking, "zoning ou t", eyes unfocussing etc). overhead distribution engineer and rest/nap/consume caffeine and only resume driving [...] and treat excessive sleepiness. Return in about 1 year (around 11/28/2016). Susan Escobedo MA - 11/29/2015 8:30 AM PDTCompliance Report Usage 08/17/2015 - 09/15/2015 Usage days 30/30 days (100%) >= 4 hours 30 days (100%) < 4 hours 0 days (0%) Usage hours 215 hours 32 minutes Average usage (total days) 7 hours 11 minutes Average usage (days used) 7 hours 11 minutes Median usage (days used) 7 hours 16 minutes AirSense 10 AutoSet Serial number [id number] Mode AutoSet Min Pressure 9 cmH2O Max Pressure 15 cmH2O EPR Fulltime EPR level 2 Therapy Pressure - cmH2O Median: 11.0 95th percentile: 13.6 Maximum: 14.5 Leaks - L/min Median: 0.3 95th percentile: 9.6 Maximum: 15.5 Events per hour AI: 0.4 HI: 0.1 AHI: 0.5 Apnea Index Central: 0.0 Obstructive: 0.4 Unknown: 0.0 RERA Index 0.0 Carlos A-Koroma respiration (average duration per night) 0 minutes (0%) Usage - hours Printed documented in this encounter Plan of Treatment Not on filedocumented as of this encounter Visit Diagnoses + + | Diagnosis | + + | THONY (obstructive sleep apnea) - Primary Obstructive sleep apnea (adult) (pediatric) | + + documented in this encounter
--- OUTSIDE RECORDS SUMMARY | ~2019-11-02 | XMS | Encounter Summary ---
Demographics + + + | Address | [address] | | | [place] [address] | + + + | Home Phone | | + + + | Preferred Language | Unknown | + + + | Marital Status | | + + + | Advent Affiliation | CAT | + + + | Race | Unknown | + + + | Ethnic Group | or | + + + Author + + + | Author | [facility] | + + + | Organization | [facility] | + + + | Address | Unknown | + + + | Phone | Unavailable | + + + Support + + + + + | Name | Relationship | Address | Phone | + + + + + | Bernadette Chino | ECON | [address] | | | [place] | | [place] [address] | | + + + + + Care Team Providers + +------+ + | Care Diesel Retrofit Installer Name | Role | Phone | + +------+ + | Anne-Marie Floresa Quinn ALMANZARP | PCP | | + +------+ + Encounter Details +--------+ + + + + | Date | Type | Department | Care Team | Description | +--------+ + + + + | 05/22/ | Document-Sc | Dermatology at | [facility] | | | 2017 | anned | [facility] | MD Kimberly | | | | | Clinic [address] | | | | | | [place] | | | | | | [address] | | | | | | [phone] | | | +--------+ + + + [...]
--- OUTSIDE RECORDS SUMMARY | ~2019-11-02 | XMS | Encounter Summary ---
Demographics + + + | Address | [facility] [address] | | | [place] [address] | + + + | Home Phone | | + + + | Preferred Language | Unknown | + + + | Marital Status | | + + + | Cheondoism Affiliation | Unknown | + + + | Race | Unknown | + + + | Ethnic Group | or | + + + Author + + + | Author | [facility] | | | and [place] | + + + | Organization | [facility] | | | [...] Team Providers + +------+ + | Care Sales Floor Manager Name | Role | Phone | + +------+ + | Unknown, Doctor | PCP | | + +------+ + Reason for Visit + +--------+ + | Reason | Onset | Comments | | | Date | | + +--------+ + | Screening For | 08/23/ | | | Communicable Disease | 2020 | | + +--------+ + Encounter Details +--------+ + + + + | Date | Type | Department | Care Team | Description | +--------+ + + + + | 08/23/ | Telephone | [facility] | Pradip Servin, | Screening For | | 2019 | | ORTHO SPORTS | [address] | Communicable Disease | | | | MEDICINE JAIME | [place] [address] | | | | | [address] | [phone] | | | | | [place], [place] | | | | | | [address] | | | | | | [phone] | | | +--------+ + + + [...] of this encounter Progress Notes Alisa Tsai, Ultrasound Coordinator - 08/24/2019 10:00 AM PDTProactive screening for upcoming office visit [...] 3. Does the patient have MyChart Access?: No. Patient refused. Please be aware that you will be asked these same questions when you arrive at the clinic. If you have any changes in your symptoms between now and your visit, please call us so we c an get you scheduled for an alternative visit before you arrive at the clinic. For your safety and the safety of others, we ask that if you are being seen in person at on e of our clinics you arrive wearing a mask. Hand washing is sampson to keeping our clinic a safe place to receive care. While you are in ou r clinics you will be asked to [...] in the car during your v isit. dochelsy saunders in this encounter Miscellaneous Notes Telephone Encounter - Alisa Tsai Ultrasound Coordinator - 08/24/2019 9:59 AM PDTScreengus Cintron one docume tadeo in this encounter Plan of Treatment +--------+---------+ + + + | Date | Type | Specialty | Care Team | Description | +--------+---------+ + + + | 11/30/ | Office | Orthopedic Surgery | Pradip Servin, | | 2019 | Visit | | MD Barbie PRICE | | | | | | [place] [address] | | | | | | [phone] | | | | | | | | +--------+---------+ + + + documented as of this encounter Visit Diagnoses Not on filedocumented in this encounter"
--- OUTSIDE RECORDS SUMMARY | ~2019-11-02 | XMS | Encounter Summary ---
Demographics + + + | Address | [address] | | | [place] [address] | + + + | Home Phone | | + + + | Preferred Language | Unknown | + + + | Marital Status | | + + + | Roman Catholic Affiliation | CAT | + + + | Race | Unknown | + + + | Ethnic Group | or | + + + Author + + + | Author | [facility] | + + + | Organization | [facility] | + + + | Address | Unknown | + + + | Phone | Unavailable | + + + Support + + + + + | Name | Relationship | Address | Phone | + + + + + | Bernadette Chino | ECON | [address] | | | [place] | | [place] [address] | | + + + + + Care Team Providers + +------+ + | Care Human Resources Assistant Name | Role | Phone | + +------+ + PCP | Unavailable | + +------+ + Encounter Details +--------+ + + + + | Date | Type | Department | Care Team | Description | +--------+ + + + + | 10/10/ | Results | [facility] | Shelby Jennings, LINEWORKER | | | 2012 | Only | Department | [facility] | | | | | | [address] | | | | | Mall [facility], | | | | | | [place] [address] | | | | | | [phone] | | | | | | | [...] | + +--------+ + + + | LOWER EXT JOINT | Routin | 10/10/2012 | | Results for this | | WITHOUT [id number] | e | 1:16 PM | | procedure are in the | | | | PDT | | results section. | + +--------+ + + + documented in this encounter Results LOWER EXT JOINT WITHOUT [id number] (10/10/2012 1:16 PM PDT) + + | Specimen | + + | | + + + + + | Narrative | Performed At | + + + | EXAM: RIGHT KNEE MRI HISTORY: Pain. Question meniscal tear. | [facility] | | COMPARISON: None FINDINGS: The following sequences were obtained: 1. | DEPARTMENT OF | | Axial proton fat sat. 2. Sagittal proton fat sat, T1, 3-D merge, | RADIOLOGY | | proton fat sat cube. 3. Coronal proton, proton fat sat. There is | | | a moderate sized knee joint effusion present (series 4 image 15). | | | No area of bone bruise fracture is noted. No gross defect in the | | | articular cartilages is seen. Tiny spurs are seen in the patella. | | | Horizontal irregular linear increased signal intensity in the body of | | | the medial meniscus extending from the free edge to the base is seen | | | (series 8 image 8) consistent with a tear. No displaced fragment is | | | identified. The lateral meniscus appears intact. No tear of the | | | anterior cruciate ligament, posterior cruciate ligament, patellar | | | tendon, quadriceps tendon, medial collateral ligament or fibular | | | collateral ligament is seen. Prepatellar subcutaneous soft tissue | | | edema is seen. IMPRESSION: There is a tear of the body of the medial | | | meniscus present. Moderate sized joint effusion. | | + + + + + | Procedure Note | + + | Interface, Radiology Results - 10/11/2014 6:05 PM PDT EXAM: RIGHT KNEE MRI | | HISTORY: Pain. Question meniscal tear. | | COMPARISON: None | | FINDINGS: The following sequences were obtained: | | 1. Axial proton fat sat. | | 2. Sagittal proton fat sat, T1, 3-D merge, proton fat sat cube. | | 3. Coronal proton, proton fat sat. | | There is a moderate sized knee joint effusion present (series 4 image | | 15). No area of bone bruise fracture is noted. No gross defect in | | the articular cartilages is seen. Tiny spurs are seen in the patella. | | Horizontal irregular linear increased signal intensity in the body of | | the medial meniscus extending from the free edge to the base is seen | | (series 8 image 8) consistent with a tear. No displaced fragment is | | identified. The lateral meniscus appears intact. No tear of the | | anterior cruciate ligament, posterior cruciate ligament, patellar | | tendon, quadriceps tendon, medial collateral ligament or fibular | | collateral ligament is seen. Prepatellar subcutaneous soft tissue | | edema is seen. | | IMPRESSION: There is a tear of the body of the medial meniscus | | present. Moderate sized joint effusion. | + + + +---------+ + + | Performing | Address | City/State[facility] | Phone Number | | Organization | | | | + +---------+ + + | [facility] DEPARTMENT OF | | | | | RADIOLOGY | | | | + +---------+ + + documented in this encounter Visit Diagnoses Not on filedocumented in this encounter"
--- OUTSIDE RECORDS SUMMARY | ~2019-11-02 | XMS | Encounter Summary ---
Demographics + + + | Address | [address] | | | [place] [address] | + + + | Home Phone | | + + + | Preferred Language | Unknown | + + + | Marital Status | | + + + | Lutheran Affiliation | CAT | + + + [...] | | [place] | | [place] [address] | | + + + + + Care Team Providers + +------+ + | Care Anger Control Counselor Name | Role | Phone | + +------+ + | Sherley MoraP | PCP | | + +------+ + Encounter Details +--------+ + + + + | Date | Type | Department | Care Team | Description | +--------+ + + + + | 09/24/ | Office | [facility] [address] | Garrett Castle, | Progress Note | | 2007 | Visit-Trans | [address] | MD Henry Roberts | | | | wallace | [place] | [place] | | | | | [address] | [address] | | | | | | [phone] | | | | | | | [...] this encounter Progress Notes Garrett Castle - 09/29/2007 10:32 PM [facility] [address] [place] [address] JUSTIN DISLA DATE OF SERVICE: PRIMARY CARE PHYSICIAN: PRIMARY CARE PHYSICIAN: ENOC Zuñiga. REASON FOR FOLLOW-UP: The patient is here with his presumptive THONY, currently treated empirically with CPAP after auto set titration was performed as at the time he could not afford and did not wish to pursue a formal sleep study. CPAP pressure of 9 has been working well for him, although recently has been suffering from increased nasal congestion and dryness that has rendered him almost unable to use the equipment. Sleepiness had been well controlled with regular CPAP use. PHYSICAL EXAMINATION: HEENT: On exam nasal cavity shows dry mucosa with some bogginess. ASSESSMENT: Nasal dryness with continuous positive airway pressure which is unhumidified. PLAN: Obtained humidifier for patient. Switch to full face mask to see if this provides better comfort. Follow up in 2 to 3 weeks if no improvement. Otherwise continue CPAP at current pressure. PC/MedQ /[id number] cc: ENOC Zuñiga Electronically Signed Garrett Castle MD [facility] [id number] ADMIT DATE: documented in th is encounter Plan of Treatment Not on filedocumented as of this encounter Visit Diagnoses Not on filedocumented in this encounter"
--- OUTSIDE RECORDS SUMMARY | ~2019-11-02 | XMS | Encounter Summary ---
Demographics + + + | Address | [address] | | | [place] [address] | + + + | Home Phone | | + + + | Preferred Language | Unknown | + + + | Marital Status | | + + + | Episcopal Affiliation | CAT | + + + | Race | Unknown | + + + | Ethnic Group | or | + + + Author + + + | Author | [facility] | + + + | Organization | [facility] | + + + | Address | Unknown | + + + | Phone | Unavailable | + + + Support + + + + + | Name | Relationship | Address | Phone | + + + + + | Bernadette Chino | ECON | [address] | | | [place] | | [place] [address] | | + + + + + Care Team Providers + +------+ + | Care Equipment Records Supervisor Name | Role | Phone | + +------+ + | Mayda Flores REGIONAL ADMINISTRATIVE ASSISTANT | PCP | | + +------+ + Encounter Details +--------+ + + + + | Date | Type | Department | Care Team | Description | +--------+ + + + + | 08/22/ | Anesthesia | [facility] | Guanako Dejesus MD | | | 2017 | Event | [facility] [address] | [address] | | | | | [address] | [place] | | | | | [place] | [address] | | | | | [address] | [phone] | | | | | | | | | | | | Sandrita Perez RN | | | | | | [address] | | | | | | [place], [place] | | | | | | [address] | | +--------+ + + + + Anesthesia Record + + + + + | Procedure Name | Responsible | Anesthesia Start | Anesthesia Stop Time | | | Anesthesiologist | Time | | + + + + + | EXCISION OF NECK | Guanako Dejesus MD | 08/22/16 1225 | 08/22/16 1312 | | MASS,POSTERIOR (N/A | | | | | Neck) | | | | + + + + + +----+---+ + + | Da | T | Event | Comment | | te | i | | | | | m | | | | | e | | | +----+---+ + + | 06 | 1 | | | | /1 | 2 | | | | 4/ | 1 | | | | 20 | 5 | | | | 17 | | | | +----+---+ + + | | 1 | Pt. Check | Prior to anesthesia start, pt. Identified, examined, chart | | | 2 | | reviewed, PARQ held, anesthetic plan made or approved by | | | 1 | | attending anesthesiologist. NPO status confirmed as appropriate | | | 5 | | for procedure Preoperative evaluation: unchanged | +----+---+ + + | | 1 | Eq Check | Anesthesia machine checked Equipment verified | | | 2 | | | | | 1 | | | | | 8 | | | +----+---+ + + | | 1 | An Start | | | | 2 | | | | | 2 | | | | | 5 | | | +----+---+ + + | | 1 | An Start | | | | 2 | Data | | | | 2 | | | | | 5 | | | +----+---+ + + | | 1 | Vitals | Monitors applied Vital signs checked Patient ready for anesthesia | | | 2 | Checked | | | | 2 | | | | | 6 | | | +----+---+ + + | | 1 | ETT | | | | 2 | | | | | 2 | | | | | 6 | | | +----+---+ + + | | 1 | Ready | | | | 2 | | | | | 3 | | | | | 3 | | | +----+---+ + + | | 1 | Incision | | | | 2 | | | | | 3 | | | | | 6 | | | +----+---+ + + | | 1 | Anesthesia | | | | 3 | End | | | | 1 | | | | | 2 | | | +----+---+ + + +------+ | Meds | +------+ + +--------+ | Name | Total | + +--------+ | propofol IV | 200 mg | + +--------+ | lidocaine inj 1% | 20 mg | + +--------+ | ondansetron IV | 4 mg | + +--------+ | lactated ringers IV infusion | 0 mL | + +--------+ + + | Name | + + | O2 FR Avance (Total Liters) | + + | Air FR Avance (l/min) | + + | Insp Sevo | + + | Et Sevo | + + | EtN2O % | + + | Insp N2O % | + + + + | No blood administrations on file. | + + +--------+ + + + | Type | Details | Placement | Removal | +--------+ + + + | Incisi | Dr. Leong i; neck | 08/22/16 1237 by | | | on | | | | +--------+ + + + | Periph | 08/22/16; 1106; Left; Hand; 18 g; | 08/22/16 1106 by | 08/22/16 1545 by | | laural | 08/22/16; 1545 | Anabel Turk RN | Anabel Turk RN | | IV | | | | +--------+ + + [...] encounter OR Notes Anesthesia Postprocedure Evaluation - Guanako Dejesus MD - 08/22/2016 1:12 PM PDT Shankar Tati Abdi [id number] No Known Allergies Past Surgical History Procedure Laterality Date Sinus surgery Knee arthroscopy Right Ear drum repair Right Temp: 36.4 C (97.5 F) Pulse: 51 Resp: 15 BP: 124/64 SpO2: 100 % Evaluation Patient personally seen and evaluated for recovery from anesthesia care, VS including tempe rature and hydration status are normal and ROS including card, resp, Neuro, and GI w/o evide nce of adverse effects Complications nesthesia Procedure No william - Guanako Dejesus MD - 08/22/2016 12:38 PM PDTAssociated Order(s): ANE LMAProcedure Reason for Intubation: For surgical procedure, Location Performed: OR , Patient was preoxyg enated Mask Ventilation Grade 0 - Ventilation by mask not attempted ETT SGA Atraumatic Placement: Yes LMA Type: Flexible armored LMA Size: 4LMA Size: 4 LMA positive for Etco2 Narrative Attending physically present nesthesia Preprocedure Evaluation - Guanako Dejesus MD - 08/22/2016 12:17 PM PDTFormatting of this note might be di fferent from the original. Shankar Tati Abdi [id number] No Known Allergies NPO:NPO Status: t-1 2300 Last Vitals: Temp: 35.9 C (96.7 F) Pulse: 54 Resp: 18 BP: 113/73 SpO2: 98 % O2 Flow Rate: 0 LPM O2 Delivery Device: None (room air) Preg Status/LMP: Patient Active Problem List Diagnosis THONY (obstructive sleep apnea) Past Surgical History Procedure Laterality Date Sinus surgery Knee arthroscopy Right Ear drum repair Right Current Medication List Name Sig Last Dose AZELASTINE 137 MCG (0.1 %) NASAL SPRAY AEROSOL 08/21/2016 VITAMIN D ORAL Take by mouth. 08/21/2016 OMEGA-3 FATTY ACIDS-FISH OIL 340 MG-1,000 MG CAPSULE Take by mouth. 08/21/2016 GEMFIBROZIL 600 MG TABLET 08/22/2016 HYDROCODONE 5 MG-ACETAMINOPHEN 325 MG TABLET Take 1-2 tablets by mouth every four hours as needed. MULTIVITAMIN CAPSULE Take 1 capsule by mouth once daily. 08/21/2016 NIACIN ORAL Take by mouth. Not Taking SELENIUM SULFIDE 2.25 % SHAMPOO Apply to affected area once and leave on overnight, then wa sh off in the morning. Then use as body wash 2-3 times weekly for maintenance 08/22/2016 VENTOLIN HFA 90 MCG/ACTUATION AEROSOL INHALER Not Taking No results found for: RATE, ATRIALRATE, MS, QRS, QT, QTC, PAXIS, RAXIS, TAXIS, EKGDX Preoperative Adult Anesthesia Plan Last edited 08/22/161216 by Guanako Dejesus MD ROS Pertinent HPI: Pulmonary: Pt. Has asthma Dx of sleep apnea Uses BiPap/CPAP Cardiovascular: No CP No SOB no CAD no hypertension pacemaker GI/Hepatic: no GERD : Endo: no Diabetes: Neurological: Current Pain Level: MS: Heme/Onc: Skin: Obstetrics: Physical Exam General: Head & Neck/Airway: Mallampati: II Mouth Opening: > = 3 cm Lung Exam: Cardiac: Abdominal: Musculoskeletal: Neuro/Psych: Integument: Implants: 16 Anesthesia Plan Comments ASA ASA 3 NPO Status NPO Status: NPO by protocol Monitors/Lines to be used Standard Anesthetic Consideration Induction intravenous induction Anesthetic Technique General; Obstetric Anesthesia Post-Op Pain Plan Blood Products Interpretive Services Informed Consent PARQ discussed with: patient, Procedures, Alternatives, Risks, and Questions discussed ; ; Date Consent Series Given: 08/22/2016 12:14 PM Code status in OR Patients Code Status in OR: FULL 08/22 12:17 PM documented in this enco unter Miscellaneous Notes PMC/ANE PreOp Note - Guanako Dejesus MD - 08/22/2016 12:16 PM PDT ROS Pertinent HPI: Pulmonary: Pt. Has asthma Dx of sleep apnea Uses BiPap/CPAP Cardiovascular: No CP No SOB no CAD no hypertension pacemaker GI/Hepatic: no GERD : Endo: no Diabetes: Neurological: Current Pain Level: MS: Heme/Onc: Skin: Obstetrics: Physical Exam General: Head & Neck/Airway: Mallampati: II Mouth Opening: > = 3 cm Lung Exam: Cardiac: Abdominal: Musculoskeletal: Neuro/Psych: Integument: Implants: MC/ANE PreOp Note - Sandrita Nazario RN - 08/10/2016 9:58 AM PDT ROS Pertinent HPI: Pulmonary: Patient has an inhaler from a bronchitis episode. Patient has not used his inhal er in a year. Dx of sleep apnea Uses BiPap/CPAP Cardiovascular: Able to walk up 2 FOS with no CP or SOB. Vascular: VASCULAR SYMPTOMS hyperl ipidemia GI/Hepatic: : Endo: Patient state has been recently diagnosed with pre-diabetes. Has been controlling wit h diet. Does check his blood sugar every morning and ranges between 84-130. Diabetes: diet < 150 Neurological: Current Pain Level: MS: Heme/Onc: Skin: Obstetrics: documented in this en counter Plan of Treatment Not on filedocumented as of this encounter Procedures + +--------+ + + + | Procedure Name | Priori | Date/Time | Associated Diagnosis | Comments | | | ty | | | | + +--------+ + + + | ANE LMA | Routin | 08/22/2016 | | | | | e | 12:38 PM | | | | | | PDT | | | + +--------+ + + + +---+--------+ | | | | | Proced | | | ure | | | Note - | | | Dejesus, | | | Guanako | | | C, MD | | | - | | | 08/22/ | | | 2016 | | | 12:38 | | | PM PDT | | | | | | Proced | | | ure | | | Reason | | | for | | | Intuba | | | tion: | | | For | | | surgic | | | al | | | proced | | | ure, | | | Locati | | | on | | | Perfor | | | med: | | | [place] , | | | Patien | | | t was | | | preoxy | | | genate | | | dMask | | | Ventil | | | ationG | | | rade 0 | | | - | | | Ventil | | | ation | | | by | | | mask | | | not | | | attemp | | | chip | | | ETTSGA | | | Atraum | | | atic | | | Placem | | | ent: | | | Yes | | | LMA | | | Type: | | | Flexib | | | le | | | armore | | | d | | | LMA | | | Size: | | | 4LMA | | | Size: | | | 4 LMA | | | | | | positi | | | ve for | | | Etco2 | | | | | | Narrat | | | iveAtt | | | ending | | | | | | physic | | | ally | | | presen | | | t | +---+--------+ documented in this encounter Visit Diagnoses Not on filedocumented in this encounter Administered Medications + +---------+ +------+-------+------+ | Medication Order | MAR | Action | Dose | Rate | Site | | | Action | Date | | | | + +---------+ +------+-------+------+ | lactated Ringers IV | New Bag | 08/23/19 | | 300 | | | intravenous, INTRAPROCEDURE | | 17 12:25 | | mL/hr | | | CONTINUOUS PRN, Starting Wed | | PM PDT | | | | | 08/22/16 at 1225, Until Wed | | | | | | | 08/22/16 at 1312 | | | | | | + +---------+ +------+-------+------+ +---+---+ | | | +---+---+ + +-------+ +-------+---+---+ | lidocaine PF (XYLOCAINE MPF) | Given | 08/23/19 | 20 mg | | | | injection INTRAPROCEDURE PRN, | | 17 12:26 | | | | | Starting Sat08/22/16 at 1226, | | PM PDT | | | | | Until Sat08/22/16 at 1312 | | | | | | + +-------+ +-------+---+---+ +---+---+ | | | +---+---+ + +-------+ +------+---+---+ | ondansetron (ZOFRAN) injection | Given | 08/23/19 | 4 mg | | | | intravenous, INTRAPROCEDURE PRN, | | 17 12:36 | | | | | Starting Sat08/22/16 at 1236, | | PM PDT | | | | | Until Sat08/22/16 at 1312 | | | | | | + +-------+ +------+---+---+ +---+---+ | | | +---+---+ + +-------+ +--------+---+---+ | propofol (DIPRIVAN) injection | Given | 08/23/19 | 200 mg | | | | intravenous, INTRAPROCEDURE PRN, | | 17 12:26 | | | | | Starting Sat08/22/16 at 1226, | | PM PDT | | | | | Until Sat08/22/16 at 1312 | | | | | | + +-------+ +--------+---+---+ +---+---+ | | | +---+---+ documented in this encounter"
--- OUTSIDE RECORDS SUMMARY | ~2019-11-02 | XMS | Encounter Summary ---
Demographics + + + | Address | [address] | | | [place] [address] | + + + | Home Phone | | + + + | Preferred Language | Unknown | + + + | Marital Status | | + + + | Sikh Affiliation | CAT | + + + [...] | | [place] | | [place] [address] | | + + + + + Care Team Providers + +------+ + | Care Rehabilitation Consultant Name | Role | Phone | + +------+ + | No Pcp Per Patient | PCP | Unavailable | + +------+ + Reason for Visit +---------+ + | Reason | Comments | +---------+ + | Post Op | excision of neck mass | +---------+ + Encounter Details +--------+---------+ + + + | Date | Type | Department | Care Team | Description | +--------+---------+ + + + | 09/04/ | Office | [facility] | Garrett Leong MD | Lipoma of neck | | 2016 | Visit | [facility] [address] | (Primary Dx) | | | | [address] | [address] [place], [place] | | | | | [place] | [address] | | | | | [address] | [phone] | | | | | [phone] | | | +--------+---------+ + + + [...] + + + | Blood Pressure | 124/76 | 09/04/2016 7:52 AM | | | | | PDT | | + + + + + | Pulse | 51 | 09/04/2016 7:52 AM | | | | | PDT [...] + + + + | Weight | 95.7 kg (211 lb) | 09/04/2016 7:52 AM | | | | | PDT | | + + + + + | Height | 180.3 cm (5' 11") | 09/04/2016 7:52 AM | | | | | PDT | | + + + + + | Body Mass Index | 29.43 | 09/04/2016 7:52 AM | | | | | PDT | | + + + + + documented in this encounter Progress Notes Garrett Leong MD - 09/04/2016 8:00 AM PDTFormatting of this note might be different from t breanna original. ASSESSMENT: Good post-op recovery. Pathology was a lipoma. No further treatment is necessary HPI: Patient here for post-op follow up. No major or unexpected complaints. PE: Wounds well healed Past Medical History Past Medical History: Diagnosis Date High cholesterol Sleep apnea Past Surgical History Past Surgical History Procedure Laterality Date Sinus surgery Knee arthroscopy Right Ear drum repair Right Medications: Current Outpatient Prescriptions: azelastine 137 mcg (0.1 %) nasal aerosol,spray, , Disp: , Rfl: ERGOCALCIFEROL (VITAMIN D2) (VITAMIN D ORAL), Take by mouth., Disp: , Rfl: Fish Oil-Chester-3 Fatty Acids (FISH OIL) 340-1,000 mg oral capsule, Take by mouth., Disp: , Rfl: gemfibrozil 600 mg oral tablet, , Disp: , Rfl: HYDROcodone-acetaminophen (NORCO) 5-325 mg oral tablet, Take 1-2 tablets by mouth every fou r hours as needed., Disp: 30 tablet, Rfl: 0 multivitamin oral capsule, Take 1 capsule by mouth once daily., Disp: , Rfl: NIACIN ORAL, Take by [...] file Social History Narrative Vital Signs: BP 124/76 | Pulse 51 | Ht 1.803 m (5' 11") | Wt 95.7 kg (211 lb) | BMI 29.43 k g/(m^2) ROS Review of Systems Constitutional: Negative for chills and fever. HENT: Negative for congestion. Cardiovascular: Negative for chest pain and palpitations. Gastrointestinal: Negative for nausea and vomiting. Neurological: Negative for dizziness and headaches. All other systems reviewed and are negative. Patient was offered spa concierge for today's visit and declined. Lab Results Component Value Date GLU 92 08/22/2016 No results found for: WBC, HB, HCT, PLT, MCV, RDW documented in this encou nter Plan of Treatment Not on filedocumented as of this encounter Visit Diagnoses + + | Diagnosis | + + | Lipoma of neck - Primary Lipoma of other skin and subcutaneous tissue | + + documented in this encounter
--- OUTSIDE RECORDS SUMMARY | ~2019-11-02 | XMS | Encounter Summary ---
Demographics + + + | Address | [address] | | | [place] [address] | + + + | Home Phone | | + + + | Preferred Language | Unknown | + + + | Marital Status | | + + + | Denominational Affiliation | CAT | + + + | Race | Unknown | + + + | Ethnic Group | or | + + + Author + + + | Author | [facility] | + + + | Organization | [facility] | + + + | Address | Unknown | + + + | Phone | Unavailable | + + + Support + + + + + | Name | Relationship | Address | Phone | + + + + + | Bernadette Chino | ECON | [address] | | | [place] | | [place] [address] | | + + + + + Care Team Providers + +------+ + | Care Line Up Machine Operator Name | Role | Phone | + +------+ + | Sherley MoraP | PCP | | + +------+ + Encounter Details +--------+ + + + + | Date | Type | Department | Care Team | Description | +--------+ + + + + | 04/15/ | Office | [facility] | Garrett Castle, | Progress Note | | 2008 | Visit-Trans | E The | MD Henry Roberts | | | | wallace | [place] | [place] | | | | | [address] | [address] | | | | | | [phone] | | | | | | | [...] this encounter Progress Notes Garrett Castle - 04/16/2008 5:50 AM [facility] SLEEP STUDY FOLLOW UP NOTE [address] [place] [address] JUSTIN DISLA DATE OF SERVICE: April 15, 2008 PRIMARY CARE PHYSICIAN: REASON FOR FOLLOW-UP: The patient comes in for follow-up of his PSG that demonstrated positional obstructive sleep apnea, moderate in supine, where the apnea-hypopnea index was 23, and mild non-supine, where the apnea-hypopnea necks was 6.7. Overall apnea-hypopnea index was 13.4 per hour. He has been using CPAP that we started empirically before he had insurance coverage; because of the beneficial effect on his daytime sleepiness, he has continued to use this. He reports the pressure feels like it may have dropped off somewhat, and his reports to him that he is snoring, even while using the machine. He is experiencing no recent worsening of daytime sleepiness or nocturnal sleep disruption. ASSESSMENT: Obstructive sleep apnea, mild in the non-supine position, moderate supine. Still good control of excessive daytime sleepiness, but some snoring with machine use. RECOMMENDATION: Increase CPAP pressure empirically by 1 cm of water pressure to reduce snoring, otherwise continue current therapy. YAMEL/Imani /[id number] cc: Cristine ZuñigaNKrystaP. Electronically Signed MD NIGHAT VuJUSTIN Emelyn [id number] ADMIT DATE: documented in th is encounter Plan of Treatment Not on filedocumented as of this encounter Visit Diagnoses Not on filedocumented in this encounter"
--- OUTSIDE RECORDS SUMMARY | ~2019-11-02 | XMS | Encounter Summary ---
Demographics + + + | Address | [address] | | | [place] [address] | + + + | Home Phone | | + + + | Preferred Language | Unknown | + + + | Marital Status | | + + + | Worship Affiliation | Unknown | + + + | Race | Unknown | + + + | Ethnic Group | or | + + + Author + + + | Author | [facility] | | | and [place] | + + + | Organization | [facility] | | | [...] Team Providers + +------+ + | Care Restaurant Shift Leader Name | Role | Phone | + +------+ + | Unknown, Doctor | PCP | | + +------+ + Reason for Visit + + + | Reason | Comments | + + + | Shoulder Pain | Left Shoulder Pain | + + + Evaluate & Treat [...] | Surgery | Unspecified | [facility] | [address] | | | | | rotator | MD Riley | [address] | | | | | cuff tear or | [address] | [place], [place] | | | | | rupture of | [address] | [address] | | | | | left | [address] | Phone: | | | | | shoulder, | [place], | [phone] | | | | | not | [place] [address] | Fax: | | | | | specified as | Phone: | [phone] | | | | | traumatic | [phone] | | | | | | Left | Fax: | | | | | | Shoulder | [phone] | | | | | | (urgent care | | | | | | | referring) | | | + +--------+ + + + + Encounter Details +--------+---------+ + + + | Date | Type | Department | Care Team | Description | +--------+---------+ + + + | 01/13/ | Office | [facility] | Pradip Servin, | Tear of rotator | | 2018 | Visit | [facility] | [address] | cuff, unspecified | | | | MEDICINE JAIME | [place] [address] | laterality, | | | | [address] | [phone] | unspecified tear | | | | [place], [place] | | extent, unspecified | | | | [address] | | whether traumatic | | | | [phone] | | (Primary Dx); | | | | | | Impingement syndrome | | | | | | of left shoulder | | | | | | region; Degenerative | | | | | | tear of glenoid | | | | | | labrum, unspecified | | | | | | laterality | +--------+---------+ + + + Social History [...] + | Blood Pressure | 140/60 | 01/13/2019 2:15 PM | | | | | PST | | + + + + + | Pulse | 64 | 01/13/2019 2:15 PM | | | | | PST | | + + + + + | Temperature | - | - | | + + + + + | Respiratory Rate | - | - | | + + + + + | Oxygen Saturation | 96% | 01/13/2019 2:15 PM | | | | | PST | | + + + + + | Inhaled Oxygen | - | - | | | Concentration | | | | + + + + + | Weight | 99.9 kg (220 lb 3.2 | 01/13/2019 2:15 PM | | | | oz) | PST | | + + + + + | Height | 180.3 cm (5' 11") | 01/13/2019 2:15 PM | | | | | PST | | + + + + + | Body Mass Index | 30.71 | 01/13/2019 2:15 PM | | | | | PST | | + + + + + documented in this encounter Progress Notes Pradip Servin MD - 01/13/2019 1:20 PM PSTFormatting of this note might be different fro m the original. [facility] Service: Orthopedic Surgery [...] Medical History: Past Medical History: Diagnosis Date Hyperlipidemia Past Surgical History: Past Surgical History: Procedure Laterality Date INNER EAR SURGERY 2007 KNEE SURGERY 2012 SINUS SURGERY 2002 Medications: No current outpatient medications on file. Allergies: No Known Allergies Review of Systems: Review of Systems Constitutional: Positive for activity change. Musculoskeletal: Positive for neck pain and neck stiffness. Neurological: Positive for numbness. Psychiatric/Behavioral: Positive for sleep disturbance. All other systems reviewed and are negative. Objective: Vital Signs: BP 140/60 | Pulse 64 | Ht 1.803 m (5' 11") | Wt 99.9 kg (220 lb 3.2 oz) | SpO2 96% | B AR 30.71 kg/m Body mass index is 30.71 kg/m. Exam: Gen: No acute distress, pleasant [...] MRI of the left shoulder done at [facility] on 12/26/2018 reports degenerative change of the AC joint with downward extending osteophytes. Full-thickness tear of the supr aspinatus tendon without retraction. Possible adjacent calcific tendinopathy. Presumed deg enerative change of the superior labrum. Assessment: Left shoulder full-thickness rotator cuff tear Plan: I reviewed the imaging with the patient and discussed his diagnosis. He does have a full-thickness rotator cuff tear of the supraspinatus. We discussed treatment options for him including both conservative and operative management. Given that he does have a traumat ic full-thickness tear I would recommend operative management and we discussed arthroscopic rotator cuff repair with subacromial decompression and debridement. We discussed the details of surgery, and the perioperative and postoperative course including the details of postope rative rehabilitation and recovery. Risks and benefits were also discussed, including but n ot limited to, infection, bleeding, damage to surrounding tissue including neurovascular inj ury,fracture, or damage to cartilage or bone, leading to decreased sensation or function, co ntinued or increased pain, hardware failure, instability,stiffness, weakness, failure of the repair to heal or reinjury, need for future procedure, DVT, PE, cardiac arrest, stroke, los s of life or limb. He expressed understanding, all questions were satisfactorily addressed, and he wished to proceed. Consent was obtained. An APF was provided today. Pradip Servin MD has created this entry using [employer] Voice Recognition software a [employer]. The entry has been reviewed and there [...] PRICE | | | | | | [place] [address] | | | | | | [phone] | | | | | | | | +--------+---------+ + + + documented as of this encounter Procedures + +--------+ + + + | Procedure Name | Priori | Date/Time | Associated Diagnosis | Comments | | | ty | | | | + +--------+ + + + | IMAGING REPORT - | | 12/26/2018 | | Results for this | | EXTERNAL SCAN | | 12:00 AM | | procedure are in the | | | | PDT | | results section. | + +--------+ + + + documented in this encounter Results IMAGING REPORT - EXTERNAL SCAN (12/26/2018 12:00 AM PDT) + + + | Narrative | Performed At | + + + | Ordered by an | | | unspecified provider. | | + + + documented in this encounter Visit Diagnoses + + | Diagnosis | + + | Tear of rotator cuff, unspecified laterality, unspecified tear extent, unspecified | | whether traumatic - Primary | + + | Impingement syndrome of left shoulder region | + + | Degenerative tear of glenoid labrum, unspecified laterality | + + documented in this encounter
--- OUTSIDE RECORDS SUMMARY | ~2019-11-02 | XMS | Encounter Summary ---
Demographics + + + | Address | [facility] [address] | | | [place] [address] | + + + | Home Phone | | + + + | Preferred Language | Unknown | + + + | Marital Status | | + + + | Confucianism Affiliation | Unknown | + + + | Race | Unknown | + + + | Ethnic Group | or | + + + Author + + + | Author | [facility] | | | and [place] | + + + | Organization | [facility] | | [...] Team Providers + +------+ + | Care Local Company Hazmat Driver Name | Role | Phone | + +------+ + | Unknown, Doctor | PCP | | + +------+ + Encounter Details +--------+ + + + + | Date | Type | Department | Care Team | Description | +--------+ + + + + | 02/16/ | Hospital | [facility] | Rishabh Sosa, | | | 2019 | Encounter | MEDICAL [facility]ENTER | MD [address] | | | | | [address] [address] | [place] [address] | | | | | [place] [address] | [phone] | | | | | [place] | | | | | | [address] | | | | | | [phone] | | | +--------+ + + + [...] PRICE | | | | | | [place] [address] | | | | | | [phone] | | | | | | | [...] documented in this encounter Results STORED IMAGE ANESTHESIA (02/16/2019 9:15 AM PST) [...]
--- OUTSIDE RECORDS SUMMARY | ~2019-11-02 | XMS | Encounter Summary ---
Demographics + + + | Address | [address] | | | [place] [address] | + + + | Home Phone | | + + + | Preferred Language | Unknown | + + + | Marital Status | | + + + | Tenriism Affiliation | CAT | + + + | Race | Unknown | + + + | Ethnic Group | or | + + + Author + + + | Author | [facility] | + + + | Organization | [facility] | + + + | Address | Unknown | + + + | Phone | Unavailable | + + + Support + + + + + | Name | Relationship | Address | Phone | + + + + + | Bernadette Chino | ECON | [address] | | | [place] | | [place] [address] | | + + + + + Care Team Providers + +------+ + | Care Communications Writer Name | Role | Phone | + +------+ + | Mayda Flores CIVIL DIVISION COMMANDER DEPUTY SHERIFF | PCP | | + +------+ + Reason for Visit + +--------+ + | Reason | Onset | Comments | | | Date | | + +--------+ + | Update from Patient | 07/09/ | | | | 2016 | | + +--------+ + Encounter Details +--------+ + + + + | Date | Type | Department | Care Team | Description | +--------+ + + + + | 07/09/ | Telephone | Dermatology at | Vandana Crespo | Update from Patient | | 2017 | | [facility] | MD Kimberly | | | | | Clinic [address] | | | | | | [address] [place] | | | | | | [address] | | | | | | [phone] | | | +--------+ + + + [...] this encounter Miscellaneous Notes Telephone Encounter - Isabel Dominique - 07/11/2016 1:33 PM PDTPt has been scheduled on 07/19 elephone Encount er - Rosanna Elkins MA - 07/11/2016 9:14 AM PDTMA spoke with pt, he states the rash has spread and he would like to be seen again but needs either an early or late appointment. AMARILIS could not find any coming Up soon with Dr. Crespo so message sent to help desk consultant to put o n cancellation list for an upcoming early or late appointment. elephone Encounter - Vandana Crespo MD - 04/2016 4:14 PM PDTReassure him that the rash will take time (many months) to fade but the f ungus should be killed by the shampoo by now. elephone Encounter - Rosanna Elkins MA - 07/09/2016 2:33 PM P DTFrom Last Visit: "ASSESSMENT AND PLAN: Tinea versicolor (primary encounter diagnosis) [...] as a bodywash 2-3 X weekly as adriana ce." Message sent to Dr. Crespo to advise..Rosanna Elkins MA elephone Encounter - April Burton - 07/09/2016 1:27 PM PDTThe shampoo the pt has been using for his rash is no t helping, please call. docume nted in this encounter Plan of Treatment Not on filedocumented as of this encounter Visit Diagnoses Not on filedocumented in this encounter
--- OUTSIDE RECORDS SUMMARY | ~2019-11-02 | XMS | Encounter Summary ---
Demographics + + + | Address | [address] | | | [place] [address] | + + + | Home Phone | | + + + | Preferred Language | Unknown | + + + | Marital Status | | + + + | Jain Affiliation | CAT | + + + [...] | | [place] | | [place] [address] | | + + + + + Care Team Providers + +------+ + | Care Refuse Collector Supervisor Name | Role | Phone | + +------+ + | Sherley Mora MOTORCOACH DRIVER | PCP | | + +------+ + [...] | | | | | acromioclavi | [address] | [place] | | | | | cular joint | | [address] | | | | | Tear of | [place], | Phone: | | | | | left rotator | [place] [address] | [phone] | | | | | cuff, | Phone: | | | | | | unspecified | [phone] | | | | | | tear extent | Fax: | | | | | | Procedures | [phone] | | | | | | MRI | | | | | | | ARTHROGRAM | | | | | | | SHOULDER LT | | | | | | | DE MRI, | | | | | | [...] Closed | | Radiology | Diagnoses | Marcell, | [facility] | | | | | Arthritis | Evangelist Collazo MD | [address] | | | | | of left | [address] | [address] | | | | | acromioclavi | [address] | [place] | | | | | cular joint | | [address] | | | | | Tear of | [place], | Phone: | | | | | left rotator | [place] [address] | [phone] | | | | | cuff, | Phone: | | | | | | unspecified | | | | | | | tear extent | Fax: | | | | | | Procedures | [phone] | | | | | | MRI | | | | | | | ARTHROGRAM | | | | | | | SHOULDER LT | | | | | | | DE MRI, | | | | | | | JOINT UPPER | | | | | | | EXTREM | | | | | | | W/CONTRAST | | | +--------+--------+ + + + + Encounter Details +--------+ + + + + | Date | Type | Department | Care Team | Description | +--------+ + + + + | 06/23/ | Hospital | Diagnostic Imaging | Evangelist Curtis MD | | | 2019 | Encounter | at [facility] | [address] | | | | | [address] [place], | | | | | [place] | [place] [address] | | | | | [address] | [phone] | | | | | [phone] | | | +--------+ + + + [...] + + + +---------+ + + | diclofenac sodium | Take 1 tablet by | 60 | 5 | 05/21/19 | | | EC 75 mg oral | mouth two times | tablet | | 19 | | | tablet,delayed | daily. | | | | | | release | | [...] extent | | | | | | + + + +---------+ + + | ERGOCALCIFEROL | Take by mouth. | | 0 | | | | (VITAMIN D2) | | | | | | | (VITAMIN D ORAL) | | | | | | + + + +---------+ + + | Fish Oil-Duke-3 | Take by mouth two | | 0 | | | | Fatty Acids (FISH | times daily. | | | | | | OIL) 340-1,000 mg | | | | | | | oral capsule | | | | | | + + + +---------+ + + | gabapentin 100 mg | 1-3 po qhs for nerve | 60 | 2 | 04/04/19 | | | oral capsule | pain [...] + +--------+ + + + | MRI ARTHROGRAM | Routin | 06/23/2018 | Arthritis of left | Results for this | | SHOULDER LT | e | 3:58 PM | acromioclavicular | procedure are in the | | | | PDT | joint Tear of left | results section. | | | | | rotator cuff, | | | | | | unspecified tear | | | | | | extent | | + +--------+ + + + documented in this encounter Results MRI ARTHROGRAM SHOULDER LT (06/23/2018 3:58 PM PDT) + + | Specimen | + + | | + + + + + | Narrative | Performed At | + + + | [address] [place] [address] | [facility] | | [place] [address] | [facility] | | [phone] Name: JUSTIN MANN Phys: | RADIOLOGY | | EVANGELIST CURTIS : 1970 Sex: M CSN: | | | MR# [id number] Exam Date: 06/23/2018 EXAM: MRI | | [...] Transcribed Date/Time: 06/24/2018 16:00 | | | Lost Charge Card Clerk: KAI | | + + + + + | Procedure Note | + + | Interface, Radiology Results - 06/24/2018 4:05 PM PDT [address] | | [place] [address] | | Name: JUSTIN MANN Phys: EVANGELIST CURTIS : 1970 Sex: M | | CSN: MR# [id number] Exam Date: 06/23/2018 EXAM:MRI OF THE left [...] | | |Transcribed Date/Time: 06/24/2018 16:00 | |Lost Charge Card Clerk: KAI | | | | | | | [...] + | Arthritis of left acromioclavicular joint | + + | Tear of left rotator cuff, unspecified tear extent | + + documented in this encounter"
--- OUTSIDE RECORDS SUMMARY | ~2019-11-02 | XMS | Encounter Summary ---
Demographics + + + | Address | [address] | | | [place] [address] | + + + | Home Phone | | + + + | Preferred Language | Unknown | + + + | Marital Status | | + + + | Anglican Affiliation | CAT | + + + | Race | Unknown | + + + | Ethnic Group | or | + + + Author + + + | Author | [facility] | + + + | Organization | [facility] | + + + | Address | Unknown | + + + | Phone | Unavailable | + + + Support + + + + + | Name | Relationship | Address | Phone | + + + + + | Bernadette Chino | ECON | [address] | | | [place] | | [place] [address] | | + + + + + Care Team Providers + +------+ + | Care Harp Action Assembler Name | Role | Phone | + +------+ + | Mayda Flores EXHIBIT TECHNICIAN | PCP | | + +------+ + Reason for Visit + +--------+ + | Reason | Onset | Comments | | | Date | | + +--------+ + | Telephone follow-up | 08/23/ | | | | 2016 | | + +--------+ + Encounter Details +--------+ + + + + | Date | Type | Department | Care Team | Description | +--------+ + + + + | 08/23/ | Telephone | [facility] | Garrett Leong MD | Telephone follow-up | | 2017 | | Surgery [facility] [address] | [address] [place] | | | | | [address] | [address] [place] | | | | | [place] | [address] | | | | | [address] | [phone] | | | | | [phone] | | | +--------+ + + + [...] this encounter Miscellaneous Notes Telephone Encounter - Bambi Menjivar MA - 08/23/2016 1:29 PM PDTPost procedure follow up phone call Patient name: Shankar Abdi Are you having any pain? some If yes, what is your pain level? NA What medications for pain are you taking? None Does the wound look okay? Yes Any redness? No Any swelling? No Any drainage? No Have a fever or chills? No The bowels and bladder working okay? Yes Are you getting around okay? Yes Do you know when your next office appointment is? Yes Do you have any questions? No Next scheduled appointment in our clinic: 09/04/16 at 8:00 am Patient notified to call the office if they have any questions or problems, 01/10 access exp lained: Yes Forwarded to physician? No elephone Encounter - Hiral Agustin - 08/23/2016 10:30 AM PDTDate of Discharge: 08-22-16 Procedure Performed: Excision of neck mass Physician: Dr. Leong documented in this encou nter Plan of Treatment Not on filedocumented as of this encounter Visit Diagnoses Not on filedocumented in this encounter"
--- OUTSIDE RECORDS SUMMARY | ~2019-11-02 | XMS | Encounter Summary ---
Demographics + + + | Address | [facility] [address] | | | [place] [address] | + + + | Home Phone | | + + + | Preferred Language | Unknown | + + + | Marital Status | | + + + | Restorationist Affiliation | Unknown | + + + | Race | Unknown | + + + | Ethnic Group | or | + + + Author + + + | Author | [facility] | | | and [place] | + + + | Organization | [facility] | | | [...] Team Providers + +------+ + | Care Grocery Sacker Name | Role | Phone | + +------+ + | Unknown, Doctor | PCP | | + +------+ + Encounter Details +--------+ + + + + | Date | Type | Department | Care Team | Description | +--------+ + + + + | 02/16/ | Hospital | [facility] | Pradip Servin, | | | 2019 | Encounter | MEDICAL CENTER | MD [address]bie [address] | | | | | [address] | [place] [address] | | | | | [place] [address] | [phone] | | | | | [place] | | | | | | [address] | | | | | | [phone] | | | +--------+ + + + [...] | | | | | [place] [address] | | | | | | [phone] | | | | | | | [...] this encounter Results STORED IMAGE ORTHOPEDIC (02/16/2019 10:05 AM PST) [...]
--- OUTSIDE RECORDS SUMMARY | ~2019-11-02 | XMS | Encounter Summary ---
Demographics + + + | Address | [address] | | | [place] [address] | + + + | Home Phone | | + + + | Preferred Language | Unknown | + + + | Marital Status | | + + + | Samaritan Affiliation | CAT | + + + | Race | Unknown | + + + | Ethnic Group | or | + + + Author + + + | Author | [facility] | + + + | Organization | [facility] | + + + | Address | Unknown | + + + | Phone | Unavailable | + + + Support + + + + + | Name | Relationship | Address | Phone | + + + + + | Bernadette Chino | ECON | [address] | | | [place] | | [place] [address] | | + + + + + Care Team Providers + +------+ + | Care Vp Site Name | Role | Phone | + +------+ + PCP | Unavailable | + +------+ + Encounter Details +--------+ + + + + | Date | Type | Department | Care Team | Description | +--------+ + + + + | 11/13/ | Results | [facility] | Tammie Mandujano, | | | 2007 | Only | Department | PLASTICS ENGINEERING TEACHER Jud | | | | | | [facility] | | | | | | Care [address] | | | | | | [address] | | | | | | [place] [address] | | | | | | [phone] | | | | | | | [...] | + +--------+ + + + | L - SPINE WITHOUT | Routin | 11/14/2007 | | Results for this | | [id number] | e | 7:26 AM | | procedure are in the | | | | PDT | | results section. | + +--------+ + + + documented in this encounter Results L - SPINE WITHOUT [id number] (11/14/2007 7:26 AM PDT) + + | Specimen | + + | | + + + + + | Narrative | Performed At | + + + | MRI OF THE LUMBAR SPINE WITHOUT CONTRAST CLINICAL HISTORY: Back | [facility] | | pain for several years. TECHNIQUE: Sagittal and axial T1 and T2 as | DEPARTMENT OF | | well as coronal T2 weighted images of the lumbar spine were obtained. | RADIOLOGY | | COMPARISON: None available. FINDINGS: Normal lumbar lordosis is | | | visualized. There is moderate narrowing of the L4-5 and L5-S1 | | | intervertebral disc spaces with desiccation of the discs at this | | | level. Mild loss of height posteriorly of the L5 vertebral body is | | | visualized. The remainder of the vertebral body heights as well as | | | the intervertebral disc space heights are normal. Small Schmorl's | | | nodes are visualized involving the superior end plate of L1 and T12. | | | The conus medullaris ends at T12-L1 and is normal in signal and | | | configuration. The marrow signal is grossly normal with the exception | | | of degenerative type I end plate changes at L5-S1. Level by level | | | as follows: At the level of L1-2, L2-3, and L3-4, there is no disc | | | bulge or herniation, central canal stenosis or neural foraminal | | | narrowing. At the level of L4-5, there is a moderate diffuse disc | | | bulge with increased asymmetry of the bulge within the left | | | subarticular recess and left foraminal region. Bilateral subarticular | | | recess stenosis is noted, left greater than right. There is | | | bilateral mild to moderate facet arthrosis and bilateral moderate | | | ligamentum flavum thickening. There is some mild left neural | | | foraminal narrowing and no central canal stenosis. At the level of | | | L5-S1, there is a mild asymmetric diffuse disc bulge with small | | | foraminal osteophytes. Bilateral mild facet arthrosis is noted. No | | | central canal stenosis is visualized. Bilateral mild to moderate | | | subarticular recess stenosis is visualized. There is also mild | | | bilateral neural foraminal narrowing, right greater than left. | | | IMPRESSION: 1. Moderate narrowing | | | of the L4-5 and L5-S1 | | | | | | intervertebral disc | | | spaces with desiccation of the | | | | | | intervertebral discs | | | at that level. | | | | | | 2. Moderate asymmetric diffuse | | | disc bulge at L4-5, | | | | | | resulting in | | | bilateral severe subarticular | | | | | | recess stenosis, | | | left greater than right and mild | | | | | | left neural | | | foraminal narrowing. | | | | | | 3. Bilateral mild neural | | | foraminal narrowing at | | | | | | L5-S1, right greater | | | than left. [id number] | | + + + + + | Procedure Note | + + | Interface, Radiology Results - 10/29/2014 12:44 PM PDT MRI OF THE LUMBAR SPINE | | WITHOUT CONTRASTCLINICAL HISTORY: Back pain for several years.TECHNIQUE: Sagittal and | | axial T1 and T2 as well as coronal T2 weightedimages of the lumbar spine were | | obtained.COMPARISON: None available.FINDINGS: Normal lumbar lordosis is visualized. | | There is moderatenarrowing of the L4-5 and L5-S1 intervertebral disc spaces | | withdesiccation of the discs at this level. Mild loss of heightposteriorly of the L5 | | vertebral body is visualized. The remainder ofthe vertebral body heights as well as the | | intervertebral disc spaceheights are normal. Small Schmorl's nodes are visualized | | involving thesuperior end plate of L1 and T12. The conus medullaris ends at [id number] is | | normal in signal and configuration. The marrow signal isgrossly normal with the | | exception of degenerative type I end platechanges at L5-S1.Level by level as follows:At | | the level of L1-2, L2-3, and L3-4, there is no disc bulge orherniation, central canal | | stenosis or neural foraminal narrowing.At the level of L4-5, there is a moderate diffuse | | disc bulge withincreased asymmetry of the bulge within the left subarticular recessand | | left foraminal region. Bilateral subarticular recess stenosis isnoted, left greater than | | right. There is bilateral mild to moderatefacet arthrosis and bilateral moderate | | ligamentum flavum thickening.There is some mild left neural foraminal narrowing and no | | centralcanal stenosis.At the level of L5-S1, there is a mild asymmetric diffuse disc | | bulgewith small foraminal osteophytes. Bilateral mild facet arthrosis isnoted. No | | central canal stenosis is visualized. Bilateral mild tomoderate subarticular recess | | stenosis is visualized. There is alsomild bilateral neural foraminal narrowing, right | | greater than left.IMPRESSION: 1. Moderate narrowing | | of the L4-5 and | | L5-S1 | | intervertebral disc spaces with desiccation of | | the | | intervertebral discs at that | | level. | | 2. Moderate asymmetric diffuse disc bulge at | | L4-5, | | resulting in bilateral severe | | subarticular | | recess stenosis, left greater than right and | | | | mild | | left neural foraminal | | narrowing. | | 3. Bilateral mild neural foraminal narrowing | | at | | L5-S1, right greater than left.[id number] | | left neural foraminal narrowing. | | 3 . Bilateral mild neural foraminal | |narrowing at | | L5-S1, right greater than left. | |[id number] | + + + +---------+ + + [...]
--- OUTSIDE RECORDS SUMMARY | ~2019-11-02 | XMS | Encounter Summary ---
Demographics + + + | Address | [address] | | | [place] [address] | + + + | Home Phone | | + + + | Preferred Language | Unknown | + + + | Marital Status | | + + + | Orthodox Affiliation | CAT | + + + | Race | Unknown | + + + | Ethnic Group | or | + + + Author + + + | Author | [facility] | + + + | Organization | [facility] | + + + | Address | Unknown | + + + | Phone | Unavailable | + + + Support + + + + + | Name | Relationship | Address | Phone | + + + + + | Bernadette Chino | ECON | [address] | | | [place] | | [place] [address] | | + + + + + Care Team Providers + +------+ + | Care Decorator Lighting Fixtures Name | Role | Phone | + +------+ + | Sherley MoraP | PCP | | + +------+ + Reason for Visit + +--------+ + | Reason | Onset | Comments | | | Date | | + +--------+ + | MRI Results | 06/02/ | | | | 2018 | | + +--------+ + Encounter Details +--------+ + + + + | Date | Type | Department | Care Team | Description | +--------+ + + + + | 06/02/ | Telephone | [facility] | Aakash Faith MD | MRI Results | | 2019 | | Sports Medicine & | [address] | | | | | Orthopaedic Surgery | [address], | | | | | [address] | [place] [address] | | | | | [place], [place] | [phone] | | | | | [address] | | | | | | [phone] | | | +--------+ + + + [...] this encounter Miscellaneous Notes Telephone Encounter - Roly Wynn - 06/04/2018 8:07 AM PDTLVM for patient to call back and schedule MRI review with Dr. Faith Electronically signed by Roly vega 06/04/2018 8:07 AM PDTTelephone Encounter - Roly Wynn - 06/02/2018 1:48 PM PD TLVM asking patient to call back and schedule MRI review with Dr. Faith Electronically sign ed by Roly Wynn at 06/02/2018 1:49 PM PDTdocumented in this encounter Plan of Treatment Not on filedocumented as of this encounter Visit Diagnoses Not on filedocumented in this encounter"
--- OUTSIDE RECORDS SUMMARY | ~2019-11-02 | XMS | Encounter Summary ---
Demographics + + + | Address | [address] | | | [place] [address] | + + + | Home Phone | | + + + | Preferred Language | Unknown | + + + | Marital Status | | + + + | Orthodoxy Affiliation | CAT | + + + | Race | Unknown | + + + | Ethnic Group | or | + + + Author + + + | Author | [facility] | + + + | Organization | [facility] | + + + | Address | Unknown | + + + | Phone | Unavailable | + + + Support + + + + + | Name | Relationship | Address | Phone | + + + + + | Bernadette Chino | ECON | [address] | | | [place] | | [place] [address] | | + + + + + Care Team Providers + +------+ + | Care Braider Operator Name | Role | Phone | + +------+ + | Sherley Mora | PCP | | + +------+ + Reason for Visit + + + | Reason | Comments | + + + | THONY - obstructive | | | Sleep Apnea | | + + + | Follow-up visit | | + + + Encounter Details +--------+---------+ + + + | Date | Type | Department | Care Team | Description | +--------+---------+ + + + | 12/18/ | Office | Sleep Medicine at | Mayda Flores | THONY (obstructive | | 2019 | Visit | [facility] [address]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 THONY (obstructive s leep apnea) Mild The sleep apnea is well controlled with adequate use of the CPAP machine, appropriate reduc tion in the apnea hypopnea index and good symptom control. PLAN: Continue on current PAP settings. Remember to change your mask cushions as recommended to help increase your comfort and decr ease leaking. See [facility] for supplies and mask fit. Return in one year for PAP follow up. Contact my office if there is a recurrence of symptoms, especially if there is symptomati c sleepiness impairing safety with driving (or operating other machinery), or an inability t o use PAP device regularly. 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 Contact us with any problems. MILD Obstructive Sleep Apnea Sleep apnea of this severity is not likely a cardiovascular risk factor but can contribut e to symptoms of poor sleep quality including daytime sleepiness/fatigue, difficulty with co ncentration/memory, insomnia, nighttime acid reflux, and morning headache. It can also affe ct mood, anxiety and metabolism. Treatment is indicated in people with associated symptoms . Treatment options include: 1. Positive Airway Pressure (PAP) therapy 2. Oral appliances (mandibular advancement device) 3. In very selected cases, airway surgery can be effective 4. Behavioral therapy: avoiding supine sleep, avoiding alcohol at least 3 hours prior to be dtime, avoiding respiratory depressant medications, maintenance of ideal body composition, a nd optimization of nasal patency. Drowsiness and Driving For all drivers to [...] blinking, "zoning ou t", eyes unfocussing etc). leather coverer and rest/nap/consume caffeine and only resume [...] sleepiness. documented in this encounter Progress Notes Mayda Flores FNP - 12/18/2018 3:00 PM PDT [facility] Patient Visit on 12/18/2018 with ENOC BRUNSON PCP is ENOC Herbert Chief Complaint: Chief Complaint Patient presents with THONY - obstructive Sleep Apnea Follow-up visit History of present illness Shankar Abdi is a 48 y.o. male who presents for annual follow up of Mild THONY and PAP u se although last seen in 2016. 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 He is using the PAP nightly with good compliance with use. Currently using full nasal mask, not certain that he likes it. Having Bothersome leaking Has been Changing mask cushions although not as often as recommended. Air blows into his eyes and makes red eyes in the AM. Discussed trying a different style of mask or an eye mask to see if it would help reduce th e air into eyes. Pressures feel fine: auto setting 9-15 cm H2O; 95th percentile 12.4 cm H2O; Max 13.9 cm H2O No need for pressure changes at this time. AHI 0.4 THONY is well controlled with PAP use. Humidity is fine; no rainout No Daytime sleepiness; No need for naps No Sleepiness with driving; No MVA or close calls due to sleepiness or inattention. He sleeps well. Wakes feeling well rested most every morning. Overall doing well on PAP. He will see [facility] today for mask fit issues. He will return in one year, sooner if the mask issues don't resolve. He is agreeable to this plan. Shankar Duffy 11/18/2018 - 12/17/2018 : 1970 Age: 48 years Compliance Report Usage 11/18/2018 - 12/17/2018 Usage days 30/30 days (100%) >= 4 hours 30 days (100%) < 4 hours 0 days (0%) Usage hours 228 hours 44 minutes Average usage (total days) 7 hours 37 minutes Average usage (days used) 7 hours 37 minutes Median usage (days used) 7 hours 34 minutes Total used hours (value since last reset - 12/17/2018) 9,618 hours [employer] 10 AutoSet Serial number [id number] Mode AutoSet Min Pressure 9 cmH2O Max Pressure 15 cmH2O EPR Fulltime EPR level 2 Therapy Pressure - cmH2O Median: 10.1 95th percentile: 12.4 Maximum: 13.9 Leaks - L/min Median: 0.6 95th percentile: 1.2 Maximum: 2.8 Events per hour AI: 0.3 HI: 0.1 AHI: 0.4 Apnea Index Central: 0.1 Obstructive: 0.2 Unknown: 0.0 RERA Index 0.0 Carlos A-Koroma respiration (average duration per night) 0 minutes (0%) Review of Systems Review of Systems Constitutional: Negative. HENT: Negative. Respiratory: Negative. Psychiatric/Behavioral: Negative. Problem List Patient Active Problem List Diagnosis THONY (obstructive sleep apnea) Current Medications Current Outpatient Medications Medication Sig diclofenac sodium EC 75 mg oral tablet,delayed release (DR/EC) Take 1 tablet by mouth t wo times daily. ERGOCALCIFEROL (VITAMIN D2) (VITAMIN D ORAL) Take by mouth. Fish Oil-Stratton-3 Fatty Acids (FISH OIL) 340-1,000 mg oral capsule Take by mouth two jose es daily. gabapentin 100 mg oral capsule 1-3 po qhs for nerve pain gemfibrozil 600 mg oral tablet Take 600 mg by mouth two times daily. No current facility-administered medications for this visit. Past Medical/Family/Social History: Past Medical History: Diagnosis Date High cholesterol Sleep apnea Past Surgical History Procedure Laterality Date Sinus surgery Knee arthroscopy Right Ear drum repair Right Social History Socioeconomic History Marital status: Spouse name: Not on file Number of children: Not on file Years of education: ged Highest education level: Not on file Occupational History Not on file Social Needs Financial resource strain: Not on file Food insecurity: Worry: Not on file Inability: Not on file Transportation needs: Medical: Not on file Non-medical: Not on file Tobacco Use Smoking status: Never Smoker Smokeless tobacco: Never Used Substance and Sexual Activity Alcohol use: Yes Comment: Very rare. Drug use: No Sexual activity: Not on file Lifestyle Physical activity: Days per week: Not on file Minutes per session: Not on file Stress: Not on file Relationships Social connections: Talks on phone: Not on file Gets together: Not on file Attends yazdanism service: Not on file Active member of club or organization: Not on file Attends meetings of clubs or organizations: Not on file Relationship status: Not on file Other Topics Concern Service Not Asked Blood Transfusions Not Asked Caffeine Concern Yes Occupational Exposure Not Asked Hobby Hazards Not Asked Sleep Concern Not Asked Stress Concern Not Asked Weight Concern Not Asked Special Diet Not Asked Back Care Not Asked Exercise Not Asked Bike Helmet Not Asked Seat Belt Not Asked Self-Exams Not Asked Social History Narrative Not on file Vitals Vitals: 12/18/18 1444 BP: 144/88 BP Location: Left upper arm Patient Position: Sitting Pulse: 69 SpO2: 97% Weight: 99.1 kg (218 lb 6.4 oz) PainSc: 06 - Severe PainLoc: Leg (Right) Estimated body mass index is 30.46 kg/m as calculated from the following: Height as of 04/04/18: 1.803 m (5' 11"). Weight as of this encounter: 99.1 kg (218 lb 6.4 oz). Physical Exam Physical Exam Constitutional: He is oriented to person, place, and time. He appears well-developed and we ll-nourished. HENT: External nose: no lesions or soreness Cardiovascular: Normal rate, regular rhythm and normal heart sounds. Exam reveals no gallop . No murmur heard. Pulmonary/Chest: Effort normal and breath sounds normal. Neurological: He is alert and oriented to person, place, and time. Skin: Skin is warm and dry. Psychiatric: He has a normal mood and affect. His behavior is normal. Judgment and thought content normal. Assessment and Plan 1. THONY (obstructive sleep apnea) Mild The sleep apnea is well controlled with adequate use of the CPAP machine, appropriate reduc tion in the apnea hypopnea index and good symptom control. PLAN: Continue on current PAP settings. Remember to change your mask cushions as recommended to help increase your comfort and decr ease leaking. See [facility] for supplies and mask fit. Return in one year for PAP follow up. Contact my office if there is a recurrence of symptoms, especially if there is symptomati c sleepiness impairing safety with driving (or operating other machinery), or an inability t o use PAP device regularly. 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 Contact us with any problems. MILD Obstructive Sleep Apnea Sleep apnea of this severity is not likely a cardiovascular risk factor but can contribut e to symptoms of poor sleep quality including daytime sleepiness/fatigue, difficulty with co ncentration/memory, insomnia, nighttime acid reflux, and morning headache. It can also affe ct mood, anxiety and metabolism. Treatment is indicated in people with associated symptoms . Treatment options include: 1. Positive Airway Pressure (PAP) therapy 2. Oral appliances (mandibular advancement device) 3. In very selected cases, airway surgery can be effective 4. Behavioral therapy: avoiding supine sleep, avoiding alcohol at least 3 hours prior to be dtime, avoiding respiratory depressant medications, maintenance of ideal body composition, a nd optimization of nasal patency. Drowsiness and Driving For all drivers to [...] blinking, "zoning ou t", eyes unfocussing etc). leather coverer and rest/nap/consume caffeine and only resume [...] sleepiness. Return in about 1 year (around 12/19/2019) for PAP follow up. Zamzam Álvarez - 12/18/2018 3:00 PM Shankar Florence 11/18/2018 - 12/17/2018 : 1970 Age: 48 years Compliance Report Usage 11/18/2018 - 12/17/2018 Usage days 30/30 days (100%) >= 4 hours 30 days (100%) < 4 hours 0 days (0%) Usage hours 228 hours 44 minutes Average usage (total days) 7 hours 37 minutes Average usage (days used) 7 hours 37 minutes Median usage (days used) 7 hours 34 minutes Total used hours (value since last reset - 12/17/2018) 9,618 hours AirSense 10 AutoSet Serial number [id number] Mode AutoSet Min Pressure 9 cmH2O Max Pressure 15 cmH2O EPR Fulltime EPR level 2 Therapy Pressure - cmH2O Median: 10.1 95th percentile: 12.4 Maximum: 13.9 Leaks - L/min Median: 0.6 95th percentile: 1.2 Maximum: 2.8 Events per hour AI: 0.3 HI: 0.1 AHI: 0.4 Apnea Index Central: 0.1 Obstructive: 0.2 Unknown: 0.0 RERA Index 0.0 Carlos A-Koroma respiration (average duration per night) 0 minutes (0%) documented in this encounter Plan of Treatment Not on filedocumented as of this encounter Visit Diagnoses + + | Diagnosis | + + | THONY (obstructive sleep apnea) - Primary Obstructive sleep apnea (adult) (pediatric) | + + documented in this encounter
--- OUTSIDE RECORDS SUMMARY | ~2019-11-02 | XMS | Encounter Summary ---
Demographics + + + | Address | [address] | | | [place] [address] | + + + | Home Phone [...] | | [place] | | [place] [address] | | + + + + + Care Team Providers + +------+ + | Care Pigment Making Supervisor Name | Role | Phone | + +------+ + | Mark Mayda Quinn ALMANZARP | PCP | | + +------+ + Reason for Visit + + + | Reason | Comments | + + + | Pre-op evaluation | | + + + Encounter Details +--------+ + + + + | Date | Type | Department | Care Team | Description | +--------+ + + + + | 08/09/ | Telephone-S | Pre-Operative | | Pre-op evaluation | | 2017 | tammy | [facility] | | [facility] | [facility] [address] | | | | | | [place], | | | | | | [place] [address] | | | | | | [phone] | | | +--------+ + + + [...] + +------+ | Meds | +------+ + + + No medications | on file. | + + + + + | No agents on file. | + + + + | No [...] by | 08/22/16 1545 by | | marisela | 08/22/16; 1545 | Anabel Turk RN [...] + + + + | Weight | - | - | | + + + + + | Height | 180.3 cm (5' 11") | 08/10/2016 9:54 AM | | | | | PDT | | + + + + + | Body Mass Index | - | - | | + + + + + documented in this encounter Patient Instructions Patient Instructions Sandrita Perez RN - 08/10/2016 10:04 AM PDTNothing to eat or drink a fter midnight. Check in at room 410 on the morning of surgery, next door to elevators on you r right. MD office will call you with your arrival time prior to you surgery. Please leave a ll jewelry at home day of surgery; rings, watches, necklaces, etc. Use no make - up, lotions , perfumes, or body powders on the day of your surgery. Patient advised of the above information via phone interview. Please bring your CPAP with y ou the day of surgery. Please continue to take your gemfibrozil the day of surgery with a small sip of water. documented in this encounter Plan of Treatment Not on filedocumented as of this encounter Visit Diagnoses Not on filedocumented in this encounter
--- OUTSIDE RECORDS SUMMARY | ~2019-11-02 | XMS | Encounter Summary ---
Demographics + + + | Address | [facility] [address] | | | [place] [address] | + + + | Home Phone | | + + + | Preferred Language | Unknown | + + + | Marital Status | | + + + | Sabianism Affiliation | Unknown | + + + | Race | Unknown | + + + | Ethnic Group | or | + + + Author + + + | Author | [facility] | | | and [place] | + + + | Organization | [facility] | | | [...] Team Providers + +------+ + | Care Staffing Assistant Name | Role | Phone | [...] cuff tear or | [address] | [place], [place] | | | | | rupture of | [address] | [address] | | | | | left | 110 | Phone: | | | | | shoulder, | [place], | [phone] | | | | | not | [place] [address] | Fax: | | | | | specified as | Phone: | [phone] | | | | | traumatic | [phone] | | | | | | Left | Fax: | | | | | | Shoulder | [phone] | | | | | | (urgent care | | | | | | | referring) | | | + +--------+ + + + + Encounter Details +--------+---------+ + + + | Date | Type | Department | Care Team | Description | +--------+---------+ + + + | 04/30/ | Office | [facility] | Pradip Servin, | S/P shoulder surgery | | 2020 | Visit | [facility] | MD [address] | (Primary Dx) | | | | MEDICINE JA[place] | [place] [address] | | | | | [address] | [phone] | | | | | [place], [place] | | | | | | [address] | | | | | | [phone] | | | +--------+---------+ + + + [...] + | Blood Pressure | 140/60 | 2019 11:42 AM | | | | | PST | | + + + + + | Pulse | 74 | 2019 11:42 AM | | | | | PST | | + + + + + | Temperature | - | - | | + + + + + | Respiratory Rate | - | - | | + + + + + | Oxygen Saturation | 96% | 2019 11:42 AM | | | | | PST | | + + + + + | Inhaled Oxygen | - | - | | | Concentration | | | | + + + + + | Weight | 97.9 kg (215 lb 12.8 | 2019 11:42 AM | | | | oz) | PST | | + + + + + | Height | 180.3 cm (5' 11") | 2019 11:42 AM | | | | | PST | | + + + + + | Body Mass Index | 30.1 | 2019 11:42 AM | | | | | PST | | + + + + + documented in this encounter Progress Bakari Cross PA - 2019 11:25 AM PSTFormatting of this note might be differen t from the original. [facility] Orthopaedic and Sports Medicine Service: Orthopedic Surgery Post Op Note Procedure: 1. Left shoulder arthroscopic debridement, extensive 2.Left shoulder arthroscopic subacromial decompression 3.Left open biceps tenodesis Date of Procedure: 02/16/2019 Subjective: Shankar Duffy is seen today for their post operative followup visit.. He states natalie balderas is still having pain and has difficulty with sleeping. He has returned to work and states he is doing well with occasional bouts of pain after activity. He has been going to physic al therapy regularly and states he has been diligent with working on his home exercises. He denies numbness or tingling. He has no other concerns. Objective: Wt Readings from Last 1 Encounters: 03/19/19 97.5 kg (215 lb) Temp Readings from Last 1 Encounters: 02/16/19 36.2 C (97.1 F) (Temporal) BP Readings from Last 1 Encounters: 03/19/19 134/82 Pulse Readings from Last 1 Encounters: 03/19/19 66 Exam:Left Shoulder Incisions are healing well without signs of infection. FF: 180, active Abd: 130, active. 150, passive Palpable radial pulse Sensation intact to light touch Assessment & Plan: I discussed with Shankar is progressing appropriately.. We discussed that he is feeling normal post-operative pain. We discussed that he continue to advance his activity and PT in a slow , step-william fashion, per the protocol, and to still be careful with how he uses his shoulder . All questions were answered and he agreed with this plan. We will see him back in 6 weeks for a follow up. An APF was given advancing his restrictions. Pradip Servin MD has created this entry using [employer] Voice Recognition software a [employer]. The entry has been reviewed and there [...] PRICE | | | | | | [facility] [place] [address] | | | | | | [phone] | | | | | | | | +--------+---------+ + + + documented as of this encounter Visit Diagnoses + + | Diagnosis | + + | S/P shoulder surgery - Primary Other postprocedural status | + + documented in this encounter
--- OUTSIDE RECORDS SUMMARY | ~2019-11-02 | XMS | Encounter Summary ---
Demographics + + + | Address | [address] | | | [place] [address] | + + + | Home Phone | | + + + | Preferred Language | Unknown | + + + | Marital Status | | + + + | Christianity Affiliation | CAT | + + + | Race | Unknown | + + + | Ethnic Group | or | + + + Author + + + | Author | [facility] | + + + | Organization | [facility] | + + + | Address | Unknown | + + + | Phone | Unavailable | + + + Support + + + + + | Name | Relationship | Address | Phone | + + + + + | Bernadette Chino | ECON | [address] | | | [place] | | [place] [address] | | + + + + + Care Team Providers + +------+ + | Care Toe Closing Machine Tender Name | Role | Phone | + +------+ + | Sherley MoraP | PCP | | + +------+ + Encounter Details +--------+ + + + + | Date | Type | Department | Care Team | Description | +--------+ + + + + | 05/20/ | Procedure | Diagnostic Imaging | | | | 2019 | Pass | [facility] | | | | | | [address] | | | | | | [place] | | | | | | [address] | | | | | | [phone] | | | +--------+ + + + [...]
--- OUTSIDE RECORDS SUMMARY | ~2019-11-02 | XMS | Encounter Summary ---
Demographics + + + | Address | [address] | | | [place] [address] | + + + | Home Phone [...] + + | Author | [facility] | + + + | Organization | [facility] | + + + | Address | Unknown | + + + | Phone | Unavailable | + + + Support + + + + + | Name | Relationship | Address | Phone | + + + + + | Bernadette Chino | ECON | [address] | | | [place] | | [place] [address] | | + + + + + Care Team Providers + +------+ + | Care Baggage Agent Name | Role | Phone | + +------+ + | Sherley Mora PHYSICAL SECURITY ENGINEER | PCP | | + +------+ + Reason for Referral Diagnostic Testing (Routine) +--------+--------+ + + + + | Status | Reason | Specialty | Diagnoses / | Referred By | Referred To | | | | | Procedures | Contact | Contact | +--------+--------+ + + + + | Closed | | Radiology | Diagnoses | Ever | [facility] | | | | | Arthritis | Evangelist Collazo MD | [address] | | | | | of left | [address] | | | | | acromioclavi | [address] | [place] | | | | | cular joint | | [address] | | | | | Tear of | [place], | Phone: | | | | | left rotator | [place] [address] | [phone] | | | | | cuff, | Phone: | | | | | | unspecified | [phone] | | | | | | tear extent | Fax: | | | | | | Procedures | [phone] | | | | | | X-RAY | | | | | | | ARTHROGRAM | | | | | | | SHOULDER LT | | | | | | | W/INJECTION | | | | | | | LA INJ PROC | | | | | [...] Closed | | Radiology | Diagnoses | [place], | [place] | | | | | Arthritis | Evangelist Collazo MD | [address] | | | | | of left | [address] | [address] | | | | | acromioclavi | [address] | [place] | | | | | cular joint | | [address] | | | | | Tear of | [place], | Phone: | | | | | left rotator | [place] [address] | [phone] | | | | | cuff, | Phone: | | | | | | unspecified | [phone] | | | | | | tear extent | Fax: | | | | | | Procedures | [phone] | | | | | | X-RAY | | | | | | | ARTHROGRAM | | | | | | | SHOULDER LT | | | | | | | W/INJECTION | | | | | | | LA INJ PROC | | | | | [...] | | 2019 | Encounter | at [facility] | [address] | | | | | [address] | [address] [place], | | | | | [place] | [place] [address] | | | | | [address] | [phone] | | | | | [phone] | | | +--------+ + + + [...] + + +---------+ + + | Fish Oil-[place]-3 | Take by mouth two | | [...] | + +--------+ + + + | X-RAY ARTHROGRAM | Routin | 06/23/2018 | Arthritis of left | Results for this | | SHOULDER LT | e | 2:18 PM | acromioclavicular | procedure are in the | | W/INJECTION | | PDT | joint Tear of left | results section. | | | | | rotator cuff, | | | | | | unspecified tear | | | | | | extent | | + +--------+ + + + | ORDERS OTHER | | 06/23/2018 | | Results for this | | | | 12:00 AM | | procedure are in the | | | | PDT | | results section. | + +--------+ + + + documented in this encounter Results X-RAY ARTHROGRAM SHOULDER LT W/INJECTION (06/23/2018 2:18 PM PDT) + + | Specimen | + + | | + + + + + | Narrative | Performed At | + + + | [address] | [facility] | | [place] [address] | DEPARTMENT OF | | [phone] Name: JUSTIN MANN Phys: | RADIOLOGY | | EVANGELIST CURTIS : 1970 Sex: M CSN: | | | MR# [id number] Exam Date: 06/23/2018 EXAM: | | | [...] Transcribed Date/Time: | | | 06/23/2018 16:26 Business Reporting Developer: FLUENCY | | + + + + + | Procedure Note | + + | Interface, Radiology Results - 06/23/2018 4:30 PM PDT [address] | | [address] [place] [address] | | Name: DISLA VILLEGASJUSTIN FAN Phys: EVEREVANGELIST Zay : 1970 Sex: M | | CSN: MR# [id number] Exam Date: 06/23/2018 EXAM:FLUOROSCOPIC GUIDED INJECTION | [...] | | |Transcribed Date/Time: 06/23/2018 16:26 | |Business Reporting Developer: FLUENCY | | | | | | | + + + +---------+ + + | Performing | Address | City/State/Zipcode | Phone Number | | Organization | | | | + +---------+ + + | [facility]MENT OF | | | | | RADIOLOGY | | | | + +---------+ + + ORDERS OTHER (06/23/2018 12:00 AM PDT) + + + | Narrative | Performed At | + + + | | | + + + documented in this encounter Visit Diagnoses + + | Diagnosis | + + | Arthritis of left acromioclavicular joint | + + | Tear of left rotator cuff, unspecified tear extent | + + documented in this encounter Administered Medications + +--------+ +--------+------+ + | Medication Order | MAR | Action | Dose | Rate | Site | | | Action | Date | | | | + +--------+ +--------+------+ + | gadopentetate dimeglumine | Given | 06/24/19 | 0.1 mL | | Left | | (MAGNEVIST) IV 0.1 mL 0.1 mL, | | 19 3:55 | | | Shoulder | | intravenous, PROCEDURE ONCE, 1 | | PM PDT | | | | | dose, 06/23/18 at 1600 | | | | | | + +--------+ +--------+------+ + + +---+ | | | + +---+ | gadopentetate dimeglumine | | | (MAGNEVIST) IV 1 dose, Starting | | | 06/23/18 at 1521, Until Mon | | | 06/23/18 at 1555 | | + +---+ | | | + +---+ + +-------+ +------+---+ + | iohexol (OMNIPAQUE) 300 mg | Given | 06/24/19 | 1 mL | | Left | | iodine/mL 30 mL 30 mL, | | 19 3:55 | | | Shoulder | | intravenous, PROCEDURE ONCE, 1 | | PM PDT | | | | | dose, 06/23/18 at 1600 | | | | | | + +-------+ +------+---+ + + +---+ | | | + +---+ | iohexol (OMNIPAQUE) 300 mg | | | iodine/mL 1 dose, Starting Mon | | | 06/23/18 at 1521, Until Mon | | | 06/23/18 at 1555 | | + +---+ | | | + +---+ + +-------+ +------+---+ + | lidocaine (XYLOCAINE) 20 mg/mL | Given | 06/24/19 | 4 mL | | Left | | (2 %) injection infiltration, | | 19 3:55 | | | Shoulder | | ONCE, 1 dose, 06/23/18 at 1630 | | PM PDT | | | | + +-------+ +------+---+ + +---+---+ | | | +---+---+ + +-------+ +------+---+ + | NaCl (PF) 0.9 % injection 9 mL | Given | 06/24/19 | 9 mL | | Left | | 9 mL, intravenous, ONCE, 1 dose, | | 19 3:56 | | | Shoulder | | 06/23/18 at 1630 | | PM PDT | | | | + +-------+ +------+---+ + + +---+ | | | + +---+ | NaCl (PF) 0.9 % injection 1 | | | dose, Starting Sat06/23/18 at | | | 1521, Until Sat06/23/18 at 1556 | | + +---+ | | | + +---+ documented in this encounter"
--- OUTSIDE RECORDS SUMMARY | ~2019-11-02 | XMS | Encounter Summary ---
Demographics + + + | Address | [facility] [address] | | | [place] [address] | + + + | Home Phone | | + + + | Preferred Language | Unknown | + + + | Marital Status | | + + + | Jainism Affiliation | Unknown | + + + | Race | Unknown | + + + | Ethnic Group | or | + + + Author + + + | Author | [facility] | | | and [place] | + + + | Organization | [facility] | | | [...] Team Providers + +------+ + | Care Oncology Research Rn Name | Role | Phone | + +------+ + | Unknown, Doctor | PCP | | + +------+ + Reason for Visit + +--------+ + | Reason | Onset | Comments | | | Date | | + +--------+ + | Medication Refill | 04/21/ | | | | 2020 | | + +--------+ + Encounter Details +--------+--------+ + + + | Date | Type | Department | Care Team | Description | +--------+--------+ + + + | 04/21/ | Refill | [facility] | Alisa Tsai, | Medication Refill | | 2019 | | [facility] | Neuropsychology Director | | | | | MEDICINE JAIME | | | | | | [address] [facility] | | | | | | [place], [place] | | | | | | [address] | | | | | | [phone] | | | +--------+--------+ + + + [...] Miscellaneous Notes Telephone Encounter - Alisa Tsai Neuropsychology Director - 04/21/2019 3:42 PM PSTKayli marroquin for Dr Servin approval 20 3:47 PM PSTdocumented in this encounter Plan of Treatment +--------+---------+ + + + | Date | Type | Specialty | Care Team | Description | +--------+---------+ + + + | 11/30/ | Office | Orthopedic Surgery | Pradip Servin, | | | 2019 | Visit | | [address] | | | | | | [place] [address] | | | | | | [phone] | | | | | | | | +--------+---------+ + + + documented as of this encounter Visit Diagnoses Not on filedocumented in this encounter"
--- OUTSIDE RECORDS SUMMARY | ~2019-11-02 | XMS | Encounter Summary ---
Demographics + + + | Address | [facility] [address] | | | [place] [address] | + + + | Home Phone | | + + + | Preferred Language | Unknown | + + + | Marital Status | | + + + | Restorationist Affiliation | Unknown | + + + | Race | Unknown | + + + | Ethnic Group | or | + + + Author + + + | Author | [facility] | | | and [place] | + + + | Organization | [facility] | | | [...] Team Providers + +------+ + | Care Web Site Developer Name | Role | Phone | [...] | | | Tear of | | Prdaip Garcia MD | | | | | rotator | | [address] | | | | | cuff, | | [place], | | | | | unspecified | | [place] [address] | | | | | laterality, | | Phone: | | | | | unspecified | | [phone] | | | | | tear extent, | | Fax: | | | | | unspecified | | [phone] | | | | | whether | [...] | | | | | | | [place] SHLDR | | | | | | | ARTHROSCOP,E | | | | | | | XTEN DEBRIDE | | | | | | | [place] | | | | | | | SHOULDER | | | | | | | SCOPE BONE | | | | | | | SHAVING [place] | | | | | | | [...] Description | +--------+---------+ + + + | 02/16/ | Surgery | [facility] | Pradip Servin, | REPAIR TENDON BICEPS | | 2019 | | [facility] | [address] | PROXIMAL | | | | [facility] | [place] [address] | | | | | OP [address] | [phone] | | | | | [place], [place] | | | | | | [address] | | | | | | [phone] | | | +--------+---------+ + + + [...] + + + | Blood Pressure | 155/86 | 02/16/2019 12:10 PM | | | | | PST | | + + + + + | Pulse | 89 | 02/16/2019 12:10 PM | | | | | PST | | + + + + + | Temperature | 36.2 C (97.1 F) | 02/16/2019 12:10 PM | | | | | PST | | + + + + + | Respiratory Rate | 20 | 02/16/2019 12:10 PM | | | | | PST | | + + + + + | Oxygen Saturation | 97% | 02/16/2019 12:10 PM | | | [...] on file. Follow up: Pradip Servin MD [address] [place] [address] [phone] Schedule an appointment as soon as possible [...] please natalie ally Servin s office at [phone] to schedule an appointment. Emergency Care ? [...] to the phone number bel ow. For [facility] offices located on [address] [place] [address] [address] on [address] [place] [address] please call . This will take you [...] to the phone number bel ow. For [facility] offices located on [address] [place] [address] and on [address] [place] [address] please call . This will take you [...] might be different fro m the original. [facility] Orthopaedic and Sports Medicine Service: Orthopedic [...] the left shoulder done at [facility] on 12/26/2018 reports degenerative change of [...] Servin MD has created this entry using [employer] Voice Recognition software a [employer] macros. The entry has been reviewed and there may still exist sound alike word err ors. documented in this en counter Nursing Notes Lacy Melton RN - 02/16/2019 9:08 AM PSTPrescription Rx and discharge information g iven to daughter at bedside, all questions answered. documented in this encounter Miscellaneous Notes Op Note - Pradip Servin MD - 02/16/2019 9:08 AM [facility] Service: Orthopedic Surgery Operative Note SURGEON: Mook Servin MD DIVER HELPER: Shaun Cantu PA-C PREOPERATIVE DIAGNOSIS: Left Shoulder [...] their hospital bed. They returned to the [facility] very room in stable condition. All counts were correct. Pradip Servin MD 02/16/2019 11:58 AM Pradip Servin MD has created this entry using [employer] Voice Recognition software a [employer]. The entry has been reviewed and there may still exist sound alike word err ors. documented in this en counter Plan of Treatment +--------+---------+ + + + | Date | Type | Specialty | Care Team | Description | +--------+---------+ + + + | 11/30/ | Office | Orthopedic Surgery | Pradip Servin, | | | 2019 | Visit | | [address] [facility] | | | | | | [place] [address] | | | | | | [phone] | | | | | | | [...] | | + +--------+ +--------+------+ + | bupivacaine (PF) (MARCAINE) | Given | 02/17/20 | 30 mLs | | Surgical | | 0.5% injection PRN, Starting Sat | | 19 11:58 | | | Site | | 02/16/19 at 1158, Intra-op | | AM PST | | | | + +--------+ +--------+------+ + +---+---+ | | | +---+---+ + + [...] 1 dose, Neftali, | | | Stella: emilio bah, | | + +---+ | | | + +---+ + +-------+ + +---+---+ | oxyCODONE-acetaminophen | Given | 02/17/20 | 1 tablet | | | | (PERCOCET) 5-325 mg per tablet | | 19 1:02 | | | | | 1-2 tablet 1-2 tablet, Oral, | | PM PST | | | | | ONCE, Sat02/16/19 at 1315, For 1 | | | | | | | dose, PACU Phase of Case, | | | | | | | Post-op/Phase II | | | | | | + +-------+ + +---+---+ +---+---+ | | | +---+---+ + +-------+ +-------+---+ + | sodium chloride for irrigation | Given | 02/17/20 | 6 mLs | | Shoulder | | 0.9% 3,000 mL with EPINEPHrine 1 | | 19 11:17 | | | -Left | | mg/mL 3 mg optesia mixture PRN, | | AM PST | | | | | Starting Sat02/16/19 at 1117, | | | | | | | Intra-op | | | | | | + +-------+ +-------+---+ + +---+---+ | | | +---+---+ documented in this encounter
--- OUTSIDE RECORDS SUMMARY | ~2019-11-02 | XMS | Encounter Summary ---
Demographics + + + | Address | [facility] [address] | | | [place] [address] | + + + | Home Phone | | + + + | Preferred Language | Unknown | + + + | Marital Status | | + + + | Judaism Affiliation | Unknown | + + + | Race | Unknown | + + + | Ethnic Group | or | + + + Author + + + | Author | [facility] | | | and [place] | + + + | Organization | [facility] | | | [...] Team Providers + +------+ + | Care Metallurgical Tester Name | Role | Phone | + +------+ + | Unknown, Doctor | PCP | | + +------+ + Encounter Details +--------+ + + + + | Date | Type | Department | Care Team | Description | +--------+ + + + + | 01/28/ | Preadmit | [facility] | | | | 2018 | Visit | [facility] | | | | | | [facility] [place] | | | | | | [facility] | | | | | | [address] | | | | | | [place], [place] | | | | | | [address] | | | | | | [phone] | | | +--------+ + + + [...] Weight | 99.8 kg (220 lb) | 01/28/2019 1:59 PM | | | | | PST | | + + + + + | Height | 180.3 cm (5' 11") | 01/28/2019 1:59 PM | | | | | PST | | + + + + + | Body Mass Index | 30.68 | 01/28/2019 1:59 PM | | | | | PST | | + + + + + documented in this encounter Patient Instructions Instructions Saundra Garcia RN - 01/28/2019You will be called by the Surgery Center after 2:00 pm the business day before your procedure for your ARRIVAL TIME. DO NOT EAT anything after midnight. This includes gum and mints. You may have CLEAR LIQUIDS up to 6 hours BEFORE ARRIVAL TIME: water & apple juice. You must arrange for a responsible adult to drive you home after your procedure. Children must have a parent stay inside the Surgery Center at all times. Do not wear makeup, jewelry, body piercing's or perfume/cologne. Please leave valuables at home. If having extremity surgery please remove all NAIL COLOMBIAN. Please leave contact lenses at home. Bring a case for eyeglasses & hearing aids. PAS COMPLETED. QUESTIONS ANSWERED. documented in this encounter Plan of Treatment +--------+---------+ + + + | Date | Type | Specialty | Care Team | Description | +--------+---------+ + + + | 11/30/ | Office | Orthopedic Surgery | Pradip Servin, | | | 2019 | Visit | | [address] | | | | | | [place] [address] | | | | | | [phone] | | | | | | | | +--------+---------+ + + + documented as of this encounter Visit Diagnoses Not on filedocumented in this encounter
--- OUTSIDE RECORDS SUMMARY | ~2019-11-02 | XMS | Encounter Summary ---
Demographics + + + | Address | [facility] [address] | | | [place] [address] | + + + | Home Phone | | + + + | Preferred Language | Unknown | + + + | Marital Status | | + + + | Denominational Affiliation | Unknown | + + + [...] Team Providers + +------+ + | Care Dairy Powder Mixer Operator Name | Role | Phone | + +------+ + | Unknown, Doctor | PCP | | + +------+ + Reason for Visit +--------+ + | Reason | Comments | +--------+ + | Other | PT Progress Note | +--------+ + Encounter Details +--------+ + + + + | Date | Type | Department | Care Team | Description | +--------+ + + + + | 04/01/ | Documentati | [facility] | Pradip Servin, | Other (PT Progress | | 2020 | on | [facility] | MD [address] | Note) | | | | MEDICINE JA[facility] | [place] [address] | | | | | [address] | [phone] | | | | | [place], [place] | | | | | | [address] | | | | | | [phone] | | | +--------+ + + + [...] | | | | | [place] [address] | | | | | | [phone] | | | | | | | | +--------+---------+ + + + documented as of this encounter Visit Diagnoses Not on filedocumented in this encounter"
--- OUTSIDE RECORDS SUMMARY | ~2019-11-02 | XMS | Encounter Summary ---
Demographics + + + | Address | [address] | | | [place] [address] | + + + | Home Phone | | + + + | Preferred Language | Unknown | + + + | Marital Status | | + + + | Protestant Affiliation | CAT | + + + [...] | | [address] | | [place] [address] | | + + + + + Care Team Providers + +------+ + | Care Rehab Physician Name | Role | Phone | + +------+ + | Sherley MoraP | PCP | | + +------+ + Encounter Details +--------+ + + + + | Date | Type | Department | Care Team | Description | +--------+ + + + + | 04/30/ | Document-Sc | [facility] | Aakash Faith MD | | | 2019 | anned | Sports Medicine & | [address] | | | | | Orthopaedic Surgery | [place], | | | | | [place] | [place] [address] | | | | | [place], [place] | [phone] | | | | | [address] | | | | | | [phone] | | | +--------+ + + + [...]
[2019-11-02] MEDS ORDERED: GEMFIBROZIL600 MG PO (14:23)
[2019-11-02] MEDS ORDERED: FISH OIL 1,0001 EAC5 PO (14:24)
[2019-11-02] MEDS ORDERED: TIZANIDINE HCL4 M1 PO (14:24)
[2019-11-02] MEDS ORDERED: GLUCOPHAGE XR500 MG PO (14:25)
[2019-11-02] MEDS ORDERED: OMEPRAZOLE20 MG PO (16:28)
--- NOTE | 2019-11-03 11:00 | EKG ---
[facility] [address] [facility] [place], [place] [address] Signed Normal sinus rhythm Normal ECG No previous ECGs available Confirmed by DARYL AMAYA MD ([id number]) on 11/03/2019 11:00:17 AM Electronically Signed By: DARYL AMAYA MD 11/03/19 1100 PATIENT NAME: JUSTIN DISLA Electrocardiogram DATE OF : 70 PHYSICIAN: DARYL AMAYA MD REPORT #: [id number] REPORT IS CONFIDENTIAL AND NOT TO BE RELEASED WITHOUT AUTHORIZATION
== END 2019-11-02 16:41 | disposition home or self-care (01) ==
LOC: ED 14:05
DX: K21.9 Gastro-esophageal reflux disease without esophagitis (principal); E11.9 Type 2 diabetes mellitus without complications; Z79.84 Long term (current) use of oral hypoglycemic drugs; Z79.899 Other long term (current) drug therapy
CPT/HCPCS: 71045; 80053; 83735; 84484; 85025; 93005; 93010; 99285-25

== ENCOUNTER 2020-01-03 16:06 | Emergency (ER) | payer BC ==
[~2020-01-03] VITALS: Ht 180.3 cm; Wt 100.2 kg
[~2020-01-03 16:06] MED LIST: FISH OIL 1,0001 EAC5 PO; GEMFIBROZIL600 MG PO; GLUCOPHAGE XR500 MG PO; OMEPRAZOLE20 MG PO; TIZANIDINE HCL4 M1 PO
[2020-01-03] MEDS ORDERED: KEFLEX500 MG PO (17:16)
== END 2020-01-03 17:53 | disposition home or self-care (01) ==
LOC: ED 16:06
DX: S61.216A Laceration without foreign body of right little finger without damage to nail, initial encounter (principal); W29.8XXA Contact with other powered hand tools and household machinery, initial encounter; E11.9 Type 2 diabetes mellitus without complications; Z79.899 Other long term (current) drug therapy; Z79.84 Long term (current) use of oral hypoglycemic drugs
CPT/HCPCS: 73140; 90471; 90715; 99283-25

== ENCOUNTER 2020-01-17 16:38 | Emergency (ER) | payer BC ==
[~2020-01-17] VITALS: Ht 180.3 cm; Wt 100.2 kg
[~2020-01-17 16:38] MED LIST changes: +KEFLEX500 MG PO
--- OUTSIDE RECORDS SUMMARY | 2020-01-17 16:40 | XMS ---
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 Demi VISIT COUNT ([address] [facility] TOTAL 3 NOTE: Visits indicate total known visits. ED/UCC VISIT TRACKING (12 MO.) 01/17/2020 16:38 [facility] [place] TYPE: Emergency COMPLAINT: - LACERATION LEFT FINGER 01/03/2020 16:06 [facility] [place] TYPE: Emergency COMPLAINT: - LACERATION DIAGNOSES: - Type 2 diabetes mellitus without complications - USP (current) use of oral hypoglycemic drugs - Other termite helper (current) drug therapy - Contact with other powered hand tools and household machinery, initial encounter - Laceration without foreign body of right little finger without damage to nail, initial encounter 11/02/2019 14:05 [facility] [place] TYPE: Emergency COMPLAINT: - CHEST PAIN DIAGNOSES: - Gastro-esophageal reflux disease without esophagitis - terminal gauger (current) use of oral hypoglycemic drugs - Type 2 diabetes mellitus without complications - Chest pain, unspecified - Other termite helper (current) drug therapy INPATIENT VISIT TRACKING (12 MO.) No inpatient visits to display in this time frame [email or web address]
[2020-01-17] MEDS ORDERED: CEPHALEXIN500 MG PO (16:54)
[2020-01-17] MEDS ORDERED: METFORMIN HCL500 MG PO (16:54)
== END 2020-01-17 17:58 | disposition home or self-care (01) ==
LOC: ED 16:38
DX: S67.191A Crushing injury of left index finger, initial encounter (principal); W23.0XXA Caught, crushed, jammed, or pinched between moving objects, initial encounter; E11.9 Type 2 diabetes mellitus without complications; Z79.899 Other long term (current) drug therapy; Z79.84 Long term (current) use of oral hypoglycemic drugs
CPT/HCPCS: 12002; 73140; 99283-25

== ENCOUNTER 2020-03-30 14:04 | Emergency (ER) | payer BC ==
[~2020-03-30] VITALS: Ht 180.3 cm; Wt 97.1 kg
[~2020-03-30 14:04] MED LIST changes: +CEPHALEXIN500 MG PO; +METFORMIN HCL500 MG PO
[2020-03-30] MEDS ORDERED: ZITHROMAX250 MG PO (16:17)
--- NOTE | 2020-03-30 22:23 | EKG ---
[facility] [address] [place] [address] Signed Sinus tachycardia Otherwise normal ECG When compared with ECG of 02-NOV-2019 14:13, Vent. rate has increased BY [address] no longer elevated in Inferior leads Inverted T waves have replaced nonspecific T wave abnormality in Inferior leads Confirmed by DAVID FULLER MD ([id number] on 03/30/2020 10:23:31 PM Electronically Signed By: DAVID FULLER MD 03/30/203 PATIENT NAME: JUSTIN DISLA Electrocardiogram DATE OF : 70 PHYSICIAN: DAVID FULLER MD REPORT #: [id number] REPORT IS CONFIDENTIAL AND NOT TO BE RELEASED WITHOUT AUTHORIZATION
== END 2020-03-30 16:52 | disposition home or self-care (01) ==
LOC: ED 14:04
DX: U07.1 COVID-19 (principal); J12.82 Pneumonia due to coronavirus disease 2019; E11.9 Type 2 diabetes mellitus without complications; Z79.899 Other long term (current) drug therapy; Z79.84 Long term (current) use of oral hypoglycemic drugs
CPT/HCPCS: 71045; 80053; 83880; 85025; 85379; 93005; 93010; 96365; 99285-25; A9270; J0696; J7040